=== PATIENT | female | born 1955 | race Caucasian/White ===

== ENCOUNTER 2019-11-02 09:31 | Outpatient (CLI) | payer OTHER, SELFPAY ==
--- NOTE | ~2019-11-02 | MM_ITS ---
EXAMINATION: MM screening [facility] BI w eli HISTORY: Screening mammogram TECHNIQUE: Craniocaudal and mediolateral oblique 3-D tomosynthesis images were obtained and synthetic 2-D images were generated. CAD analysis was submitted and interpreted. COMPARISON: 05/05/2017, 05/02/2016, 08/21/2014 BREAST PARENCHYMAL COMPOSITION: There are scattered areas of fibroglandular density. FINDINGS: Scattered benign-appearing calcifications are present. There is no evidence of suspicious m ass, calcification, or architectural distortion to suggest malignancy in either breast. There has bee n no suspicious interval change. IMPRESSION: 1. No mammographic evidence of malignancy. 2. Recommend routine screening mammography in one year. BI-RADS Category 2: Benign finding(s). Reviewed, dictated and finalized at location A.
--- NOTE | ~2019-11-02 | DEXA_ITS ---
BMD(1) Young-Adult(2) Age-Matched(3) Region (g/cm2) T-score Z-score WHO Classification L1 0.892 -2.0 -0.9 Osteopenia L2 0.829 -3.1 -2.0 Osteoporosis L3 1.024 -1.5 -0.4 Osteopenia L4 0.861 -2.8 -1.6 Osteoporosis L1-L4 0.900 -2.4 -1.2 Osteopenia Trend: L1-L4 Change vs Change vs Measured Age BMD(1) Baseline Previous Date (years) (g/cm2) (%) (%) 11/02/2019 [age] 0.900 -1.9 -1.9 05/02/2016 61.2 0.917 baseline - 1 - Statistically 68% of repeat scans fall within 1SD (+- 0.010 g/cm2 for AP Spine L1-L4) 2 - [place] (Combined NHANES (ages 20-30) / Kitchenbug (ages 20-40)) AP Spine Reference Population (v112) 3 - Matched for Age, Weight (females 25-100 kg), Ethnic 11 - World Health Organization - Definition of Osteoporosis and Osteopenia for Women: Normal = T-score at or above -1.0 SD; Osteopenia = T-score between -1.0 and -2.5 SD; Osteoporosis = T-score at or below -2.5 SD; (WHO definitions only apply when a young healthy Women reference database is used to determine T-scores.) Printed: 11/02/2019 10:22:30 AM (13.60)76:3.00:50.00:12.0 0.00:12.78 0.60x1.05 27.6:%Fat=34.7% 0.00:0.00 0.00:0.00 Filename: [id number] Scan Mode: Standard;iRewardChartcan 37.0 [employer] [id number] BMD(1) Young-Adult(2,7) Age-Matched(3) Region (g/cm2) T-score Z-score WHO Classification Neck Left 0.766 -2.0 -0.7 Osteopenia Right 0.760 -2.0 -0.8 Osteopenia Mean 0.763 -2.0 -0.7 Osteopenia Difference 0.006 0.0 0.0 - Total Left 0.843 -1.3 -0.3 Osteopenia Right 0.826 -1.4 -0.5 Osteopenia Mean 0.834 -1.4 -0.4 Osteopenia Difference 0.016 -0.1 -0.1 - Hip [place] Length Comparison (mm) (Right = 94.2 mm) (Mean = 101.3 mm) (Left = 94.8 mm) Trend: Total Mean Change vs Change vs Measured Age BMD(1) Baseline Previous Date (years) (g/cm2) (%) (%) 11/02/2019 64.7 0.834 baseline - 1 - Statistically 68% of repeat scans fall within 1SD (+- 0.010 g/cm2 for DualFemur Total) 2 - [place] (Combined NHANES (ages 20-30) / [employer]bug (ages 20-40)) Femur Reference Population (v112) 3 - Matched for Age, Weight (females 25-100 kg), Ethnic 7 - DualFemur Total T-score difference is 0.1. Asymmetry is None. 11 - World Health Organization - Definition of Osteoporosis and Osteopenia for Women: Normal = T-score at or above -1.0 SD; Osteopenia = T-score between -1.0 and -2.5 SD; Osteoporosis = T-score at or below -2.5 SD; (WHO definitions only apply when a young healthy Women reference database is used to determine T-scores.) Printed: 11/02/2019 10:22:31 AM (13.60); Filename: [id number]; Right Femur; 22.1:%Fat=40.9%; Neck Angle (deg)= 60; Scan Mode: Standard 37.0 uGy; Left Femur; 21.7:%Fat=43.8%; Neck Angle (deg)= 67; Scan Mode: Standard 37.0 uGy [employer] [id number] Dear Ramila Fong, Your patient Lisa Colon completed a BMD test on 11/02/2019 using the Media Redefined DXA System (analysis version: 13.60) manufactured by [employer]. The following summarizes the results of our evaluation. PATIENT BIOGRAPHICAL: Name: Lisa Colon Date: 1955 Height: 60.0 in. Gender: Female
== END 2019-11-02 09:32 | disposition home or self-care (01) ==
LOC: CHSIMG 09:33
PROVIDERS: PCP Nurse Practitioner Family; Visit Provider Nurse Practitioner Family
DX: Z12.31 Encounter for screening mammogram for malignant neoplasm of breast (principal); Z78.0 Asymptomatic menopausal state
CPT/HCPCS: 77063; 77067; 77080

== ENCOUNTER 2020-09-06 11:46 | Emergency (ER) | payer OTHER, SELFPAY ==
--- NOTE | ~2020-09-06 | CT_ITS ---
EXAMINATION: CT brain wo con DATE: 09/06/2020 12:44 INDICATION: Head injury post fall with laceration to left eyebrow TECHNIQUE: Computed tomography (CT) of the head was performed without intravenous contrast. Sagittal and coronal reconstructions were performed. The mA was adjusted according to patient size. Iterative reconstruction technique was employed. The dose-length product was 529.67 mGy-cm. COMPARISON: head CT dated 02/02/2017 FINDINGS: No fracture. No acute intracranial hemorrhage, acute infarction or abnormal extra axial fluid collect ion. Small region of encephalomalacia at the inferomedial right frontal lobe which could be related t o old infarct or trauma. There is mild scattered white matter hypoattenuation consistent with chronic small vessel ischemic disease. Symmetric prominence of the sulci consistent with mild age-appropriat e diffuse cerebral volume loss. Ventricles are normal and symmetric with normal variant cavum septum pellucidum et vergae. No mass/mass effect. A few small sclerotic lesions in the frontal bone which g iven lack of interval change in over 3 years or most likely benign. The orbits, paranasal sinuses and mastoid air cells are normal. IMPRESSION: 1. No fracture or acute intracranial process. 2. Unchanged small focus of encephalomalacia along the inferomedial right frontal lobe which could re present sequela of old infarct or trauma. 3. Age-related changes including mild diffuse volume loss and mild scattered white matter hypoattenua tion consistent with chronic small vessel ischemic disease. Reviewed, dictated and finalized at location A. IMPRESSION: 1. No fracture or acute intracranial process. 2. Unchanged small focus of encephalomalacia along the inferomedial right front al lobe which could represent sequela of old infarct or trauma. 3. Age-related changes including mild diffuse volume loss and mild scattered wh ite matter hypoattenuation consistent with chronic small vessel ischemic diseas e.
[2020-09-06 11:51] VITALS: BP 144/92; PULSE 58; RESP 18; TEMP 36.6; O2SAT 97
--- NOTE | 2020-09-06 11:52 | ECG_ITS ---
Measurements Intervals [place] Rate: 55 P: 52 NM: 147 QRS: 87 QRSD: 110 T: 14 QT: 397 QTc: 380 Interpretive Statements SINUS BRADYCARDIA INCOMPLETE RIGHT BUNDLE BRANCH BLOCK INFERIOR INFARCT, AGE INDETERMINATE ABNORMAL ECG Electronically Signed On 09-06-2020 12:12:10 CDT by Norris Hastings D.O.
[2020-09-06 12:07] LABS: Basophils Absolute Auto 0.06 K/mm3 (0.00-0.10); Hematocrit 36.5 % (35.0-42.0); Hemoglobin 11.6 g/dL (11.7-13.8); Immature Granulocyte Absolute 0.03 K/mm3 (0.00-0.00); Immature Granulocyte Percent A 0.5 % (0.0-0.0); Lymphocytes Absolute Auto 1.22 K/mm3 (1.10-4.50); Lymphocytes Percent Auto 20.5 % (18.0-42.0); Mean Corpuscular HGB Conc 31.8 g/dL (32.0-36.0); Mean Corpuscular Hemoglobin 29.7 pg (27.0-31.0); Mean Corpuscular Volume 93.6 fL (78.0-102.0); Mean Platelet Volume 8.9 fl (9.2-11.8); Monocytes Absolute Auto 0.58 K/mm3 (0.10-0.90); Monocytes Percent Auto 9.7 % (2.0-11.0); Neutrophils Absolute Auto 3.8 K/mm3 (1.7-7.2); Neutrophils Percent Auto 63.3 % (50.0-70.0); Platelet Count Result 271 K/mm3 (150-420); Red Cell Distribution Width 13.3 % (11.6-14.4)
[2020-09-06 12:35] LABS: Alanine Aminotransferase 35 U/L (14-59); Albumin Level 3.4 g/dL (3.4-5.0); Alkaline Phosphatase 198 U/L (46-116); Anion Gap 6 mmol/L (8-16); Aspartate Amino Transferase 24 U/L (15-37); Bilirubin,Total 0.2 mg/dL (0.00-1.00); Blood Urea Nitrogen 15 mg/dL (7-18); Calcium 9.9 mg/dL (8.5-10.1); Carbon Dioxide 27 mmol/L (21-32); Chloride 101 mmol/L (98-108); Estimated CRCL calculation 60 ml/min; Estimated Glomerular Filt Rate > 60; Glucose 94 mg/dL (70-99); Osmolality Calculated 278 mOsm/kg (285-295); Potassium 4.7 mmol/L (3.5-5.1); Sodium 134 mmol/L (136-145); Thyroid Stimulating Hormone 4.21 uIU/mL (0.36-3.74); Total Protein 8.5 g/dL (6.4-8.2)
[2020-09-06 12:45] VITALS: BP 145/48; PULSE 54
[2020-09-06 12:48] VITALS: BP 151/52; PULSE 56
[2020-09-06 12:52] LABS: Add Urine Microscopic? YES; Appearance Urine Clear (Clear); Bilirubin Urine Negative (Negative); Blood Urine Negative (Negative); Color Urine Yellow (Yellow); Glucose Urine UA Negative (Negative); Ketones Urine Negative (Negative); Leukocyte Esterase Ur 1+ (Negative); Nitrate Urine Negative (Negative); Protein Urine Negative (Negative); Urobilinogen Urine 0.2 mg/dL (0.2-1.0)
[2020-09-06 12:55] VITALS: PULSE 56; RESP 18; O2SAT 95
--- NOTE | 2020-09-06 12:57 | ED.FALL ---
HPI - Fall General Chief Complaint: Fall Stated Complaint: Ambulance Source: patient Mode of arrival: ambulatory Limitations: no limitations History of Present Illness HPI Narrative: this is a 65-year-old female who presents via EMS after she sent sustained a fall earlier today at home has a history of dizziness is currently on meclizine have a history of hypertension and depression, she fell hit her head known if she lost consciousness but the patient says she made lost consciousness for a few seconds has a history of hypothyroidism as well with an abrasion to the left eyebrow area with no nausea vomiting, no headache no fever chills no chest pain no arm or hip pain no neurological deficits no bowel or bladder loss. complaint: fall Onset (ago): hour(s) Fall from: standing Fall witnessed: no Place fall occurred: home Loss of consciousness: unsure Length of LOC: second(s) Prolonged down time: no Symptoms prior to fall: dizziness Location of injury: head Related Data Home Medications Medication Instructions Recorded Confirmed acetaminophen 650 mg PO Q4H PRN 09/06/20 09/06/20 albuterol sulfate 90 mcg INHALATION Q4-6H PRN 09/06/20 09/06/20 alendronate [Fosamax] 70 mg PO WEEKLY 09/06/20 09/06/20 aluminum-magnesium hydroxide 30 ml PO Q4H PRN 09/06/20 09/06/20 [Mylanta] amlodipine 100 mg PO QID PRN 09/06/20 09/06/20 carbamazepine 100 mg PO TID 09/06/20 09/06/20 clotrimazole 1 applic TOPICAL TID 09/06/20 09/06/20 docusate sodium 200 mg PO DAILY PRN 09/06/20 09/06/20 ergocalciferol (vitamin D2) 50,000 unit PO DAILY 09/06/20 09/06/20 famotidine 20 mg PO DAILY 09/06/20 09/06/20 guaifenesin [Robafen] 200 mg PO Q4H PRN 09/06/20 09/06/20 ibuprofen 600 mg PO BID 09/06/20 09/06/20 levothyroxine 112 mcg PO DAILY 09/06/20 09/06/20 loratadine 10 mg PO DAILY 09/06/20 09/06/20 meclizine 12.5 mg PO TID PRN 09/06/20 09/06/20 nystatin 1 applic TOPICAL BID 09/06/20 09/06/20 nystatin [Nystop] 1 applic TOPICAL BID 09/06/20 09/06/20 phenobarbital 64.8 mg PO DAILY 09/06/20 09/06/20 phenol [Chloraseptic] 2 spray MUCOUS MEMBRANE TID PRN 09/06/20 09/06/20 potassium chloride 20 meq PO DAILY 09/06/20 09/06/20 sertraline 50 mg PO DAILY 09/06/20 09/06/20 sertraline 100 mg PO DAILY 09/06/20 09/06/20 vitamin B complex [B 1 tablet PO DAILY 09/06/20 09/06/20 Complex-Vitamin B12] Allergies Allergy/AdvReac Type Severity Reaction Status Date / Time Penicillins Allergy Unknown Verified 09/06/20 11:55 Review of Systems Review of Systems: All systems reviewed & are unremarkable except as noted in HPI and below PMFSH Past Medical History Medical History HTN (hypertension) Hypothyroidism (acquired) Exam Const: General: healthy appearing, no acute distress and alert Orientation/consciousness: patient oriented x3 HENMT: Head: normal to inspection Eyes: Conjunctivae: conjunctivae normal Pupils: Equal, round and reactive pupils present Neck: Neck: normal visual inspection, no lymphadenopathy and no meningeal signs Chest: Chest palpation & inspection: normal inspection of the chest Resp: Effort & Inspection: normal respiratory effort Cardio: Rate: regular rate Rhythm: regular rhythm GI: Auscultation: normal bowel sounds : General: Yes no CVA tenderness Skin: General skin exam: normal color Other: abrasion over left eyebrow Neuro: General: patient oriented x3, moves all extremities, no meningeal signs and no focal motor deficits Speech: normal speech Gait exam (Neuro): Normal gait present Extrem: General: normal to inspection and no pedal edema Psych: Appearance: grossly normal and well kempt Mental Status: mental status grossly normal Affect: normal affect Thought content: Yes Normal thought content present Course Course Emergency Course: reassessment of patient, patient is doing well reviewed her CT scan and lab findings with the patient and currently she is not orthos
[2020-09-06 12:58] LABS: Bacteria Urine 1+ /hpf; RBC Urine None seen /hpf (0-2); Squamous Epithelial Cell Urine Few /hpf (Few)
[2020-09-06] MEDS: TETANUS,DIPHTHERIA,AC PERTUSSIS ADULT 0.5 ML (ADACEL) IM (13:10)
[2020-09-06 13:33] VITALS: BP 161/62; PULSE 58; RESP 16; O2SAT 99
== END 2020-09-06 13:32 | disposition home or self-care (01) ==
PROVIDERS: Emergency Provider Emergency Medicine; PCP Internal Medicine
DX: R55 Syncope and collapse (principal); N30.00 Acute cystitis without hematuria
CPT/HCPCS: 36415; 70450; 80053; 81001; 84443; 85025; 90471; 90715; 93005; 99283; 99284

== ENCOUNTER 2020-11-05 11:34 | Outpatient (CLI) | payer OTHER, SELFPAY ==
--- NOTE | ~2020-11-05 | XR_ITS ---
EXAMINATION: XR knee RT 3V DATE: 11/05/2020 12:03 INDICATION: Right knee pain. TECHNIQUE: 3 views of right knee were obtained. COMPARISON: Right knee radiographs 10/11/2015 FINDINGS: Bone alignment is normal. No fracture. There is moderate osteoarthritis of lateral compartm ent and mild osteoarthritis of medial and patellofemoral compartments. There is a small knee joint ef fusion. IMPRESSION: 1. Moderate right knee osteoarthritis. 2. Small right knee joint effusion. Reviewed, dictated and finalized at location A.
--- NOTE | ~2020-11-05 | MM_ITS ---
EXAMINATION: MM screening [facility] BI w eli HISTORY: Screening mammogram TECHNIQUE: Craniocaudal and mediolateral oblique 3-D tomosynthesis images were obtained and synthetic 2-D images were generated. CAD analysis was submitted and interpreted. COMPARISON: 11/02/2019, 05/05/2017, 05/02/2016 BREAST PARENCHYMAL COMPOSITION: There are scattered areas of fibroglandular density. FINDINGS: There is no evidence of suspicious mass, calcification, or architectural distortion to sugg est malignancy in either breast. There has been no suspicious interval change. IMPRESSION: 1. No mammographic evidence of malignancy. 2. Recommend routine screening mammography in one year. BI-RADS Category 1: Negative Reviewed, dictated and finalized at location A.
== END 2020-11-05 11:35 | disposition home or self-care (01) ==
LOC: CHSIMG 11:37
PROVIDERS: PCP Internal Medicine; Visit Provider Internal Medicine
DX: M25.561 Pain in right knee (principal); Z12.31 Encounter for screening mammogram for malignant neoplasm of breast
CPT/HCPCS: 73562; 77063; 77067

== ENCOUNTER 2020-12-17 09:54 | Outpatient (CLI) | payer OTHER, SELFPAY ==
[2020-12-17 11:21] LABS: Anion Gap 8 mmol/L (8-16); Blood Urea Nitrogen 10 mg/dL (7-18); Calcium 9.5 mg/dL (8.5-10.1); Carbon Dioxide 25 mmol/L (21-32); Chloride 102 mmol/L (98-108); Estimated Glomerular Filt Rate > 60; Glucose 96 mg/dL (70-99); Osmolality Calculated 279 mOsm/kg (285-295); Potassium 5.4 mmol/L (3.5-5.1); Sodium 135 mmol/L (136-145)
== END 2020-12-17 09:55 | disposition home or self-care (01) ==
LOC: CHSLAB 09:55
PROVIDERS: PCP Internal Medicine; Visit Provider Internal Medicine
DX: I10 Essential (primary) hypertension (principal)
CPT/HCPCS: 36415; 80048

== ENCOUNTER 2021-01-15 18:06 | Emergency (ER) | payer OTHER, SELFPAY ==
--- NOTE | ~2021-01-15 | CT_ITS ---
EXAMINATION: CT brain wo con DATE: 01/15/2021 19:17 INDICATION: Fall with anterior left scalp laceration. TECHNIQUE: Computed tomography (CT) of the head was performed without intravenous contrast. Sagittal and coronal reconstructions were performed. The mA was adjusted according to patient size. Iterative reconstruction technique was employed. The dose-length product was 681.00 mGy-cm. COMPARISON: head CT dated 09/06/2020 and 02/02/2017 FINDINGS: Small scalp hematoma along the superolateral rim of the left orbit. No fracture. No interval change i n a small region of encephalomalacia along the inferomedial anterior right frontal lobe likely sequel a of old infarct or trauma. No acute intracranial hemorrhage, acute infarction or abnormal extra axia l fluid collection. There is mild scattered white matter hypoattenuation consistent with chronic smal l vessel ischemic disease. Symmetric prominence of the sulci consistent with mild age-appropriate dif fuse cerebral volume loss. Ventricles are normal and symmetric with normal variant cavum septum lucid um et vergae. No mass/mass effect. Again seen are a few unchanged likely benign chronic small sclerot ic bone lesions which can be seen dating back to CT dated 02/02/2017. The orbits, paranasal sinuses an d mastoid air cells are normal. IMPRESSION: 1. No fracture or acute intracranial process. 2. Unchanged small focus of encephalomalacia along the inferomedial anterior right frontal lobe which could represent sequela of old infarct or trauma. 2. Age-related changes including mild diffuse volume loss and mild scattered white matter hypoattenua tion consistent with chronic small vessel ischemic disease. Reviewed, dictated and finalized at location A. IMPRESSION: 1. No fracture or acute intracranial process. 2. Unchanged small focus of encephalomalacia along the inferomedial anterior ri ght frontal lobe which could represent sequela of old infarct or trauma. 2. Age-related changes including mild diffuse volume loss and mild scattered wh ite matter hypoattenuation consistent with chronic small vessel ischemic diseas e.
--- NOTE | ~2021-01-15 | CT_ITS ---
EXAMINATION: CT cervical spine wo con DATE: 01/15/2021 19:17 INDICATION: Head injury post fall TECHNIQUE: Computed tomography (CT) of the cervical spine was performed without intravenous contrast. Automated exposure control and iterative reconstruction technique were employed. The dose-length pro duct was 681.00 mGy-cm. COMPARISON: Thoracic spine MR dated 07/20/2013 FINDINGS: Alignment is normal. Moderate osteoarthritis at the atlantoaxial articulation with cystic change at t he base of the dens. Vertebral body heights are normal. No fracture. Moderate disc height loss at C5- C6 with posterior disc osteophyte complex resulting in mild to moderate central canal stenosis. Disc bulges throughout the remainder of the cervical spine result in multilevel mild central canal stenosi s. Additional mild disc height loss at C4-C5 and C6-C7. Severe uncovertebral osteoarthritis bilateral ly at C5-C6 and on the left at both C4-C5 and C6-C7. Severe facet osteoarthritis on the left at C4-C5 with results in moderate neural foraminal stenosis. Multilevel mild to moderate uncovertebral and fa cet osteoarthritis contributing to mild neural foraminal stenosis of the left and right at multiple l evels of the remaining cervical spine. Cervical soft tissues and apices of lungs are unremarkable. IMPRESSION: 1. Moderate cervical spondylosis. No acute osseous abnormality. Reviewed, dictated and finalized at location A.
--- NOTE | ~2021-01-15 | XR_ITS ---
EXAMINATION: XR chest 1V portable DATE: 01/15/2021 19:17 INDICATION: Syncope TECHNIQUE: frontal view of the chest was obtained. COMPARISON: Chest radiograph dated 05/11/2019 FINDINGS: The lungs are clear with no focal airspace opacities, pulmonary edema, pleural effusion or pneumothor ax. The cardiomediastinal silhouette is within normal limits for AP technique. Moderate thoracic spon dylosis. IMPRESSION: 1. No acute cardiopulmonary disease. Reviewed, dictated and finalized at location A.
--- NOTE | 2021-01-15 18:28 | ECG_ITS ---
Measurements Intervals [place] Rate: 53 P: 61 [place]: 146 QRS: 76 QRSD: 114 T: 27 QT: 420 QTc: 397 Interpretive Statements SINUS BRADYCARDIA INCOMPLETE RIGHT BUNDLE BRANCH BLOCK MINIMAL Q WAVES- INFERIOR LEADS BORDERLINE ECG Electronically Signed On 01-15-2021 20:23:57 CDT by Norris Hastings D.O.
--- NOTE | 2021-01-15 18:34 | ED.FALL ---
HPI - Fall General Chief Complaint: Fall Stated Complaint: AMB Time Seen by Provider: 01/15/21 18:08 Source: patient, EMS and RN notes reviewed Mode of arrival: EMS Limitations: no limitations History of Present Illness MD complaint: fall Onset (ago): hour(s) (1) Fall from: standing Place fall occurred: street Loss of consciousness: none Prolonged down time: no Symptoms prior to fall: dizziness and palpitations Context: tripped/slipped Location of injury: face Severity scale (1-10): 4 Quality: dull and aching Associated symptoms (after fall): headache and lightheaded Related Data Home Medications Medication Instructions Recorded Confirmed acetaminophen 650 mg PO Q4H PRN 09/06/20 01/15/21 albuterol sulfate 90 mcg INHALATION Q4-6H PRN 09/06/20 01/15/21 alendronate [Fosamax] 70 mg PO WEEKLY 09/06/20 01/15/21 aluminum-magnesium hydroxide 30 ml PO Q4H PRN 09/06/20 01/15/21 [Mylanta] amlodipine 10 mg PO DAILY 09/06/20 01/15/21 carbamazepine 100 mg PO TID 09/06/20 01/15/21 clotrimazole 1 applic TOPICAL TID 09/06/20 01/15/21 ergocalciferol (vitamin D2) 50,000 unit PO DAILY 09/06/20 01/15/21 famotidine 20 mg PO DAILY 09/06/20 01/15/21 guaifenesin [Robafen] 200 mg PO Q4H PRN 09/06/20 01/15/21 ibuprofen 600 mg PO BID 09/06/20 01/15/21 levothyroxine 112 mcg PO DAILY 09/06/20 01/15/21 loratadine 10 mg PO DAILY 09/06/20 01/15/21 meclizine 12.5 mg PO TID PRN 09/06/20 01/15/21 nystatin 1 applic TOPICAL BID 09/06/20 01/15/21 nystatin [Nystop] 1 applic TOPICAL BID 09/06/20 01/15/21 phenobarbital 64.8 mg PO DAILY 09/06/20 01/15/21 phenol [Chloraseptic] 2 spray MUCOUS MEMBRANE TID PRN 09/06/20 01/15/21 potassium chloride 20 meq PO DAILY 09/06/20 01/15/21 sertraline 50 mg PO DAILY 09/06/20 01/15/21 sertraline 100 mg PO DAILY 09/06/20 01/15/21 vitamin B complex [B 1 tablet PO DAILY 09/06/20 01/15/21 Complex-Vitamin B12] carbamazepine 200 mg PO TID 01/15/21 01/15/21 ergocalciferol (vitamin D2) 50,000 unit PO WEEKLY 01/15/21 01/15/21 lorazepam 1 mg PO BID 01/15/21 01/15/21 lovastatin 10 mg PO DAILY 01/15/21 01/15/21 phenytoin sodium extended 100 mg PO TID 01/15/21 01/15/21 quetiapine 100 mg PO DAILY 01/15/21 01/15/21 Allergies Allergy/AdvReac Type Severity Reaction Status Date / Time aspirin Allergy Unknown Verified 01/15/21 21:27 Penicillins Allergy Unknown Verified 01/15/21 21:27 Review of Systems Review of Systems: All systems reviewed & are unremarkable except as noted in HPI and below Neurologic: Reports dizziness PMFSH Past Medical History Medical History HTN (hypertension) Hypothyroidism (acquired) Exam Const: General: no acute distress and alert Nutritional Appearance: well nourished Orientation/consciousness: patient oriented x3 Other: 0.5cm diameter nasal bridge abrasion with 2 or 3 other smaller superficial facial abrasions. HENMT: Ears: external ears normal and TM's normal bilaterally General nose exam: Normal nares present Mouth: Yes lip normal and Yes moist mucous membranes Teeth and gingiva: dentition normal Eyes: Conjunctivae: conjunctivae normal Pupils: Equal, round and reactive pupils present EOM: EOMs intact bilaterally Neck: Neck: normal visual inspection and no lymphadenopathy Chest: Chest palpation & inspection: normal inspection of the chest Resp: Effort & Inspection: normal respiratory effort Auscultation: clear to auscultation bilaterally Cardio: Rate: bradycardic GI: GI Palp: Yes Soft to palpation (non-tender) Percussion: Yes normal to percussion : General: Yes bladder normal to palpation and Yes no CVA tenderness Back/Spine/Pelvis: Back: no CVA tenderness Other: Pt ambulated normally in the ED with no acute hip pain. Skin: General skin exam: normal color Rashes: no rashes Neuro: General: patient oriented x3, moves all extremities, no meningeal signs, no focal motor deficits and CN's II-XI intact bilaterally Extrem:
[2021-01-15] MEDS: SODIUM CHLORIDE 0.9% IV 500 ML 999 ML IV CONT (18:45)
[2021-01-15 18:49] LABS: Basophils Absolute Auto 0.05 K/mm3 (0.00-0.10); Eosinophils Absolute Auto 0.19 K/mm3 (0.02-0.50); Eosinophils Percent Auto 3.7 % (1.0-6.0); Hematocrit 39.4 % (35.0-42.0); Hemoglobin 11.2 g/dL (11.7-13.8); Immature Granulocyte Absolute 0.02 K/mm3 (0.00-0.00); Immature Granulocyte Percent A 0.4 % (0.0-0.0); Lymphocytes Absolute Auto 1.05 K/mm3 (1.10-4.50); Lymphocytes Percent Auto 20.2 % (18.0-42.0); Mean Corpuscular HGB Conc 28.4 g/dL (32.0-36.0); Mean Corpuscular Hemoglobin 29.2 pg (27.0-31.0); Mean Corpuscular Volume 102.9 fL (78.0-102.0); Mean Platelet Volume 9.8 fl (9.2-11.8); Monocytes Absolute Auto 0.53 K/mm3 (0.10-0.90); Monocytes Percent Auto 10.2 % (2.0-11.0); Neutrophils Absolute Auto 3.4 K/mm3 (1.7-7.2); Neutrophils Percent Auto 64.5 % (50.0-70.0); Platelet Count Result 141 K/mm3 (150-420); Red Blood Count 3.83 M/mm3 (4.20-5.40); Red Cell Distribution Width 13.8 % (11.6-14.4); White Blood Count 5.2 K/mm3 (4.8-10.8)
[2021-01-15 19:08] LABS: Alanine Aminotransferase 31 U/L (14-59); Albumin Level 3.2 g/dL (3.4-5.0); Alkaline Phosphatase 147 U/L (46-116); Anion Gap 10 mmol/L (8-16); Aspartate Amino Transferase 30 U/L (15-37); Bilirubin,Total 0.2 mg/dL (0.00-1.00); Blood Urea Nitrogen 14 mg/dL (7-18); Calcium 9.4 mg/dL (8.5-10.1); Carbon Dioxide 21 mmol/L (21-32); Chloride 102 mmol/L (98-108); Estimated Glomerular Filt Rate > 60; Glucose 132 mg/dL (70-99); Osmolality Calculated 278 mOsm/kg (285-295); Sodium 133 mmol/L (136-145); Total Protein 7.6 g/dL (6.4-8.2)
[2021-01-15 19:11] LABS: Troponin I 62.9 ng/L (0.00-60.4)
[2021-01-15] MEDS: IBUPROFEN 400 MG TABLET 800 MG PO (19:15)
[2021-01-15] MEDS: ACETAMINOPHEN 325 MG TABLET 650 MG PO (19:15)
[2021-01-15 19:23] LABS: Add Urine Microscopic? YES; Appearance Urine Clear (Clear); Bilirubin Urine Negative (Negative); Blood Urine Negative (Negative); Color Urine Light Yellow (Yellow); Glucose Urine UA Negative (Negative); Ketones Urine Negative (Negative); Leukocyte Esterase Ur 2+ (Negative); Nitrate Urine Negative (Negative); Protein Urine Negative (Negative); Specific Grav Ur 1.015 (1.010-1.020); Urobilinogen Urine 0.2 mg/dL (0.2-1.0); pH Urine 6.5 (5.0-8.0)
[2021-01-15 19:28] LABS: RBC Urine 0-2 /hpf (0-2); Squamous Epithelial Cell Urine Few /hpf (Few)
[2021-01-15 19:29] LABS: Bacteria Urine Trace /hpf
[2021-01-15 19:40] VITALS: BP 169/55; PULSE 94; RESP 20; TEMP 36.6; O2SAT 94
[2021-01-15] MEDS: NEOMYCIN/POLYMYXIN/BACITRACIN OINTMENT PACKET 1 PACKET (20:20)
[2021-01-15 20:51] LABS: Troponin I 205.1 ng/L (0.00-60.4)
[2021-01-15 21:00] VITALS: BP 164/46; PULSE 53; RESP 20; O2SAT 95
--- NOTE | 2021-01-15 21:44 | PC.NURSE ---
2099 HARD C-COLLAR REMOVED PER DR GUILLERMO'S REQUEST
[2021-01-15] MEDS: ENOXAPARIN 1 MG/KG 75 MG SUB-Q (22:32)
[2021-01-15 22:36] VITALS: BP 154/51; PULSE 49; RESP 20; TEMP 36.7; O2SAT 95
== END 2021-01-15 22:44 | disposition short-term general hospital (02) ==
PROVIDERS: Emergency Provider Emergency Medicine; PCP Internal Medicine
DX: R79.9 Abnormal finding of blood chemistry, unspecified (principal); R55 Syncope and collapse; N30.00 Acute cystitis without hematuria
CPT/HCPCS: 36415; 70450; 71045; 72125; 80053; 81001; 84484; 85025; 93005; 96361; 96365; 96372; 99285; A9270; J0696; J1650; J7040

== ENCOUNTER 2021-01-15 23:24 | Observation (INO) | payer OTHER, SELFPAY ==
--- NOTE | ~2021-01-15 | NM_ITS ---
EXAMINATION: NM pablo stress w perfusion DATE: 01/17/2021 12:41 CDT INDICATION: Elevated troponin TECHNIQUE: Rest images were obtained following intravenous administration of 10.2 mCi Tc99m tetrofosm in (Myoview). The patient was infused intravenously with Lexiscan (regadenoson). Then, 31.2 mCi Tc99m tetrofosmin (Myoview) was administered intravenously, and stress images were obtained. Data was belem nstructed into short axis and horizontal and vertical long axis SPECT images. Gated SPECT images were also obtained. COMPARISON: None. FINDINGS: There is no definite reversible or fixed perfusion abnormality to suggest ischemia or infar ction. There is no segmental wall motion abnormality. Left ventricular ejection fraction measures 7 8%. IMPRESSION: 1. No definite ischemia or infarct. 2. Normal left ventricular ejection fraction measuring 78%. Reviewed, dictated and finalized at location A.
--- NOTE | 2021-01-15 23:35 | PM.IMHP ---
H&P: HPI History of Present Illness Date/Time: 01/15/21 23:35 Chief Complaint: Fall Narrative: 65-year-old female past medical history of intellectual disability, seizure disorder, hypertension and hyperlipidemia who presented to [facility] after a fall. The patient resides at a [facility]. She reports that she was walking when she tripped and fell. She reports that she is chronically dizzy ever since she had a head injury at the age of 5. However just before this fall she did become more lightheaded than usual. She does have frequent episodes of feeling lightheaded. She did hit her head but did not have any loss of consciousness. She denies any syncope that may have contributed to the fall. She has not been having any chest pain or increased shortness of breath. She reports that she has been short of breath with act activity for many years. She denies any orthopnea or paroxysmal nocturnal dyspnea. She has not been having any cough or congestion. She denies any fevers or chills. On presentation to [facility] the patient was bradycardic with heart rates in the 40s to 50s. She is not on any AV francisco agents or beta-blockers at home. She reports discomfort in her right upper tooth and her tooth is loose. She has extremely poor dentition with multiple dental caries and periodontal disease. She had a CT scan at [facility] which demonstrated no acute process. She does have chronic shortness of breath. She denies history of COPD however she is on inhalers. She denies any lower extremity swelling. She reports a history of diabetes but is not on any diabetic medications. She does have intermittent constipation but her last bowel movement was yesterday. She denied any hematochezia or melena. she denies any urinary symptoms. At the outside facility the patient received 1 full-dose aspirin and 1 dose of Lovenox 1 milligram/kilogram. She states that she is her own guardian. Her parents are . Her sister took her child or child was born and she does not really know her daughter. She reports that her family hates her and she does not have anyone that she would want to be her surrogate decision maker in the case of emergency. Review of Systems Review of Systems: 12 systems were reviewed with pertinent positives and negatives per HPI. Except as documented in the HPI, all other systems were reviewed and are negative. 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 She is on disability. She used to smoke 1 pack of cigarettes per day for 33 years but quit smoking in 2007. She denies any history of alcohol or drug use. She has 1 daughter that was raised by her sister. The patient is not in contact with her daughter. Primary care physician: Dr. Almazan Code status: Full code Surrogate decision maker: None Smoking status: Former smoker Alcohol intake: never Substance use: never Substance use type: does not use Spiritual care concerns: No Meds Home Medications and Allergies Home Medications Medication Instructions Recorded Confirmed Type acetaminophen 650 mg PO Q4H PRN 09/06/2012/27
--- NOTE | 2021-01-15 23:39 | ADMGEN ---
This patient, Lisa Colon, was admitted to IMU Room 206-02. Patient/family oriented to hospital policies and general routines including ID bracelet, bed and alarms, visiting hours, pain management, procedures, bathroom and other care routines, personal items, smoking policy, room service/diet, and visiting hours. Information on how to activate the Rapid Response Team has been discussed. Patient/Family are encouraged to report perceived risks to care and to ask questions if they do not understand what they are told or what they should do.
[2021-01-15 23:43] VITALS: BP 119/82; PULSE 50; RESP 20; TEMP 36.6; O2SAT 100; BMI 32.1
[2021-01-15 23:57] VITALS: BP 119/82; PULSE 50; RESP 20; TEMP 36.6; O2SAT 100; BMI 32.1
[2021-01-16] VITALS (14 sets, daily range): BP systolic 146–176; BP diastolic 39–61; PULSE 49–93; RESP 18–20; TEMP 36.2–36.7; O2SAT 97–100
--- NOTE | 2021-01-16 | ECHO_ITS ---
Patient Info Name: Lisa Colon Age: 65 years : 1955 Gender: Female Ht: 60 in Wt: 165 lbs BSA: 1.81 m2 HR: 56 bpm BP: 152 / 61 mmHg Technical Quality: Good Exam Date: 01/16/2021 10:06 AM Exam Location: [facility] Pulmonary Exam Room: [facility] Patient Status: Outpatient Admit Date: 01/15/2021 Staff Ordering Physician: Love Chun DO Director Sales Support: Jenna Cruz RCS Attending Provider: Grazyna Badillo PA-C Referring Physician: Adiel DAS; Exam Type: CA echo doppler color flow Study Info Indications - elevated troponins lazo Complete two-dimensional, color flow and Doppler transthoracic echocardiogram is performed. Summary 1. Complete two-dimensional, color flow and Doppler transthoracic echocardiogram is performed. 2. Left ventricular chamber dimension is normal. 3. Left ventricular systolic function is normal, estimated at 60-65%. 4. The left ventricular diastolic function is abnormal. 5. E/e' 12 is mildly elevated. 6. Left atrial chamber dimension is moderately enlarged. 7. No pulmonary hypertension, estimated pulmonary arterial systolic pressure is 25 mmHg. Left Ventricle E/e' 12 is mildly elevated. Left ventricular chamber dimension is normal. Left ventricular systolic function is normal, estimated at 60-65%. The left ventricular diastolic function is abnormal. Right Ventricle Right ventricular chamber dimension is normal. Right ventricular systolic function is normal. Left Atria Left atrial chamber dimension is moderately enlarged. Right Atria Right atrial chamber dimension is normal. Aortic Valve The aortic valve is trileaflet. There is no aortic valve stenosis. There is no aortic valve regurgitation. Pulmonic Valve There is no pulmonic regurgitation. Mitral Valve There is no mitral valve stenosis. There is no mitral valve regurgitation. Tricuspid Valve There is no tricuspid valve regurgitation. No pulmonary hypertension, estimated pulmonary arterial systolic pressure is 25 mmHg. Pericardium/Pleural There is no pericardial effusion. Inferior Vena Cava Normal inferior vena cava with >50% collapse upon inspiration consistent with normal right atrial pressure, 5 mmHg. Aorta The aortic root size at the sinus of Valsalva is normal. Left Ventricular Outflow Tract Name Value Normal LVOT 2D LVOT Diameter 2.0 cm LVOT Doppler LVOT Peak Gradient 5 mmHg LVOT Mean Gradient 3 mmHg LVOT VTI 30 cm LVOT VTI/AV VTI Ratio 0.8 LVOT Stroke Volume 93 ml LVOT CO 15.9 l/min LVOT CI 8.8 l/min/m2 Pulmonic Valve Name Value Normal PV Doppler PV Peak Gradient 5 mmHg Mitral
[2021-01-16 03:56] LABS: Troponin I 0.102 ng/mL (0.000-0.034)
[2021-01-16] MEDS: LEVOTHYROXINE SODIUM 112 MCG TABLET PO (06:47)
[2021-01-16] MEDS: ACETAMINOPHEN 325 MG TABLET 650 MG PO (08:06)
[2021-01-16] MEDS: FAMOTIDINE 20 MG TABLET PO (08:09)
[2021-01-16] MEDS: QUEtiapine FUMARATE 100 MG TABLET PO (08:09)
[2021-01-16] MEDS: LOVASTATIN 10 MG TABLET PO (08:09)
[2021-01-16] MEDS: POTASSIUM CHLORIDE 20 MEQ TABLET.ER PO (08:09)
[2021-01-16] MEDS: amLODIPine BESYLATE 5 MG TABLET 10 MG PO (08:10)
[2021-01-16] MEDS: LORATADINE 10 MG TABLET PO (08:11)
[2021-01-16] MEDS: LORazepam (*CRX) 1 MG TABLET PO ×2 (08:15→17:33)
[2021-01-16 08:51] LABS: Glucose Point of Care 103 mg/dl (65-105)
[2021-01-16] MEDS: SERTRALINE HCL 50 MG TABLET 150 MG PO (10:24)
[2021-01-16 13:09] LABS: Glucose Point of Care 101 mg/dl (65-105)
[2021-01-16] MEDS: polyethylene glycoL 3350 17 GM POWD.PACK PO (13:59)
[2021-01-16] MEDS: PHENYTOIN SODIUM 100 MG CAP PO ×2 (13:59→17:33)
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
--- NOTE | 2021-01-16 16:04 | PC.NURSE ---
On 01/16/21, the student, Asha PEARL [facility], provided care and completed [employer] documentation on this patient. I have reviewed the student's documentation and agree with the findings.
[2021-01-16 16:53] LABS: Glucose Point of Care 99 mg/dl (65-105)
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
[2021-01-16 20:20] LABS: Glucose Point of Care 129 mg/dl (65-105)
[2021-01-16] MEDS: hydrALAZINE HCL 25 MG TABLET PO (20:27)
[2021-01-16 21:11] LABS: Free T4 Free Thyroxine 0.99 ng/mL (0.78-2.19)
[2021-01-17] VITALS (10 sets, daily range): BP systolic 150–174; BP diastolic 56–68; PULSE 54–74; RESP 12–20; TEMP 36.2–36.7; O2SAT 95–99
[2021-01-17 05:35] LABS: Hematocrit 39.6 % (37.0-47.0); Hemoglobin 12.6 g/dL (12.0-15.0)
[2021-01-17] MEDS: LEVOTHYROXINE SODIUM 112 MCG TABLET PO (06:12)
--- NOTE | 2021-01-17 08:19 | PM.PNCARD ---
Progress Note: A&P Assessment and Plan (1) Elevated troponin: Code(s): R77.8 - Other specified abnormalities of plasma proteins Status: Acute Assessment and Plan: Could be related to UTI. No symptoms to suggest ACS. Troponin downtrended and mild. Echo shows no wall motion abnormalities. Obtain lexiscan myoview this morning. If negative, no further cardiac workup is needed. (2) Dizziness: Code(s): R42 - Dizziness and giddiness Status: Acute (3) HTN (hypertension): Code(s): I10 - Essential (primary) hypertension Status: Acute Assessment and Plan: Mildly high. Increase Hydralazine 50 mg PO BID. (4) Hyperlipidemia: Code(s): E78.5 - Hyperlipidemia, unspecified Status: Inactive Assessment and Plan: On lovastatin. Subjective Date/time seen: 01/17/21 08:19 Denies chest pain or sob or dizziness. Exam Const: General: cooperative, healthy appearing and comfortable Nutritional Appearance: obese Resp: Auscultation: clear to auscultation bilaterally, no crackles, no rales, no rhonchi and no wheezes Cardio: Jugular venous distension: no JVD Rate: regular rate Rhythm: regular rhythm Heart sounds: no murmurs Peripheral pulses: dorsalis pedis present GI: GI Palp: No abdominal tenderness and Yes Soft to palpation Neuro: General: oriented to person, oriented to place and oriented to time Extrem: Right lower extremity: no edema Left lower extremity: no edema Objective Data Vital Signs Vital Signs: Vital Signs - 24 hr 01/16/21 10:00 01/16/21 12:00 01/16/21 14:00 Temperature 97.4 F L Pulse Rate 58 L 57 L 61 Respiratory Rate 20 Blood Pressure 146/47 H Pulse Oximetry 97 01/16/21 16:00 01/16/21 18:00 01/16/21 20:00 Temperature 97.2 F L 98.0 F Pulse Rate 93 61 54 L Respiratory Rate 20 20 Blood Pressure 154/39 H 176/54 H Pulse Oximetry 99 97 01/16/21 22:00 01/16/21 23:45 01/17/21 00:00 Temperature 98.0 F Pulse Rate 54 L 60 58 L Respiratory Rate 18 18 Blood Pressure 154/60 H Pulse Oximetry 99 99 01/17/21 02:00 01/17/21 04:00 01/17/21 06:00 Temperature 97.9 F Pulse Rate 56 L 74 58 L Respiratory Rate 20 Blood Pressure 159/68 H Pulse Oximetry 98 Intake/Output Intake/Output: Intake & Output 01/14/21 01/15/21 01/16/21 01/17/21 23:59 23:59 23:59 23:59 Intake Total 1040 300 Output Total 2975 1000 Balance -1935 -700 Meds/Results Medications: Active Medications Generic Name Dose Route Start Last Admin Trade Name Freq PRN Reason Stop Dose Admin Acetaminophen 650 mg 01/15/21 23:30 01/16/21 08:06 Acetaminophen 325 Mg Tablet PO 650 mg Q4H PRN Administration Mild Pain (1-3) or Fever Al Hydrox/Mg Hydrox/Simethicone 30 ml 01/16/21 04:37 Mag Hydrox/Al Hydrox/Simeth 30 Ml Udc PO Q4H PRN Nausea Albuterol 1 puff 01/16/21 04:37 Albuterol Sulfate (*Sp) Aerosol 1 Puff INHALATION Q4-6H PRN Wheezing Amlodipine Besylate 10 mg 01/16/21 09:00 01/16/21 08:10 Amlodipine Besylate 5 Mg Tablet PO 10 mg DAILY JOSE Administration Carbamazepine 100 mg 01/16/21 08:00 01/16/21 17:33 Carbamazepine Chew 100 Mg Chew PO 100 mg TIDWM JOSE Administration Famotidine 20 mg 01/16/21 09:00 01/16/21 08:09 Famotidine 20 Mg Tablet PO 20 mg DAILY JOSE Administration Hydralazine HCl 50 mg 01/17/21 09:00 Hydralazine Hcl 50 Mg Tablet PO Q12HR JOSE Levothyroxine Sodium 112 mcg 01/16/21 06:30 01/17/21 06:12 Levothyroxine Sodium 112 Mcg Tablet PO 112 mcg DAILY@0630 JOSE Administration Loratadine 10 mg 01/16/21 09:00 01/16/21 08:11 Loratadine 10 Mg Tablet PO 10 mg DAILY JSOE Administration Lorazepam 1 mg 01/16/21 09:00 01/16/21 17:33 Lorazepam (*Crx) 1 Mg Tablet PO 1 mg BID JOSE Administration Lovastatin 10 mg 01/16/21 09:00 01/16/21 08:09 Lovastatin 10 Mg Tablet PO 10 mg DAILY JOSE Administra
[2021-01-17 08:23] LABS: Glucose Point of Care 97 mg/dl (65-105)
[2021-01-17] MEDS: hydrALAZINE HCL 50 MG TABLET PO (08:55)
[2021-01-17] MEDS: LORATADINE 10 MG TABLET PO (08:55)
[2021-01-17] MEDS: SERTRALINE HCL 50 MG TABLET 150 MG PO (08:56)
[2021-01-17] MEDS: QUEtiapine FUMARATE 100 MG TABLET PO (08:57)
[2021-01-17] MEDS: PHENYTOIN SODIUM 100 MG CAP PO ×3 (08:57→17:53)
[2021-01-17] MEDS: FAMOTIDINE 20 MG TABLET PO (08:57)
[2021-01-17] MEDS: POTASSIUM CHLORIDE 20 MEQ TABLET.ER PO (08:57)
[2021-01-17] MEDS: amLODIPine BESYLATE 5 MG TABLET 10 MG PO (08:57)
[2021-01-17] MEDS: LOVASTATIN 10 MG TABLET PO (08:57)
--- NOTE | 2021-01-17 09:00 | EST_ITS ---
Patient Info Name: Lisa Colon Age: 65 years : 1955 Gender: Female Ht: 60 in Wt: 165 lbs BSA: 1.81 m2 HR: 63 bpm BP: 152 / 64 mmHg Heart Rhythm: Sinus Rhythm Exam Date: 01/17/2021 10:58 AM Exam Location: [facility] Stress Patient Status: Inpatient Admit Date: 01/15/2021 Staff Ordering Physician: Norris Hastings DO Attending Provider: Grazyna Badillo PA-C Exercise Technologist: Jessica Garcia CT Exercise Physician: Rajiv Corona MD Exam Type: CA stress pablo w NM Study Info A regadenoson stress test was performed. Summary 1. 1. Negative lexiscan stress test for ischemic ST changes by ECG criteria. 2. 2. Baseline hypertension. 3. 3. Nuclear scan to follow and will be reported separately. Please correlate with it. 4. 4. Patient informed of the above results. Protocol: Lexiscan Stress ECG Details Stage: REST Duration (min): 1 min : 1 sec HR (bpm): 63 SBP (mmHg): 152 DBP (mmHg): 64 Stage: REST Duration (min): 15 min : 7 sec HR (bpm): 63 SBP (mmHg): 152 DBP (mmHg): 64 Stage: STAGE 1 Duration (min): 1 min : 0 sec HR (bpm): 74 SBP (mmHg): 148 DBP (mmHg): 57 Stage: RECOVERY Duration (min): 1 min : 0 sec HR (bpm): 52 SBP (mmHg): 148 DBP (mmHg): 57 Stage: RECOVERY Duration (min): 1 min : 55 sec HR (bpm): 48 SBP (mmHg): 145 DBP (mmHg): 52 Rest HR: 63 bpm Peak HR: 77 bpm Rest Sys BP: 152 mmHg Peak Sys BP: 148 mmHg Max Pred HR: 153 bpm % Max Pred HR: 50 % Target HR: 130 bpm Max RPP: 11,396 bpm*mmHg Termination Reason: Completed protocol Cardiac Symptoms: None Total Time: 1 min : 0 sec Rest Munoz BP: 64 mmHg Peak Munoz BP: 57 mmHg Total Dose: 0.4 mg Resting ECG Sinus rhythm, IRBBB. Stress ECG No ST changes. Arrhythmias None. Report Signatures
[2021-01-17] MEDS: LORazepam (*CRX) 1 MG TABLET PO ×2 (09:01→17:53)
[2021-01-17] MEDS: PHENobarbitaL (*CRX) 30 MG TABLET 60 MG PO (09:01)
[2021-01-17 12:42] LABS: Glucose Point of Care 117 mg/dl (65-105)
[2021-01-17 13:30] LABS: Anion Gap 8 mmol/L (8-16); Blood Urea Nitrogen 11 mg/dL (7-17); Carbon Dioxide 25 mmol/L (22-30); Chloride 103 mmol/L (98-107); Estimated CRCL calculation 82 ml/min; Estimated Glomerular Filt Rate > 60; Glucose 122 mg/dL (65-110); Potassium 4.8 mmol/L (3.4-5.0); Sodium 136 mmol/L (137-145)
--- NOTE | 2021-01-17 15:39 | PM.DS ---
DS: Admitting Diagnosis Discharge Date 01/17/21 Admitting Diagnosis bradycardia DS: Discharge Diagnosis Discharge Diagnosis (1) Elevated troponin: Code(s): R77.8 - Other specified abnormalities of plasma proteins Status: Acute Assessment and Plan: Patient has had an elevated troponin which has actually improved -no wall motion abnormalities on the echo or chest pain -she continues to have bradycardia -Lexiscan showed no ischemia -follow-up with cardiology outpatient as needed (2) Fall: Qualifiers: Encounter type: initial encounter Qualified Code(s): W19.XXXA - Unspecified fall, initial encounter Code(s): W19.XXXA - Unspecified fall, initial encounter Status: Acute Assessment and Plan: Appears to be a mechanical fall -she she did well with OT (3) HTN (hypertension): Code(s): I10 - Essential (primary) hypertension Status: Acute Assessment and Plan: Last blood pressure 150/56 -continue amlodipine and hydralazine (4) Hypothyroidism (acquired): Code(s): E03.9 - Hypothyroidism, unspecified Status: Acute Assessment and Plan: T4 normal -continue levothyroxine (5) Sinus bradycardia: Code(s): R00.1 - Bradycardia, unspecified Status: Acute Assessment and Plan: As above DS: Summary Hospital Course Hospital Course: Patient is a 65-year-old female who presented outside area hospital for a fall with some lightheadedness and dizziness. Vitals in the ER were temperature 36.6? C, pulse 94, respiratory rate 20, blood pressure 169/55, pulse ox 94 on room air. Troponin slightly elevated. EKG showed sinus bradycardia and patient was transferred to this facility. The patient continued to have bradycardia throughout her stay intermittently but no chest pain, palpitations or signs of heart failure. Cardiology was consulted and she underwent a Lexiscan which was negative for signs of ischemia. Patient had no further dizziness and absolutely no chest pain. The fall was thought to be mechanical and she did well with occupational therapy. The day of discharge patient was feeling well and ready to go. She had absolutely no dysuria, pain to palpation to the abdomen, frequency, or odor. She has no symptoms of a UTI and I do not think her UA represents an active infection. She is to follow up with her primary care physician if she does develop these symptoms. She has no lightheadedness or dizziness today. She is going to follow up with her primary care physician to recheck her calcium. Time Spent with Patient Time attestation: Total time spent providing and/or coordinating discharge services: 38 minutes Exam Narrative: General: Well developed well nourished patient in NAD HEENT: normocephalic, scabs to the nose and parts of the face Neck: supple Neuro: Alert and oriented x4 CV: Bradycardic on exam. Telemetry shows sinus bradycardia Resp: Faint crackles at the bases. No wheezing or rhonchi. No conversational dyspnea Abd: Soft, non distended. No pain to palpation. Positive bowel sounds Extremities: No swelling, erythema, or pain to palpation. DS: Data Data Completed and Pending Labs on day of discharge: Labs from last 24 hours 01/17/21 01/17/21 01/17/21 13:03 12:25 07:38 Hgb Hct Sodium 136 L Potassium 4.8 Chloride 103 Carbon Dioxide 25 Anion Gap 8 BUN 11 Creatinine 0.50 L Estim Creat Clear Calc 82 Estimated GFR > 60 Glucose 122 H POC Capillary Glucose 117 H 97 Calcium 11.0 H Free T4 01/17/21 01/16/21 01/16/21 04:53 19:58 19:57 Hgb 12.6 Hct 39.6 Sodium Potassium Chloride Carbon Dioxide Anion Gap BUN Creatinine Estim Creat Clear Calc Estimated GFR Glucose POC Capillary Glucose 129 H Calcium Free T4 0.99 01/16/21 16:51 Hgb Hct Sodium Potassium Chloride Carbon Di
== END 2021-01-17 18:40 | disposition home or self-care (01) ==
PROVIDERS: Physician Assistant; Admitting Provider Internal Medicine; PCP Internal Medicine; Visit Provider Internal Medicine
DX: R42 Dizziness and giddiness (principal); R77.8 Other specified abnormalities of plasma proteins; W19.XXXA Unspecified fall, initial encounter; G40.909 Epilepsy, unspecified, not intractable, without status epilepticus; I10 Essential (primary) hypertension; E78.5 Hyperlipidemia, unspecified; R06.02 Shortness of breath; J44.9 Chronic obstructive pulmonary disease, unspecified; E11.9 Type 2 diabetes mellitus without complications; E03.9 Hypothyroidism, unspecified; Z87.891 Personal history of nicotine dependence
CPT/HCPCS: 36415; 78452; 80048; 82948; 84439; 84484; 85014; 85018; 93017; 93306; 97165; 97535; A9270; A9502; G0378; G0379; J2785

== ENCOUNTER 2021-03-06 07:52 | Outpatient (CLI) | payer OTHER, SELFPAY ==
[2021-03-06 08:04] LABS: Basophils Absolute Auto 0.08 K/mm3 (0.00-0.10); Basophils Percent Auto 1.4 % (0.0-1.0); Eosinophils Absolute Auto 0.11 K/mm3 (0.02-0.50); Eosinophils Percent Auto 1.9 % (1.0-6.0); Hematocrit 39.1 % (35.0-42.0); Hemoglobin 12.3 g/dL (11.7-13.8); Immature Granulocyte Absolute 0.03 K/mm3 (0.00-0.00); Immature Granulocyte Percent A 0.5 % (0.0-0.0); Lymphocytes Absolute Auto 1.25 K/mm3 (1.10-4.50); Lymphocytes Percent Auto 21.6 % (18.0-42.0); Mean Corpuscular HGB Conc 31.5 g/dL (32.0-36.0); Mean Corpuscular Hemoglobin 28.3 pg (27.0-31.0); Mean Corpuscular Volume 90.1 fL (78.0-102.0); Mean Platelet Volume 9.1 fl (9.2-11.8); Monocytes Absolute Auto 0.75 K/mm3 (0.10-0.90); Monocytes Percent Auto 12.9 % (2.0-11.0); Neutrophils Absolute Auto 3.6 K/mm3 (1.7-7.2); Neutrophils Percent Auto 61.7 % (50.0-70.0); Platelet Count Result 307 K/mm3 (150-420); Red Blood Count 4.34 M/mm3 (4.20-5.40); White Blood Count 5.8 K/mm3 (4.8-10.8)
[2021-03-06 08:42] LABS: Alanine Aminotransferase 36 U/L (14-59); Albumin Level 3.4 g/dL (3.4-5.0); Alkaline Phosphatase 152 U/L (46-116); Anion Gap 9 mmol/L (8-16); Aspartate Amino Transferase 20 U/L (15-37); Bilirubin,Total 0.4 mg/dL (0.00-1.00); Blood Urea Nitrogen 10 mg/dL (7-18); Calcium 10.3 mg/dL (8.5-10.1); Carbon Dioxide 25 mmol/L (21-32); Chloride 97 mmol/L (98-108); Estimated Glomerular Filt Rate > 60; Glucose 100 mg/dL (70-99); Osmolality Calculated 271 mOsm/kg (285-295); Potassium 4.7 mmol/L (3.5-5.1); Sodium 131 mmol/L (136-145); Total Protein 7.7 g/dL (6.4-8.2)
== END 2021-03-06 07:53 | disposition home or self-care (01) ==
LOC: CHSLAB 07:54
PROVIDERS: PCP Internal Medicine; Visit Provider Internal Medicine
DX: D64.9 Anemia, unspecified (principal); E87.1 Hypo-osmolality and hyponatremia
CPT/HCPCS: 36415; 80053; 85025

== ENCOUNTER 2021-04-07 18:58 | Emergency (ER) | payer OTHER, SELFPAY ==
--- NOTE | ~2021-04-07 | CT_ITS ---
EXAMINATION: CT brain wo [facility] EXAM DATE: 04/07/2021 19:24 INDICATION: Fall, right sided head injury. TECHNIQUE: Spiral CT of the head was performed without contrast. Axial, coronal and sagittal images were reviewed. The dose-length product (DLP) for this examination was 605.33 mGy-cm. The exposure w as tailored according to patient size, and iterative reconstruction (ASIR) was used as additional dos e reduction technique. Comparison is made to prior examination from 01/15/2021. FINDINGS: There is no acute intraparenchymal hemorrhage. No evidence of intraparenchymal brain mass lesion. No evidence of acute infarction. Please note that initial head CT has limited sensitivity f or small or acute infarctions. There is moderate periventricular and subcortical hypodensity, nonspec ific but probably related to small vessel ischemic disease. There is moderate prominence of the sul ci and ventricles related to cerebral atrophy. 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 There is intracranial carotid arteriosclerosis. There are no extra-axial collections. There is no m ass effect or midline shift. The orbits are unremarkable. There is right supraorbital swelling. The visualized sinuses and mastoid air cells are well aerated. IMPRESSION: 1. No acute intracranial findings. 2. Chronic age related findings. 3. Right supraorbital scalp swelling. Reviewed, dictated and finalized at location A. INERY ENGINEER
[2021-04-07 19:00] VITALS: BP 154/82; PULSE 66; RESP 18; TEMP 36.2; O2SAT 95
--- NOTE | 2021-04-07 19:04 | ED.FALL ---
HPI - Fall General Chief Complaint: Head Injury Stated Complaint: Fall Time Seen by Provider: 04/07/21 19:04 Source: patient, EMS and RN notes reviewed Mode of arrival: EMS Limitations: no limitations History of Present Illness MD complaint: fall Onset (ago): minute(s) (30) Fall from: other ( Kneeling cleaning her shower. Was leaning forward slipped and hit her head on the shower drain) Fall witnessed: no Place fall occurred: home Loss of consciousness: none Prolonged down time: no Symptoms prior to fall: none Context: tripped/slipped Location of injury: face ( above right eyebrow) Related Data Home Medications Medication Instructions Recorded Confirmed Antiseptic Sore Throat Lozenge 2 spray PO Q8-10H 04/07/21 04/07/21 Mylanta 30 ml PO Q4-5H 04/07/21 04/07/21 Robafen 100 mg PO PRN 04/07/21 04/07/21 Stomach Relief 30 ml PO Q30-60M 04/07/21 04/07/21 acetaminophen 325 mg PO PRN PRN 04/07/21 04/07/21 albuterol sulfate 90 mcg PO Q4-6H 04/07/21 04/07/21 alendronate 70 mg PO WEEKLY 04/07/21 04/07/21 amlodipine 10 mg PO DAILY 04/07/21 04/07/21 carbamazepine 100 mg PO TID 04/07/21 04/07/21 carbamazepine 200 mg PO TID 04/07/21 04/07/21 clotrimazole 1 applic TOPICAL TID 04/07/21 04/07/21 docusate sodium 100 mg PO DAILY PRN 04/07/21 04/07/21 ergocalciferol (vitamin D2) 50,000 unit PO WEEKLY 04/07/21 04/07/21 famotidine 20 mg PO DAILY 04/07/21 04/07/21 hydralazine 50 mg PO Q12-24H 04/07/21 04/07/21 ibuprofen 600 mg PO PRN 04/07/21 04/07/21 levothyroxine 112 mcg PO DAILY 04/07/21 04/07/21 loratadine 10 mg PO DAILY 04/07/21 04/07/21 lorazepam 1 mg PO BID 04/07/21 04/07/21 lovastatin 10 mg PO DAILY 04/07/21 04/07/21 meclizine 12.5 mg PO Q6-12H 04/07/21 04/07/21 nystatin 1 applic TOPICAL BID 04/07/21 04/07/21 nystatin [Nystop] 1 applic TOPICAL BID 04/07/21 04/07/21 phenobarbital 68.4 mg PO DAILY 04/07/21 04/07/21 phenytoin 50 mg PO HS 04/07/21 04/07/21 phenytoin sodium extended 100 mg PO TID 04/07/21 04/07/21 quetiapine 100 mg PO HS 04/07/21 sertraline 50 mg PO DAILY 04/07/21 04/07/21 sertraline 100 mg PO DAILY 04/07/21 04/07/21 Allergies Allergy/AdvReac Type Severity Reaction Status Date / Time Penicillins Allergy Unknown Rash Verified 04/07/21 19:07 Review of Systems Review of Systems: All systems reviewed & are unremarkable except as noted in HPI and below PMFSH Past Medical History Medical History Adnexal mass Family History Family History Father Family history of hypercholesterolemia Grandparent Cerebrovascular accident Social History Social History Smoking status: Former smoker Smoking end date: 04/27/16 Alcohol intake: never Exam Const: General: healthy appearing, no acute distress and alert Nutritional Appearance: well nourished and obese centrally obese Orientation/consciousness: patient oriented x3 HENMT: Head: hematoma (Small Right eyebrow mild tenderness) Ears: external ears normal General nose exam: Normal external nose present Mouth: Yes moist mucous membranes Eyes: Conjunctivae: conjunctivae normal Pupils: Equal, round and reactive pupils present EOM: EOMs intact bilaterally Neck: Neck: normal visual inspection Resp: Effort & Inspection: normal respiratory effort Auscultation: clear to auscultation bilaterally Cardio: Rate: regular rate Rhythm: regular rhythm GI: GI Palp: Yes Soft to palpation and No Tenderness to palpation present (GI) Auscultation: normal bowel sounds Back/Spine/Pelvis: Cervical Spine: cervical ROM normal Thoracic/Lumbar Spine: thoraco-lumbar ROM normal Skin: General skin exam: normal color Neuro: General: patient oriented x3, moves all extremities, no focal motor deficits and CN's II-XI intact bilaterally Speech: normal speech Gait exam (Neuro): Normal gait present Extrem: General: normal to inspec
--- NOTE | 2021-04-07 19:54 | PC.NURSE ---
Pt reports feeling ok, ice pack in place, call placed to [facility] for pt d/c back to their care. Will await staff arrival to take pt back to [facility].
[2021-04-07 19:57] VITALS: BP 150/64; PULSE 68; RESP 18; TEMP 36.6; O2SAT 96
== END 2021-04-07 20:24 | disposition home or self-care (01) ==
PROVIDERS: Emergency Provider Emergency Medicine; PCP Internal Medicine
DX: S00.83XA Contusion of other part of head, initial encounter (principal)
CPT/HCPCS: 70450; 99282; 99284

== ENCOUNTER 2021-04-09 08:46 | Outpatient (CLI) | payer OTHER, SELFPAY ==
--- NOTE | ~2021-04-09 | MR_ITS ---
EXAMINATION: MR brain IAC wo/w con DATE: 04/09/2021 10:29 INDICATION: Seizure disorder. TECHNIQUE: Magnetic resonance imaging (MRI) of the brain, brainstem, and internal auditory canals was performed without intravenous contrast. Sequences included sagittal and axial T1-weighted FSE, axial diffusion-weighted FS EPI, axial T2*-weighted GRE, axial T2-weighted FLAIR Propeller, coronal FLAIR, and axial T2-weighted Propeller. Apparent diffusion coefficient (ADC) maps were created. COMPARISON: Head CT 04/07/2021 FINDINGS: There are scattered areas of nonspecific increased T2-weighted signal intensity in the cere bral white matter. There is chronic encephalomalacia in right frontal lobe. There is no intracranial hemorrhage, acute infarction, or abnormal intracranial mass lesion. The ventricles are normal in size . Cavum septum pellucidum and vergae are noted. There is mild mucosal thickening in the paranasal sin uses. The orbits are normal. The mastoid air cells are normal. IMPRESSION: 1. 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 2. Moderate nonspecific cerebral white matter disease, which likely represents chronic small vessel i schemic disease. Reviewed, dictated and finalized at location A. RVISING BROKER IMPRESSION: 1. 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 2. Moderate nonspecific cerebral white matter disease, which likely represents chronic small vessel ischemic disease.
[2021-04-09 09:27] LABS: Estimated Glomerular Filt Rate > 60
== END 2021-04-09 08:47 | disposition home or self-care (01) ==
LOC: CHSIMG 08:50
PROVIDERS: PCP Internal Medicine; Visit Provider Internal Medicine
DX: R56.9 Unspecified convulsions (principal)
CPT/HCPCS: 70553

== ENCOUNTER 2021-04-13 09:02 | Outpatient (CLI) | payer OTHER, SELFPAY ==
[2021-04-13 10:47] LABS: Phenytoin Dilantin 36 ug/mL (10-20)
== END 2021-04-13 09:03 | disposition home or self-care (01) ==
LOC: CHSLAB 09:08
PROVIDERS: PCP Internal Medicine
DX: T42.0X5A Adverse effect of hydantoin derivatives, initial encounter (principal)
CPT/HCPCS: 36415; 80185

== ENCOUNTER 2021-04-14 09:36 | Outpatient (CLI) | payer OTHER, SELFPAY ==
[2021-04-14 11:35] LABS: Phenytoin Dilantin 29 ug/mL (10-20)
== END 2021-04-14 09:37 | disposition home or self-care (01) ==
LOC: CHSLAB 09:43
PROVIDERS: PCP Internal Medicine
DX: T42.0X5A Adverse effect of hydantoin derivatives, initial encounter (principal)
CPT/HCPCS: 36415; 80185

== ENCOUNTER 2021-04-15 11:06 | Outpatient (CLI) | payer OTHER, SELFPAY ==
[2021-04-15 13:07] LABS: Phenytoin Dilantin 29 ug/mL (10-20)
== END 2021-04-15 11:07 | disposition home or self-care (01) ==
LOC: CHSLAB 11:12
PROVIDERS: PCP Internal Medicine
DX: T42.0X5A Adverse effect of hydantoin derivatives, initial encounter (principal)
CPT/HCPCS: 36415; 80185

== ENCOUNTER 2021-04-18 08:28 | Outpatient (CLI) | payer OTHER, SELFPAY ==
[2021-04-18 08:58] LABS: Phenytoin Dilantin 15 ug/mL (10-20)
== END 2021-04-18 08:29 | disposition home or self-care (01) ==
PROVIDERS: PCP Internal Medicine
DX: T42.0X5A Adverse effect of hydantoin derivatives, initial encounter (principal)
CPT/HCPCS: 36415; 80185

== ENCOUNTER 2022-02-04 07:53 | Outpatient (CLI) | payer OTHER, SELFPAY ==
--- NOTE | ~2022-02-04 | DEXA_ITS ---
Bone Density Report Name: TALI GOMEZ Age: 66 Sex: Female Ethnicity: White Date of : 1955 Indication: postmenopausal; screening for osteoporosis; prior fracture; seizure disorder; rheumatoid arthritis; Referring Provider: Carroll Almazan Study: Bone densitometry was performed. Exam Date: February 04, 2022 Accession number: [id number] Bone Density: Region BMD T-score Z-score Classification AP Spine(L1, L2, L4) 0.801 -2.1 -0.1 Osteopenia Femoral Neck (Left) 0.614 -2.1 -0.4 Osteopenia Total Hip (Left) 0.732 -1.7 -0.3 Osteopenia Femoral Neck (Right) 0.610 -2.2 -0.4 Osteopenia Total Hip (Right) 0.719 -1.8 -0.4 Osteopenia Femoral Neck Mean 0.612 -2.1 -0.4 Osteopenia Total Hip Mean 0.726 -1.8 -0.3 Osteopenia World Health Organization criteria for BMD impression classify patients as: Normal (T-score at or above -1.0), Osteopenia (T-score between -1.0 and -2.5), or Osteoporosis (T-score at or below -2.5). 10-year Fracture Risk(1): Major Osteoporotic Fracture 23% Hip Fracture 4.7% Reported Risk Factors: [place] (), Neck BMD=0.610, BMI=35.2, previous fracture, rheumatoid arthritis (1) FRAX(R) Version 3.08. Fracture probability calculated for an untreated patient. Fracture probability may be lower if the patient has received treatment. Clinical Information Provided by Patient: Has had a low trauma fracture Has rheumatoid arthritis Has the following medical conditions: Any Seizure Disorders Patient maximum height was 60 Menopause Age: 48 No regular weight bearing exercise Drinks caffeinated beverages Onset of menses at age 10 Number of children 1 Impression: The patient has low bone mass, based on the Right Femoral Neck T-score. The patient has risk factors, including: previous fracture. Discussion: BONE DENSITY IS LOW AT ONE OR MORE SKELETAL SITES. This patient's lowest T-score is low at one or more skeletal sites. It meets the World Health Organization's (WHO) criteria for ?low bone mass? (T-score between -1.0 and -2.5). The patient's 10-year risk of fracture as calculated by FRAX is less than the threshold where pharmacological therapy is recommended by the National Osteoporosis Foundation (NOF). However, all treatment decisions require clinical judgment and consideration of individual patient factors, including patient preferences, comorbidities, previous drug use, risk factors not captured in the FRAX model (e.g., frailty, falls, vitamin D deficiency, increased bone turnover, interval significant decline in bone density) and possible under or overestimation of fracture risk by FRAX. The patient should follow a healthful lifestyle (good nutrition with adequate calcium and vitamin D, and appropriate weight-bearing exercise). Follow-Up: Consider repeati
--- NOTE | ~2022-02-04 | MM_ITS ---
EXAMINATION: MM screening antonio BI w eli HISTORY: Screening TECHNIQUE: Craniocaudal and mediolateral oblique 3-D tomosynthesis images were obtained and synthetic 2-D images were generated. CAD analysis was submitted and interpreted. COMPARISON: Comparison to multiple prior studies sequentially, with oldest reviewed study dated 08/18. BREAST PARENCHYMAL COMPOSITION: There are scattered areas of fibroglandular density. FINDINGS: There is no evidence of suspicious mass, calcification, or architectural distortion to sugg est malignancy in either breast. There has been no suspicious interval change. IMPRESSION: 1. No mammographic evidence of malignancy. 2. Recommend routine screening mammography in one year. BI-RADS Category 1: Negative Reviewed, dictated and finalized at location A.
== END 2022-02-04 07:54 | disposition home or self-care (01) ==
LOC: CHSIMG 07:55
PROVIDERS: PCP Internal Medicine; Visit Provider Internal Medicine
DX: M81.0 Age-related osteoporosis without current pathological fracture (principal); Z12.31 Encounter for screening mammogram for malignant neoplasm of breast
CPT/HCPCS: 77063; 77067; 77080

== ENCOUNTER 2022-03-18 19:17 | Emergency (ER) | payer OTHER, SELFPAY ==
--- NOTE | ~2022-03-18 | CT_ITS ---
EXAMINATION: CT brain wo con DATE: 03/18/2022 19:37 INDICATION: trauma/POSTERIOR HEAD PAIN . TECHNIQUE: Computed tomography (CT) of the head was performed without intravenous contrast. The mA wa s adjusted according to patient size. Iterative reconstruction technique was employed. The dose-lengt h product was 605.33 mGy-cm. COMPARISON: 04/07/2021 FINDINGS: No acute intracranial hemorrhage or extra-axial fluid collection. No hydrocephalus, mass, or herniation. No acute ischemic infarct. Unremarkable dural venous sinus attenuation. No acute osseous abnormality. Small left posterior scalp contusion Bilateral inferior maxillary sinus mucosal thickening, the remaining aerated spaces are clear. Moderate atrophy, particularly of the cerebellum. Moderate chronic white matter change. Atherosclerot ic intracranial calcification. Cavum septum pellucidum and cavum vergae. IMPRESSION: No acute intracranial process. Reviewed, dictated and finalized at [facility] K. OMS AGENT
[2022-03-18 19:20] VITALS: BP 168/55; PULSE 65; RESP 14; TEMP 36.7; O2SAT 96
--- NOTE | 2022-03-18 19:24 | ED.FALL ---
HPI - Fall General Chief Complaint: Head Injury Stated Complaint: ambulance History of Present Illness HPI Narrative: Pt slipped on wet towel in bathroom after shower and fell backward striking the back of her head and her left shoulder on the ground. Pt denies LOC. Pt has pain back of head. Pt denies left shoulder pain. Pt denies LEE or neck pain. Related Data Home Medications Medication Instructions Recorded Confirmed acetaminophen 325 mg tablet 650 mg PO Q4H PRN Pain 09/06/20 03/18/22 albuterol sulfate 90 mcg/actuation 90 mcg inhalation Q4-6H PRN 09/06/20 03/18/22 aerosol inhaler Wheezing aluminum-magnesium hydroxide 500 30 ml PO Q4H PRN Nausea 09/06/20 03/18/22 mg-500 mg/5 mL oral suspension amlodipine 10 mg tablet 10 mg PO DAILY 09/06/20 03/18/22 carbamazepine 100 mg chewable 100 mg PO TID 09/06/20 03/18/22 tablet clotrimazole 1 % topical cream 1 applic topical TID 09/06/20 03/18/22 ergocalciferol (vitamin D2) 1,250 50,000 unit PO DAILY 09/06/20 03/18/22 mcg (50,000 unit) capsule famotidine 20 mg tablet 20 mg PO DAILY 09/06/20 03/18/22 levothyroxine 112 mcg tablet 112 mcg PO DAILY 09/06/20 03/18/22 loratadine 10 mg tablet 10 mg PO DAILY 09/06/20 03/18/22 meclizine 12.5 mg tablet 12.5 mg PO TID PRN Dizziness 09/06/20 03/18/22 nystatin 100,000 unit/gram topical 1 applic topical BID 09/06/20 03/18/22 cream phenobarbital 64.8 mg tablet 64.8 mg PO DAILY 09/06/20 03/18/22 sertraline 100 mg tablet 100 mg PO DAILY 09/06/20 03/18/22 vitamin B complex (B 1 tablet PO DAILY 09/06/20 03/18/22 Complex-Vitamin B12 tablet) alendronate 70 mg tablet 70 mg PO WEEKLY 04/07/21 03/18/22 docusate sodium 100 mg PO DAILY PRN Constipation 04/07/21 03/18/22 hydralazine 50 mg tablet 50 mg PO Q12-24H 04/07/21 03/18/22 lorazepam 1 mg tablet 1 mg PO BID 04/07/21 03/18/22 lovastatin 10 mg tablet 10 mg PO DAILY 04/07/21 03/18/22 phenytoin 50 mg chewable tablet 50 mg PO HS 04/07/21 03/18/22 phenytoin sodium extended 100 mg 100 mg PO TID 04/07/21 03/18/22 capsule quetiapine 100 mg tablet 100 mg PO HS 04/07/21 03/18/22 sertraline 50 mg tablet 50 mg PO DAILY 04/07/21 03/18/22 Allergies Allergy/AdvReac Type Severity Reaction Status Date / Time aspirin Allergy Unknown Verified 03/18/22 19:24 Penicillins Allergy Unknown Verified 03/18/22 19:24 Review of Systems Review of Systems: All systems reviewed & are unremarkable except as noted in HPI and below PMFSH Past Medical History Medical History (Updated 03/18/22 @ 19:51 by Jaren Gonzalez III, DO) Adnexal mass Chronic constipation COPD (chronic obstructive pulmonary disease) Depression Diabetes mellitus Essential hypertension GERD (gastroesophageal reflux disease) Hyperlipidemia Hypothyroidism (acquired) Intellectual disability Due to head trauma at age 5 with 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 She is on disability. She used to smoke 1 pack of cigarettes per day for 33 years but quit smoking in 2007. She denies any history of alcohol or drug use. She has 1 daughter that was raised by her sister. The patient is not in contact with her daughter. Primary care physician: Dr. Almazan Code status: Full code Surrogate decision maker: None Smoking status: Former smoker Smoking end date: 04/27/16 Alcohol intake: never Substance use: never Substance use type: does not use Spiritual care concerns: No Exam Const: General: healthy appearing Nutritional Appearance: well nourished
== END 2022-03-18 19:55 | disposition home or self-care (01) ==
PROVIDERS: Emergency Provider Emergency Medicine
DX: S09.90XA Unspecified injury of head, initial encounter (principal); W01.0XXA Fall on same level from slipping, tripping and stumbling without subsequent striking against object, initial encounter; J44.9 Chronic obstructive pulmonary disease, unspecified; E11.9 Type 2 diabetes mellitus without complications; I10 Essential (primary) hypertension; K21.9 Gastro-esophageal reflux disease without esophagitis; E78.5 Hyperlipidemia, unspecified; E03.9 Hypothyroidism, unspecified; Z87.891 Personal history of nicotine dependence
CPT/HCPCS: 70450; 99284

== ENCOUNTER 2022-08-15 04:20 | Observation (INO) | payer OTHER, SELFPAY ==
[2022-08-15] VITALS (16 sets, daily range): BP systolic 158–188; BP diastolic 46–139; PULSE 63–94; RESP 10–28; TEMP 36.6–37.2; O2SAT 94–98
--- NOTE | ~2022-08-15 | CT_ITS ---
EXAMINATION: CT brain wo con DATE: 08/15/2022 05:58 INDICATION: Altered mental status TECHNIQUE: Computed tomography (CT) of the head was performed without intravenous contrast. The dose- length product was 2043.00 mGy-cm. Automated exposure control and iterative reconstruction technique were employed. COMPARISON: None FINDINGS: Normal brain parenchymal volume. There are scattered mild periventricular and subcortical w madelin matter changes, most likely related to small vessel ischemic disease (microangiopathy). Calcific ations in the regions of the choroid plexus right and left lateral ventricles, which appear chronic. No ventriculomegaly or midline shift. There is mild cerebellar atrophy. No acute intracranial hemorrh age, infarction, mass or mass effect. Mild mucosal thickening of the maxillary and ethmoid sinuses. M astoids are pneumatized. No depressed skull fractures. Midline sagittal images are unremarkable. IMPRESSION: 1. No acute intracranial abnormality. Reviewed, dictated and finalized at location A.
--- NOTE | 2022-08-15 04:51 | ECG_ITS ---
Measurements Intervals [place] Rate: 67 P: 72 MO: 143 QRS: 70 QRSD: 108 T: 46 QT: 392 QTc: 416 Interpretive Statements SINUS RHYTHM NORMAL ECG COMPARED TO ECG 01/15/2021 18:40:40 SINUS RHYTHM NOW PRESENT Electronically Signed On 08-18-2022 12:00:25 CDT by Nicolás Baptiste M.D.
--- NOTE | 2022-08-15 05:02 | ED.AMS ---
HPI - Altered Mental Status General Chief Complaint: Altered Mental Status Stated Complaint: altered mental status Time Seen by Provider: 08/15/22 04:37 Source: patient and EMS Mode of arrival: EMS Limitations: altered mental status History of Present Illness HPI narrative: this is a 67-year-old patient that arrived via EMS from [facility] with altered mental status, according to spouse this is above her baseline, patient does have baseline altered mental status with a history of seizure disorder depression history of hypertension and history of hypothyroidism diabetes and mental disability. No seizure activity was noted by staff or the spouse, has no fever chills no shortness of breath patient answers with 1 to 2 words does not appear to be in any pain or discomfort, no nausea or vomiting no abdominal pain elicited. MD complaint: altered mental status Onset (ago): day(s) Timing confirmed by: spouse Severity: similar to previous episodes Consistency of symptoms: constant Context: history of similar presentation and seizure disorder Associated symptoms: denies other symptoms Related Data Home Medications Medication Instructions Recorded Confirmed acetaminophen 325 mg tablet 650 mg PO Q4H PRN Pain 09/06/20 03/18/22 albuterol sulfate 90 mcg/actuation 90 mcg inhalation Q4-6H PRN 09/06/20 03/18/22 aerosol inhaler Wheezing aluminum-magnesium hydroxide 500 30 ml PO Q4H PRN Nausea 09/06/20 03/18/22 mg-500 mg/5 mL oral suspension amlodipine 10 mg tablet 10 mg PO DAILY 09/06/20 03/18/22 carbamazepine 100 mg chewable 100 mg PO TID 09/06/20 03/18/22 tablet clotrimazole 1 % topical cream 1 applic topical TID 09/06/20 03/18/22 ergocalciferol (vitamin D2) 1,250 50,000 unit PO DAILY 09/06/20 03/18/22 mcg (50,000 unit) capsule famotidine 20 mg tablet 20 mg PO DAILY 09/06/20 03/18/22 levothyroxine 112 mcg tablet 112 mcg PO DAILY 09/06/20 03/18/22 loratadine 10 mg tablet 10 mg PO DAILY 09/06/20 03/18/22 meclizine 12.5 mg tablet 12.5 mg PO TID PRN Dizziness 09/06/20 03/18/22 nystatin 100,000 unit/gram topical 1 applic topical BID 09/06/20 03/18/22 cream phenobarbital 64.8 mg tablet 64.8 mg PO DAILY 09/06/20 03/18/22 sertraline 100 mg tablet 100 mg PO DAILY 09/06/20 03/18/22 vitamin B complex (B 1 tablet PO DAILY 09/06/20 03/18/22 Complex-Vitamin B12 tablet) alendronate 70 mg tablet 70 mg PO WEEKLY 04/07/21 03/18/22 docusate sodium 100 mg PO DAILY PRN Constipation 04/07/21 03/18/22 hydralazine 50 mg tablet 50 mg PO Q12-24H 04/07/21 03/18/22 lovastatin 10 mg tablet 10 mg PO DAILY 04/07/21 03/18/22 phenytoin sodium extended 100 mg 100 mg PO TID 04/07/21 03/18/22 capsule aripiprazole 5 mg tablet 5 mg PO HS 08/15/22 08/15/22 Allergies Allergy/AdvReac Type Severity Reaction Status Date / Time aspirin Allergy Unknown Verified 03/18/22 19:24 Penicillins Allergy Unknown Verified 03/18/22 19:24 Review of Systems Review of Systems: All systems reviewed & are unremarkable except as noted in HPI and below PMFSH Past Medical History Medical History Adnexal mass Chronic constipation COPD (chronic obstructive pulmonary disease) Depression Diabetes mellitus Essential hypertension GERD (gastroesophageal reflux disease) Hyperlipidemia Hypothyroidism (acquired) Intellectual disability 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ent Other Unknown family medical history Social History Social History (Reviewed 08/15/22 @ 05:07 by Shawn Maldonado
[2022-08-15 05:29] LABS: Appearance Urine Clear (Clear); Bilirubin Urine Negative (Negative); Blood Urine Negative (Negative); Color Urine Yellow (Yellow); Glucose Urine UA Negative (Negative); Ketones Urine Trace (Negative); Leukocyte Esterase Ur Negative LEU/UL (Negative); Nitrate Urine Negative (Negative); Protein Urine Negative (Negative); Specific Grav Ur 1.015 (1.010-1.020); Urobilinogen Urine 0.2 mg/dL (0.2-1.0); pH Urine 7.5 (5.0-8.0)
[2022-08-15 05:35] LABS: Add Urine Microscopic? YES; Bacteria Urine None seen /hpf; RBC Urine 0-2 /hpf (0-2); Squamous Epithelial Cell Urine None seen /hpf (Few); WBC Urine 0-3 /hpf (0-3)
[2022-08-15 05:43] LABS: Basophils Absolute Auto 0.06 K/mm3 (0.00-0.10); Basophils Percent Auto 0.8 % (0.0-1.0); Eosinophils Absolute Auto 0.13 K/mm3 (0.02-0.50); Eosinophils Percent Auto 1.7 % (1.0-6.0); Hematocrit 37.5 % (35.0-42.0); Hemoglobin 12.3 g/dL (11.7-13.8); Immature Granulocyte Absolute 0.05 K/mm3 (0.00-0.00); Immature Granulocyte Percent A 0.7 % (0.0-0.0); Lymphocytes Absolute Auto 0.62 K/mm3 (1.10-4.50); Lymphocytes Percent Auto 8.2 % (18.0-42.0); Mean Corpuscular HGB Conc 32.8 g/dL (32.0-36.0); Mean Corpuscular Hemoglobin 29.1 pg (27.0-31.0); Mean Corpuscular Volume 88.9 fL (78.0-102.0); Mean Platelet Volume 9.6 fl (9.2-11.8); Monocytes Absolute Auto 0.75 K/mm3 (0.10-0.90); Neutrophils Absolute Auto 5.9 K/mm3 (1.7-7.2); Neutrophils Percent Auto 78.6 % (50.0-70.0); Platelet Count Result 277 K/mm3 (150-420); Red Blood Count 4.22 M/mm3 (4.20-5.40); White Blood Count 7.5 K/mm3 (4.8-10.8)
[2022-08-15 06:00] LABS: INR 0.9; Partial Thromboplastin Time 23.5 SEC (23.90-30.70); Prothrombin Time 10.3 Seconds (9.50-12.10)
[2022-08-15] MEDS: SODIUM CHLORIDE 0.9% IV 500 ML 999 ML IV CONT (06:02)
[2022-08-15 06:09] LABS: Lactic Acid Reflex 1.2 mmol/L (0.4-2.0)
[2022-08-15 06:10] LABS: Alanine Aminotransferase 20 U/L (14-59); Albumin Level 3.2 g/dL (3.4-5.0); Alkaline Phosphatase 83 U/L (46-116); Anion Gap 8 mmol/L (8-16); Aspartate Amino Transferase 31 U/L (15-37); Bilirubin,Total 0.7 mg/dL (0.00-1.00); Blood Urea Nitrogen 6 mg/dL (7-18); CRP 4.3 mg/dL (0.0-0.9); Calcium 9.5 mg/dL (8.5-10.1); Carbon Dioxide 24 mmol/L (21-32); Chloride 96 mmol/L (98-108); Estimated CRCL calculation 108 ml/min; Estimated Glomerular Filt Rate > 60; Glucose 119 mg/dL (70-99); NT Pro B Type Natriuretic Pept 271 pg/mL (0-125); Osmolality Calculated 264 mOsm/kg (285-295); Potassium 4.5 mmol/L (3.5-5.1); Sodium 128 mmol/L (136-145); Thyroid Stimulating Hormone 0.07 uIU/mL (0.36-3.74); Total Protein 7.4 g/dL (6.4-8.2)
--- NOTE | 2022-08-15 06:32 | PC.NURSE ---
Late entry - pt straight catheterized for urine and urine sent to lab.
--- NOTE | 2022-08-15 07:06 | PC.NURSE ---
pt to be admitted to room 226 as observation
[2022-08-15 10:24] LABS: Anion Gap 12 mmol/L (8-16); Blood Urea Nitrogen 5 mg/dL (7-18); Calcium 9.6 mg/dL (8.5-10.1); Carbon Dioxide 21 mmol/L (21-32); Chloride 98 mmol/L (98-108); Estimated CRCL calculation 102 ml/min; Estimated Glomerular Filt Rate > 60; Glucose 124 mg/dL (70-99); Osmolality Calculated 270 mOsm/kg (285-295); Potassium 4.1 mmol/L (3.5-5.1); Sodium 131 mmol/L (136-145)
--- NOTE | 2022-08-15 11:51 | PHAR ---
verified pt.s home medication phenobarbital 64.8mg tablet, 1 by mouth every morning. tls
[2022-08-15 12:14] LABS: Glucose Point of Care 108 mg/dl (65-105)
[2022-08-15] MEDS: carBAMazepine 200 MG TABLET 300 MG PO ×2 (16:38→20:05)
[2022-08-15] MEDS: PHENYTOIN SODIUM 100 MG EXTENDED RELEASE CAP PO (16:38)
[2022-08-15 16:43] LABS: Glucose Point of Care 119 mg/dl (65-105)
--- NOTE | 2022-08-15 18:12 | PC.NURSE ---
pt is becoming anxious, states i dont know why they left me here , tray removed, alarms on
[2022-08-15] MEDS: traZODone HCL 50 MG TABLET PO (20:05)
[2022-08-15] MEDS: ARIPiprazole 5 MG TABLET PO (20:05)
[2022-08-15] MEDS: hydrALAZINE HCL 25 MG TABLET 50 MG PO (20:05)
[2022-08-15] MEDS: MICONAZOLE NITRATE 2% CREAM 30 GM TUBE 1 APPLIC TOPICAL (20:57)
[2022-08-16] VITALS: BP 153/54; PULSE 69; RESP 16; TEMP 36.3; O2SAT 95
--- NOTE | 2022-08-16 00:59 | PC.NURSE ---
patient has attempted mulitple times to crawl out of bed. she states that she needs to urinate just a few minutes after she has been taken to the commode and urinated. Patient forgets that she has been to the commode. continues to push on the call light for needing multiple items. MD notified and new order for ativan given. patient continues to be monitored by camera in the room.
[2022-08-16] MEDS: LORazepam (*CRX) 0.5 MG TABLET PO (01:13)
--- NOTE | 2022-08-16 01:39 | PC.NURSE ---
16 F thomas catheter placed per sterile technique. patient tolerated well. immediate return or 600ml of clear yellow urine. explained technique and the thomas to the patient prior to placing. patient is more alert at this time. she is alert to place and why she is here. Ativan given to help patient relax and sleep. she is aware of the medication given. patient is in bed resting at this time. statlock placed on inner left thigh to keep catheter stabe.
[2022-08-16] MEDS: carBAMazepine 200 MG TABLET 300 MG PO (06:41)
[2022-08-16] MEDS: LEVOTHYROXINE SODIUM 112 MCG TABLET 224 MCG PO (06:42)
[2022-08-16] MEDS: ALENDRONATE SODIUM 70 MG TABLET PO (06:42)
[2022-08-16 07:53] LABS: Glucose Point of Care 97 mg/dl (65-105)
[2022-08-16 08:00] VITALS: BP 138/67; PULSE 58; RESP 14; TEMP 36.6; O2SAT 95
[2022-08-16] MEDS: amLODIPine BESYLATE 5 MG TABLET 10 MG PO (09:00)
[2022-08-16] MEDS: PHENYTOIN SODIUM 100 MG EXTENDED RELEASE CAP PO (09:00)
[2022-08-16] MEDS: SERTRALINE HCL 50 MG TABLET 100 MG PO (09:00)
[2022-08-16] MEDS: LORATADINE 10 MG TABLET PO (09:00)
[2022-08-16] MEDS: VITAMIN B COMPLEX CAPSULE 1 CAP PO (09:00)
[2022-08-16] MEDS: hydrALAZINE HCL 25 MG TABLET 50 MG PO (09:01)
[2022-08-16] MEDS: ENOXAPARIN 40 MG/0.4 ML SYRINGE SUB-Q (09:01)
[2022-08-16] MEDS: FAMOTIDINE 20 MG TABLET PO (09:01)
--- NOTE | 2022-08-16 09:31 | PM.SD2 ---
Same Day Admit/Disch: HPI History of Present Illness Chief complaint: altered mental status HYPONATREMIA Narrative: Lisa Cloon is a 67 year old that presented to emergency department for altered mental status. patient's baseline mental status is altered according to her it has worsened. Patient has a past medical history of COPD, depression, diabetes hypertension, GERD hyperlipidemia, intellectual disability, seizures, vertigo, vitamin-D deficiency andadnexal mass. patient's CT of the brain patient's sodium 128 TSH 0.07 labs within patient received fluids her sodium level is near normal. Patient is alert and orientated x3. She is anxious to go home .The patient denies SOB, CP, palpitation, extremity numbness, lightheadedness, dizziness, constipation, diarrhea, chills, or fever. 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 She is on disability. She used to smoke 1 pack of cigarettes per day for 33 years but quit smoking in 2007. She denies any history of alcohol or drug use. She has 1 daughter that was raised by her sister. The patient is not in contact with her daughter. Primary care physician: Dr. Almazan Code status: Full code Surrogate decision maker: None Smoking status: Unknown if ever smoked Second hand tobacco smoke exposure: Yes Smoking end date: 04/27/16 Alcohol intake: unknown Substance use: unknown Substance use type: does not use Spiritual care concerns: No Same Day Admit/Disch: Med Pre-admit Medications Home Medications Medication Instructions Recorded Confirmed Type acetaminophen 325 mg tablet 650 mg PO Q4H PRN Pain 09/06/20 08/15/22 History albuterol sulfate 90 mcg/actuation 2 puff inhalation Q4-6H PRN 09/06/20 08/15/22 History aerosol inhaler Wheezing aluminum-magnesium hydroxide 500 30 ml PO Q4H PRN Nausea 09/06/20 08/15/22 History mg-500 mg/5 mL oral suspension amlodipine 10 mg tablet 10 mg PO DAILY 09/06/20 08/15/22 History carbamazepine 100 mg chewable 300 mg PO TID 09/06/20 08/15/22 History tablet ergocalciferol (vitamin D2) 1,250 50,000 unit PO WEEKLY 09/06/20 08/15/22 History mcg (50,000 unit) capsule famotidine 20 mg tablet 20 mg PO DAILY 09/06/20 08/15/22 History levothyroxine 112 mcg tablet See Rx Instructions .Route .COMPLEX 09/06/20 08/15/22 History loratadine 10 mg tablet 10 mg PO DAILY 09/06/20 08/15/22 History meclizine 12.5 mg tablet 12.5 mg PO TID PRN Dizziness 09/06/20 08/15/22 History nystatin 100,000 unit/gram topical 1 applic topical BID 09/06/20 08/15/22 History cream phenobarbital 64.8 mg tablet 64.8 mg PO DAILY 09/06/20 08/15/22 History sertraline 100 mg tablet 100 mg PO DAILY 09/06/20 08/15/22 History vitamin B complex (B 1 tablet PO DAILY 09/06/20 08/15/22 History Complex-Vitamin B12 tablet) alendronate 70 mg tablet 70 mg PO WEEKLY 04/07/21 08/15/22 History docusate sodium 200 mg PO DAILY PRN Constipation 04/07/21 08/15/22 History hydralazine 50 mg tablet 50 mg PO Q12H 04/07/21 08/15/22 Histo
[2022-08-16] MEDS: SODIUM CHLORIDE 1 GM TABLET PO (09:44)
[2022-08-16] MEDS: MICONAZOLE NITRATE 2% CREAM 30 GM TUBE 1 APPLIC TOPICAL (09:49)
[2022-08-16] MEDS: LOVASTATIN 10 MG TABLET PO (09:50)
[2022-08-16 10:17] LABS: Anion Gap 9 mmol/L (8-16); Blood Urea Nitrogen 6 mg/dL (7-18); Calcium 9.6 mg/dL (8.5-10.1); Carbon Dioxide 27 mmol/L (21-32); Chloride 98 mmol/L (98-108); Estimated CRCL calculation 87 ml/min; Estimated Glomerular Filt Rate > 60; Glucose 107 mg/dL (70-99); Osmolality Calculated 275 mOsm/kg (285-295); Potassium 4.1 mmol/L (3.5-5.1); Sodium 134 mmol/L (136-145)
--- NOTE | 2022-08-18 10:16 | PC.NURSE ---
[facility] states they received and understood the discharge instructions and states the patient is doing well.
[2022-08-20 13:03] LABS: Glucose Point of Care 100 mg/dl (65-105)
== END 2022-08-16 11:25 | disposition home or self-care (01) ==
LOC: CHSED 06:54 → CHS2ND 08:21
PROVIDERS: Nurse Practitioner; Admitting Provider Internal Medicine; Emergency Provider Emergency Medicine; PCP Internal Medicine; Visit Provider Internal Medicine
DX: E87.1 Hypo-osmolality and hyponatremia (principal); I10 Essential (primary) hypertension; E03.9 Hypothyroidism, unspecified; E11.9 Type 2 diabetes mellitus without complications; E78.5 Hyperlipidemia, unspecified; E55.9 Vitamin D deficiency, unspecified; M85.80 Other specified disorders of bone density and structure, unspecified site; K21.9 Gastro-esophageal reflux disease without esophagitis; G93.89 Other specified disorders of brain; G40.909 Epilepsy, unspecified, not intractable, without status epilepticus; F79 Unspecified intellectual disabilities; F32.A Depression, unspecified; Z87.891 Personal history of nicotine dependence; Z87.820 Personal history of traumatic brain injury
CPT/HCPCS: 36415; 70450; 80048; 80053; 81001; 82948; 83605; 83880; 84443; 85025; 85610; 85730; 86140; 87040; 93005; 96360; 96372; 99285; A9270; G0378; G0379; J1650; J7040

== ENCOUNTER 2022-08-25 10:27 | Outpatient (CLI) | payer OTHER, SELFPAY ==
[2022-08-25 11:40] LABS: Anion Gap 8 mmol/L (8-16); Blood Urea Nitrogen 22 mg/dL (7-18); Calcium 9.1 mg/dL (8.5-10.1); Carbon Dioxide 27 mmol/L (21-32); Chloride 104 mmol/L (98-108); Estimated Glomerular Filt Rate 56; Glucose 96 mg/dL (70-99); Osmolality Calculated 291 mOsm/kg (285-295); Potassium 4.6 mmol/L (3.5-5.1); Sodium 139 mmol/L (136-145)
== END 2022-08-25 10:28 | disposition home or self-care (01) ==
LOC: CHSLAB 10:31
PROVIDERS: PCP Internal Medicine; Visit Provider Nurse Practitioner
DX: E87.1 Hypo-osmolality and hyponatremia (principal)
CPT/HCPCS: 36415; 80048

== ENCOUNTER 2022-09-26 07:06 | Outpatient (CLI) | payer OTHER, SELFPAY ==
[2022-09-26 07:54] LABS: Anion Gap 5 mmol/L (8-16); Blood Urea Nitrogen 6 mg/dL (7-18); Calcium 10.1 mg/dL (8.5-10.1); Carbon Dioxide 28 mmol/L (21-32); Chloride 100 mmol/L (98-108); Estimated Glomerular Filt Rate > 60; Glucose 87 mg/dL (70-99); Osmolality Calculated 272 mOsm/kg (285-295); Potassium 4.9 mmol/L (3.5-5.1); Sodium 133 mmol/L (136-145)
== END 2022-09-26 07:07 | disposition home or self-care (01) ==
LOC: CHSLAB 07:08
PROVIDERS: PCP Internal Medicine; Visit Provider Internal Medicine
DX: I10 Essential (primary) hypertension (principal)
CPT/HCPCS: 36415; 80048

== ENCOUNTER 2022-10-27 06:50 | Outpatient (CLI) | payer OTHER, SELFPAY ==
[2022-10-27 07:29] LABS: Basophils Absolute Auto 0.06 K/mm3 (0.00-0.10); Basophils Percent Auto 1.1 % (0.0-1.0); Eosinophils Absolute Auto 0.15 K/mm3 (0.02-0.50); Eosinophils Percent Auto 2.7 % (1.0-6.0); Hematocrit 39.3 % (35.0-42.0); Hemoglobin 12.7 g/dL (11.7-13.8); Immature Granulocyte Absolute 0.03 K/mm3 (0.00-0.00); Immature Granulocyte Percent A 0.5 % (0.0-0.0); Lymphocytes Absolute Auto 1.15 K/mm3 (1.10-4.50); Lymphocytes Percent Auto 20.9 % (18.0-42.0); Mean Corpuscular HGB Conc 32.3 g/dL (32.0-36.0); Mean Corpuscular Hemoglobin 29.8 pg (27.0-31.0); Mean Corpuscular Volume 92.3 fL (78.0-102.0); Mean Platelet Volume 9.4 fl (9.2-11.8); Monocytes Absolute Auto 0.61 K/mm3 (0.10-0.90); Monocytes Percent Auto 11.1 % (2.0-11.0); Neutrophils Absolute Auto 3.5 K/mm3 (1.7-7.2); Neutrophils Percent Auto 63.7 % (50.0-70.0); Platelet Count Result 249 K/mm3 (150-420); Red Blood Count 4.26 M/mm3 (4.20-5.40); Red Cell Distribution Width 13.3 % (11.6-14.4); White Blood Count 5.5 K/mm3 (4.8-10.8)
[2022-10-27 07:31] LABS: Appearance Urine Clear (Clear); Bilirubin Urine Negative (Negative); Blood Urine Negative (Negative); Color Urine Light Yellow (Yellow); Glucose Urine UA Negative (Negative); Ketones Urine Negative (Negative); Leukocyte Esterase Ur Negative LEU/UL (Negative); Nitrate Urine Negative (Negative); Protein Urine Negative (Negative); Urobilinogen Urine 0.2 mg/dL (0.2-1.0)
[2022-10-27 07:34] LABS: Hemoglobin A1C 5.7 % (<5.7)
[2022-10-27 07:48] LABS: Add Urine Microscopic? NO
[2022-10-27 08:19] LABS: MALB Creatinine Ratio 35.9 mg/g (0-30); Microalbumin Urine Random < 13.0 mg/L
[2022-10-27 08:47] LABS: Alanine Aminotransferase 31 U/L (14-59); Albumin Level 3.6 g/dL (3.4-5.0); Alkaline Phosphatase 100 U/L (46-116); Anion Gap 6 mmol/L (8-16); Aspartate Amino Transferase 17 U/L (15-37); Bilirubin,Total 0.3 mg/dL (0.00-1.00); Blood Urea Nitrogen 10 mg/dL (7-18); Calcium 9.9 mg/dL (8.5-10.1); Carbon Dioxide 28 mmol/L (21-32); Chloride 100 mmol/L (98-108); Cholesterol 218 mg/dL (0-200); Creatine Kinase 59 U/L (26-192); Estimated Glomerular Filt Rate > 60; Free T3 2.27 pg/mL (2.18-3.98); Free T4 Free Thyroxine 1.07 ng/dL (0.76-1.46); Glucose 83 mg/dL (70-99); HDL Direct 104 mg/dL (40-60); LDL Cholesterol Calculated 93 mg/dL (<130); Osmolality Calculated 276 mOsm/kg (285-295); Potassium 5.1 mmol/L (3.5-5.1); Sodium 134 mmol/L (136-145); Thyroid Stimulating Hormone 1.46 uIU/mL (0.36-3.74); Total Protein 7.5 g/dL (6.4-8.2); Triglycerides 105 mg/dL (0-150)
[2022-10-29 19:53] LABS: Vitamin D 25 Hydroxy 53 ng/mL (30-100)
== END 2022-10-27 06:51 | disposition home or self-care (01) ==
LOC: CHSLAB 06:52
PROVIDERS: PCP Internal Medicine; Visit Provider Internal Medicine
DX: I10 Essential (primary) hypertension (principal); E78.2 Mixed hyperlipidemia; E55.9 Vitamin D deficiency, unspecified; R73.01 Impaired fasting glucose; E03.4 Atrophy of thyroid (acquired); N39.0 Urinary tract infection, site not specified
CPT/HCPCS: 36415; 80053; 80061; 81003; 82043; 82306; 82550; 83036; 84439; 84443; 84481; 85025

== ENCOUNTER 2023-02-19 09:33 | Outpatient (CLI) | payer OTHER, SELFPAY ==
--- NOTE | ~2023-02-19 | MM_ITS ---
EXAMINATION: MM screening antonio BI w eli HISTORY: Screening mammogram TECHNIQUE: Craniocaudal and mediolateral oblique 3-D tomosynthesis images were obtained and synthetic 2-D images were generated. CAD analysis was submitted and interpreted. COMPARISON: 02/04/2022, 11/05/2020, 11/02/2019 bilateral screening mammogram examinations BREAST PARENCHYMAL COMPOSITION: There are scattered areas of fibroglandular density. FINDINGS: There is a biopsy marker on the right. There is no evidence of suspicious mass, calcificati on, or architectural distortion to suggest malignancy in either breast. There has been no suspicious interval change. IMPRESSION: 1. No mammographic evidence of malignancy. 2. Recommend routine screening mammography in one year. BI-RADS Category 1: Negative Reviewed, dictated and finalized at location A.
== END 2023-02-19 09:34 | disposition home or self-care (01) ==
LOC: CHSIMG 09:33
PROVIDERS: PCP Internal Medicine; Visit Provider Internal Medicine
DX: Z12.31 Encounter for screening mammogram for malignant neoplasm of breast (principal)
CPT/HCPCS: 77063; 77067

== ENCOUNTER 2023-08-10 12:58 | Observation (INO) | payer OTHER, SELFPAY ==
[2023-08-10] VITALS (19 sets, daily range): BP systolic 134–175; BP diastolic 46–76; PULSE 54–76; RESP 20–27; TEMP 36.6; O2SAT 87–100
--- NOTE | ~2023-08-10 | XR_ITS ---
EXAMINATION: XR chest 1V portable DATE: 08/10/2023 13:27 INDICATION: Smoker presenting with shortness of breath TECHNIQUE: frontal view of the chest was obtained. COMPARISON: None FINDINGS: The lungs are clear with no focal airspace opacities, pulmonary edema, pleural effusion or pneumothor ax. The cardiomediastinal silhouette is normal. Mild thoracic spondylosis. IMPRESSION: 1. No acute cardiopulmonary disease. Reviewed, dictated and finalized at location A.
--- NOTE | 2023-08-10 13:15 | ECG_ITS ---
SEE SCANNED COPY FOR CONFIRMED REPORT MTDD
--- NOTE | 2023-08-10 13:21 | ED.GENADULT ---
HPI - General Adult General Chief complaint: Shortness of Breath/Dyspnea Stated complaint: SOB Time Seen by Provider: 08/10/23 13:09 History of Present Illness HPI narrative: This is 68-year-old female presenting the ED with chief complaint of shortness of breath. Says her breathing has gotten steadily worse over the last 9 days. She feels like she has to cough but cannot clear his secretions. associated symptoms include cough congestion. She denies fevers chest pain abdominal pain nausea vomiting diarrhea or urinary symptoms. Related Data Home Medications Medication Instructions Recorded Confirmed acetaminophen 325 mg tablet 650 mg PO Q4H PRN Pain 09/06/20 08/10/23 albuterol sulfate 90 mcg/actuation 2 puff inhalation Q4-6H PRN 09/06/20 08/10/23 aerosol inhaler Wheezing aluminum-magnesium hydroxide 500 30 ml PO Q4H PRN Nausea 09/06/20 08/10/23 mg-500 mg/5 mL oral suspension amlodipine 10 mg tablet 10 mg PO DAILY 09/06/20 08/10/23 carbamazepine 100 mg chewable 200 mg PO TID 09/06/20 08/10/23 tablet ergocalciferol (vitamin D2) 1,250 50,000 unit PO WEEKLY 09/06/20 08/10/23 mcg (50,000 unit) capsule famotidine 20 mg tablet 20 mg PO DAILY 09/06/20 08/10/23 levothyroxine 112 mcg tablet See Rx Instructions .Route .COMPLEX 09/06/20 08/10/23 loratadine 10 mg tablet 10 mg PO DAILY 09/06/20 08/10/23 nystatin 100,000 unit/gram topical 1 applic topical BID 09/06/20 08/10/23 cream phenobarbital 64.8 mg tablet 64.8 mg PO DAILY 09/06/20 08/10/23 sertraline 100 mg tablet 100 mg PO DAILY 09/06/20 08/10/23 vitamin B complex (B 1 tablet PO DAILY 09/06/20 08/10/23 Complex-Vitamin B12 tablet) alendronate 70 mg tablet 70 mg PO WEEKLY 04/07/21 08/10/23 docusate sodium 200 mg PO DAILY PRN Constipation 04/07/21 08/10/23 hydralazine 50 mg tablet 50 mg PO Q12H 04/07/21 08/10/23 lovastatin 10 mg tablet 10 mg PO DAILY 04/07/21 08/10/23 phenytoin sodium extended 100 mg 100 mg PO BID 04/07/21 08/10/23 capsule aripiprazole 5 mg tablet 5 mg PO HS 08/15/22 08/10/23 cetirizine 10 mg tablet 10 mg PO DAILY 08/10/23 08/10/23 Allergies Allergy/AdvReac Type Severity Reaction Status Date / Time aspirin Allergy Unknown Verified 08/10/23 13:12 Penicillins Allergy Unknown Verified 08/10/23 13:12 [facility] Past Medical History Medical History Adnexal mass Chronic constipation COPD (chronic obstructive pulmonary disease) Depression Diabetes mellitus Essential hypertension GERD (gastroesophageal reflux disease) Hyperlipidemia Hypothyroidism (acquired) Intellectual disability 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 She is on disability. She used to smoke 1 pack of cigarettes per day for 33 years but quit smoking in 2007. She denies any history of alcohol or drug use. She has 1 daughter that was raised by her sister. The patient is not in contact with her daughter. Primary care physician: Dr. Almazan Code status: Full code Surrogate decision maker: None Smoking status: Unknown if ever smoked Second hand tobacco smoke exposure: Yes Smoking end date: 04/27/16 Alcohol intake: unknown Substance use: unknown Substance use type: does not use Spiritual care concerns: No Exam Narrative: APPEARANCE: No apparent distress. Head: atraumatic. EYES: EOMI, NOSE: At
[2023-08-10] MEDS: IPRATROPIUM 0.5 MG/ALBUTEROL SULFATE 2.5 MG AMPUL.NEB 3 ML 12 ML INHALATION (13:35)
[2023-08-10 13:44] LABS: Basophils Absolute Auto 0.02 K/mm3 (0.00-0.10); Basophils Percent Auto 0.5 % (0.0-1.0); Eosinophils Absolute Auto 0.01 K/mm3 (0.02-0.50); Eosinophils Percent Auto 0.2 % (1.0-6.0); Hematocrit 37.7 % (35.0-42.0); Hemoglobin 12.4 g/dL (11.7-13.8); Immature Granulocyte Absolute 0.03 K/mm3 (0.00-0.00); Immature Granulocyte Percent A 0.7 % (0.0-0.0); Lymphocytes Absolute Auto 0.72 K/mm3 (1.10-4.50); Lymphocytes Percent Auto 17.3 % (18.0-42.0); Mean Corpuscular HGB Conc 32.9 g/dL (32-36); Mean Corpuscular Hemoglobin 29.7 pg (27.0-31.0); Mean Corpuscular Volume 90.2 fL (78.0-102.0); Mean Platelet Volume 9.1 fl (9.2-11.8); Monocytes Absolute Auto 0.53 K/mm3 (0.10-0.90); Monocytes Percent Auto 12.8 % (2.0-11.0); Neutrophils Absolute Auto 2.84 K/mm3 (1.70-7.20); Neutrophils Percent Auto 68.5 % (50.0-70.0); Platelet Count Result 163 K/mm3 (150-420); Red Blood Count 4.18 M/mm3 (4.20-5.40); Red Cell Distribution Width 13.2 % (11.6-14.4); White Blood Count 4.2 K/mm3 (4.8-10.8)
[2023-08-10] MEDS: MAGNESIUM SULF 2 GM/WATER 50ML 2 GM/50 ML BAG IVPB (14:03)
[2023-08-10] MEDS: dexAMETHasone SOD PHOS INJ 10 MG/ML 1 ML VIAL IV PUSH (14:03)
[2023-08-10] MEDS: SODIUM CHLORIDE 0.9% IV 1,000 ML 999 ML IV CONT (14:03)
[2023-08-10 14:05] LABS: Alanine Aminotransferase 41 U/L (14-59); Albumin Level 3.1 g/dL (3.4-5.0); Alkaline Phosphatase 72 U/L (46-116); Anion Gap 5 mmol/L (4-12); Aspartate Amino Transferase 43 U/L (15-37); Bilirubin,Total 0.4 mg/dL (0.00-1.00); Blood Urea Nitrogen 6 mg/dL (7-18); Calcium 8.5 mg/dL (8.5-10.1); Carbon Dioxide 31 mmol/L (21-32); Chloride 96 mmol/L (98-108); Estimated CRCL calculation 60 ml/min; Estimated Glomerular Filt Rate > 60; Glucose 116 mg/dL (70-99); NT Pro B Type Natriuretic Pept 277 pg/mL (0-125); Osmolality Calculated 272 mOsm/kg (285-295); Potassium 3.6 mmol/L (3.5-5.1); Sodium 132 mmol/L (136-145); Total Protein 7.3 g/dL (6.4-8.2)
[2023-08-10 14:09] LABS: Glucose Point of Care 113 mg/dl (65-105)
--- NOTE | 2023-08-10 14:12 | PC.NURSE ---
PT IS SITTING UP ON STRETCHER WITH IVF AND MEDICATIONS INFUSING ORDERED WITHOUT DIFFICULTY. PT HAS COMPLETED NEB TX. PT IS WATCHING TV WITHOUT DIFFICULTY. WILL CONTINUE TO MONITOR. PT IS AWAITING RESULTS AT THIS TIME.
[2023-08-10 14:14] LABS: SARS-CoV-2 RNA PCR Negative (Negative)
[2023-08-10 14:17] LABS: Influenza A QL RT-PCR Positive (Negative); Influenza B QL RT-PCR Negative (Negative); RSV RNA, RT-PCR Negative (Negative)
--- NOTE | 2023-08-10 14:45 | PC.NURSE ---
pt has been accepted for admission to room 208 at [facility]. pt is agreeable to admission.
[2023-08-10] MEDS: OSELTAMIVIR PHOSPHATE 75 MG CAPSULE PO ×2 (15:41→21:51)
--- NOTE | 2023-08-10 15:59 | PC.NURSE ---
delay due to pt needing transport, staff unavailable.
[2023-08-10] MEDS: PHENYTOIN SODIUM 100 MG EXTENDED RELEASE CAP PO (19:12)
[2023-08-10] MEDS: MICONAZOLE NITRATE 2% CREAM 30 GM TUBE 1 APPLIC TOPICAL (19:12)
[2023-08-10] MEDS: IPRATROPIUM 0.5 MG/ALBUTEROL SULFATE 2.5 MG AMPUL.NEB 3 ML INHALATION ×2 (19:13→23:30)
[2023-08-10] MEDS: hydrALAZINE HCL 25 MG TABLET 50 MG PO (20:39)
[2023-08-10] MEDS: ARIPiprazole 5 MG TABLET PO (20:39)
[2023-08-11] VITALS: BP 149/60; PULSE 64; RESP 20; TEMP 36.4; O2SAT 95
[2023-08-11] MEDS: ONDANSETRON INJ 4 MG/2 ML VIAL IV PUSH (03:03)
[2023-08-11 05:38] LABS: Basophils Absolute Auto 0.03 K/mm3 (0.00-0.10); Basophils Percent Auto 0.7 % (0.0-1.0); Eosinophils Absolute Auto 0.02 K/mm3 (0.02-0.50); Eosinophils Percent Auto 0.5 % (1.0-6.0); Hematocrit 35.9 % (35.0-42.0); Hemoglobin 11.4 g/dL (11.7-13.8); Immature Granulocyte Absolute 0.03 K/mm3 (0.00-0.00); Immature Granulocyte Percent A 0.7 % (0.0-0.0); Lymphocytes Absolute Auto 0.92 K/mm3 (1.10-4.50); Lymphocytes Percent Auto 22.4 % (18.0-42.0); Mean Corpuscular HGB Conc 31.8 g/dL (32-36); Mean Corpuscular Hemoglobin 28.7 pg (27.0-31.0); Mean Corpuscular Volume 90.4 fL (78.0-102.0); Mean Platelet Volume 9.1 fl (9.2-11.8); Monocytes Absolute Auto 0.47 K/mm3 (0.10-0.90); Monocytes Percent Auto 11.5 % (2.0-11.0); Neutrophils Absolute Auto 2.63 K/mm3 (1.70-7.20); Neutrophils Percent Auto 64.2 % (50.0-70.0); Platelet Count Result 164 K/mm3 (150-420); Red Blood Count 3.97 M/mm3 (4.20-5.40); Red Cell Distribution Width 13.4 % (11.6-14.4); White Blood Count 4.1 K/mm3 (4.8-10.8)
[2023-08-11 05:55] VITALS: PULSE 55; RESP 20; O2SAT 99
[2023-08-11 05:57] LABS: Alanine Aminotransferase 39 U/L (14-59); Albumin Level 2.9 g/dL (3.4-5.0); Alkaline Phosphatase 67 U/L (46-116); Anion Gap 6 mmol/L (4-12); Aspartate Amino Transferase 35 U/L (15-37); Bilirubin,Total 0.3 mg/dL (0.00-1.00); Blood Urea Nitrogen 5 mg/dL (7-18); Carbon Dioxide 29 mmol/L (21-32); Chloride 100 mmol/L (98-108); Estimated CRCL calculation 78 ml/min; Estimated Glomerular Filt Rate > 60; Glucose 106 mg/dL (70-99); Magnesium 2.1 mg/dL (1.8-2.4); Osmolality Calculated 277 mOsm/kg (285-295); Potassium 3.3 mmol/L (3.5-5.1); Sodium 135 mmol/L (136-145)
[2023-08-11] MEDS: LEVOTHYROXINE SODIUM 112 MCG TABLET 224 MCG PO (05:58)
[2023-08-11] MEDS: IPRATROPIUM 0.5 MG/ALBUTEROL SULFATE 2.5 MG AMPUL.NEB 3 ML INHALATION (05:59)
[2023-08-11 06:07] VITALS: PULSE 54; RESP 20; O2SAT 99
--- NOTE | 2023-08-11 07:25 | PM.SD2 ---
Same Day Admit/Disch: HPI History of Present Illness Chief complaint: FLU Narrative: Lisa Colon is a 68 year old female ?This is 68-year-old female presenting the ED with chief complaint of shortness of breath.? Says her breathing has gotten steadily worse over the last 9 days.? She feels like she has to cough but cannot clear his secretions. ? associated symptoms include cough congestion.? She denies fevers chest pain abdominal pain nausea vomiting diarrhea or urinary symptoms. Patient vitals signs are stable she is positive for influenza and she will have some coughing and congestion associated with this she may also be tired at this time there is no indication to remain in the hosptial and she is not requiring oxygen Patient should follow up with her primary care provider. 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 She is on disability. She used to smoke 1 pack of cigarettes per day for 33 years but quit smoking in 2007. She denies any history of alcohol or drug use. She has 1 daughter that was raised by her sister. The patient is not in contact with her daughter. Primary care physician: Dr. Almazan Code status: Full code Surrogate decision maker: None Smoking status: Never smoker Second hand tobacco smoke exposure: Yes Smoking end date: 04/27/16 Alcohol intake: never Substance use: never Substance use type: does not use Do You Feel Safe in your Home?: Yes Lack of Transportation: No Lack of Food: Never True Current Housing: I Have Housing Concerned About Future Housing: No Difficulty Paying Gas/Electric Bills: No Difficulty Paying for Meds: No Currently Unemployed: No Education: High School Diploma/GED Difficulty w/ Childcare or Family Care: No Spiritual care concerns: No Same Day Admit/Disch: Med Pre-admit Medications Home Medications Medication Instructions Recorded Confirmed Type acetaminophen 325 mg tablet 650 mg PO Q4H PRN Pain 09/06/20 08/17/23 History albuterol sulfate 90 mcg/actuation 2 puff inhalation Q4-6H PRN 09/06/20 08/17/23 History aerosol inhaler Wheezing amlodipine 10 mg tablet 10 mg PO DAILY 09/06/20 08/17/23 History carbamazepine 100 mg chewable 100 mg PO TID 09/06/20 08/17/23 History tablet ergocalciferol (vitamin D2) 1,250 50,000 unit PO WEEKLY 09/06/20 08/17/23 History mcg (50,000 unit) capsule famotidine 20 mg tablet 20 mg PO DAILY 09/06/20 08/17/23 History levothyroxine 112 mcg tablet See Rx Instructions .Route .COMPLEX 09/06/20 08/17/23 History phenobarbital 64.8 mg tablet 64.8 mg PO DAILY 09/06/20 08/17/23 History sertraline 100 mg tablet 100 mg PO DAILY 09/06/20 08/17/23 History vitamin B complex (B 1 tablet PO DAILY 09/06/20 08/17/23 History Complex-Vitamin B12 tablet) alendronate 70 mg tablet 70 mg PO WEEKLY 04/07/21 08/17/23 History docusate sodium 200 mg PO DAILY PRN Constipation 04/07/21 08/17/23 History hydralazine 50 mg tablet 50 mg PO Q12H 04/07/21 08/17/23 History lovastatin 10 mg tablet 10 mg
[2023-08-11 08:00] VITALS: BP 159/60; PULSE 63; RESP 14; TEMP 36.8; O2SAT 90
[2023-08-11] MEDS: guaiFENesin/DEXTROMETHORPHAN 5 ML UDC 10 ML PO (08:19)
[2023-08-11] MEDS: POTASSIUM CHLORIDE 20 MEQ ER TABLET PO (08:20)
--- NOTE | 2023-08-11 08:34 | PHAR ---
VERIFIED PT.'S HOME MEDICIATION PHENOBARBITAL 64.8MG TABLET, TAKE 1 TABLET BY MOUTH DAILY.
[2023-08-11] MEDS: CIPROFLOXACIN HCL 0.3% OP SOLN 2.5 ML BTL 2 DROP EACH EYE (08:53)
[2023-08-11] MEDS: LOVASTATIN 10 MG TABLET PO (08:54)
[2023-08-11] MEDS: hydrALAZINE HCL 25 MG TABLET 50 MG PO (08:54)
[2023-08-11] MEDS: PHENYTOIN SODIUM 100 MG EXTENDED RELEASE CAP PO (08:54)
[2023-08-11] MEDS: VITAMIN B COMPLEX CAPSULE 1 CAP PO (08:54)
[2023-08-11] MEDS: FAMOTIDINE 20 MG TABLET PO (08:55)
[2023-08-11] MEDS: LORATADINE 10 MG TABLET PO (08:55)
[2023-08-11] MEDS: SERTRALINE HCL 50 MG TABLET 100 MG PO (08:55)
[2023-08-11] MEDS: OSELTAMIVIR PHOSPHATE 75 MG CAPSULE PO (08:56)
[2023-08-11] MEDS: MICONAZOLE NITRATE 2% CREAM 30 GM TUBE 1 APPLIC TOPICAL (08:56)
[2023-08-11] MEDS: amLODIPine BESYLATE 5 MG TABLET 10 MG PO (09:00)
[2023-08-11] MEDS: polyethylene glycoL 3350 17 GM POWD.PACK PO (09:02)
--- NOTE | 2023-08-11 10:40 | PC.NURSE ---
Pt discharged back to [facility]. [facility] came to pick her up. Discharge instructions given to both the pt and the CG. Medicine instructions given regarding doseage, times, side effects and reason for taking. instructed pt to make an appointment with her PCP for follow up.
[2023-08-12 09:17] VITALS: O2SAT 96
--- NOTE | 2023-08-13 09:27 | PC.NURSE ---
Discharge call back to [facility] completed, doing well, no questons regarding dc instructions
== END 2023-08-11 09:50 ==
LOC: CHSED 13:43 → CHS2ND 15:06
PROVIDERS: Nurse Practitioner; Admitting Provider Internal Medicine; Emergency Provider Emergency Medicine; PCP Internal Medicine; Visit Provider Internal Medicine
DX: J10.1 Influenza due to other identified influenza virus with other respiratory manifestations (principal); J44.9 Chronic obstructive pulmonary disease, unspecified; R09.02 Hypoxemia; R41.82 Altered mental status, unspecified; R09.89 Other specified symptoms and signs involving the circulatory and respiratory systems; K59.09 Other constipation; F32.A Depression, unspecified; E11.9 Type 2 diabetes mellitus without complications; R00.1 Bradycardia, unspecified; I45.10 Unspecified right bundle-branch block; I10 Essential (primary) hypertension; Z20.822 Contact with and (suspected) exposure to COVID-19; E03.9 Hypothyroidism, unspecified; F79 Unspecified intellectual disabilities; Z87.820 Personal history of traumatic brain injury; M85.80 Other specified disorders of bone density and structure, unspecified site; G40.909 Epilepsy, unspecified, not intractable, without status epilepticus; E55.9 Vitamin D deficiency, unspecified; Z87.891 Personal history of nicotine dependence; Z79.51 Long term (current) use of inhaled steroids; Z79.899 Other long term (current) drug therapy
CPT/HCPCS: 36415; 71045; 80053; 82948; 83735; 83880; 85025; 87637; 93005; 94640; 96365; 96374; 96375; 99285; A9270; G0378; J1100; J2405; J3475; J7030

== ENCOUNTER 2023-08-17 17:23 | Observation (INO) | payer OTHER, SELFPAY ==
[2023-08-17] VITALS (13 sets, daily range): BP systolic 144–176; BP diastolic 46–99; PULSE 62–75; RESP 14–22; TEMP 36.2–37.2; O2SAT 91–100; BMI 31.7
--- NOTE | ~2023-08-17 | CT_ITS ---
EXAMINATION: CT abdomen pelvis w con DATE: 08/17/2023 19:02 INDICATION: abdominal pain, constipation TECHNIQUE: Computed tomography (CT) of the abdomen and pelvis was performed with 100 mL Omnipaque-350 intravenous contrast. Automated exposure control and iterative reconstruction technique were employe d. The dose-length product was 597.61 mGy-cm. COMPARISON: Renal ultrasound 05/16/2019; pelvic ultrasound 07/27/2017; MR pelvis 03/11/2017. FINDINGS: Lower thorax: Coronary artery calcification. Scattered reticular, groundglass and centrilobular nodul ar opacities in the lung bases. Liver: Scattered subcentimeter hypodensities, too small to characterize, likely cysts or hemangiomas. Biliary/Gallbladder: Gallbladder is normal. No bile duct dilation. Pancreas: No mass or duct dilation. Spleen: Normal. Adrenals:Left adrenal adenoma. Normal right adrenal gland. Kidneys: No suspicious mass, obstructing stone, or hydronephrosis. Subcentimeter exophytic right midp ole lesion, hyperdense, likely proteinaceous or hemorrhagic cyst. Multiple simple bilateral cysts and hypodensities that are too small to characterize, but also likely represent cysts. GI tract: No small or large bowel dilation. Normal appendix. Mesentery/Peritoneum: No ascites, mass, or free air. Retroperitoneum: No mass. Atherosclerotic abdominal aortic and/or arterial calcifications. Pelvis: 6.6 cm right pelvic mass, likely associated with the ovary. Trace adnexal fluid. Normal uteru s. Normal atrophic left ovary. Normal urinary bladder. Soft Tissues: Soft tissues and body wall unremarkable. Bones: No acute osseous finding. IMPRESSION: Basilar pulmonary opacities may represent atypical infection, pneumonitis, or aspiration. 6.6 cm right pelvic mass, likely representing enlargement of an adnexal mass seen in prior pelvic MR and ultrasound examinations, but comparison images are not available this time. Possible benign neopl asm. Recommend nonemergent but timely pelvic MRI for further evaluation. Reviewed, dictated and finalized at location K. IMPRESSION: Basilar pulmonary opacities may represent atypical infection, pneumonitis, or a spiration. 6.6 cm right pelvic mass, likely representing enlargement of an adnexal mass se en in prior pelvic MR and ultrasound examinations, but comparison images are no t available this time. Possible benign neoplasm. Recommend nonemergent but time ly pelvic MRI for further evaluation.
--- NOTE | ~2023-08-17 | XR_ITS ---
EXAMINATION: XR chest 1V portable Exam Date/Time: 08/17/2023 18:50 CDT HISTORY: dyspnea, hypoxia Comparison: 08/10/2023. RESULT: Lines, tubes, and devices: None. Lungs and pleura: Mild diffuse reticular opacities with cuffing. Cardiomediastinal silhouette: Stable. Other: No acute osseous or upper abdominal finding. IMPRESSION: Pulmonary opacities may represent mild interstitial edema or respiratory bronchiolitis depending on t he clinical context. Reviewed, dictated and finalized at location K. IMPRESSION: Pulmonary opacities may represent mild interstitial edema or respiratory bronch iolitis depending on the clinical context.
--- NOTE | 2023-08-17 17:34 | ED.GENADULT ---
HPI - General Adult General Chief complaint: Shortness of Breath/Dyspnea Stated complaint: SOB History of Present Illness HPI narrative: Lisa is a 68F with a PMH of COPD, hypothyroidism, DMII, HTN, osteoporosis, tobacco abuse and recent hospitalization for influenza (discharged yesterday) that presented to the ED via ambulance from [facility] not feeling well. She reports that she h as not had a BM in at least 5 days. She feels backed up, nauseated, had 1 episode of vomiting, and has more dyspnea, cough and congestion. She had a temp up to 100.0 but denies chest pain. Related Data Home Medications Medication Instructions Recorded Confirmed acetaminophen 325 mg tablet 650 mg PO Q4H PRN Pain 09/06/20 08/17/23 albuterol sulfate 90 mcg/actuation 2 puff inhalation Q4-6H PRN 09/06/20 08/17/23 aerosol inhaler Wheezing amlodipine 10 mg tablet 10 mg PO DAILY 09/06/20 08/17/23 carbamazepine 100 mg chewable 100 mg PO TID 09/06/20 08/17/23 tablet ergocalciferol (vitamin D2) 1,250 50,000 unit PO WEEKLY 09/06/20 08/17/23 mcg (50,000 unit) capsule famotidine 20 mg tablet 20 mg PO DAILY 09/06/20 08/17/23 levothyroxine 112 mcg tablet See Rx Instructions .Route .COMPLEX 09/06/20 08/17/23 phenobarbital 64.8 mg tablet 64.8 mg PO DAILY 09/06/20 08/17/23 sertraline 100 mg tablet 100 mg PO DAILY 09/06/20 08/17/23 vitamin B complex (B 1 tablet PO DAILY 09/06/20 08/17/23 Complex-Vitamin B12 tablet) alendronate 70 mg tablet 70 mg PO WEEKLY 04/07/21 08/17/23 docusate sodium 200 mg PO DAILY PRN Constipation 04/07/21 08/17/23 hydralazine 50 mg tablet 50 mg PO Q12H 04/07/21 08/17/23 lovastatin 10 mg tablet 10 mg PO DAILY 04/07/21 08/17/23 phenytoin sodium extended 100 mg 100 mg PO BID 04/07/21 08/17/23 capsule aripiprazole 5 mg tablet 5 mg PO HS 08/15/22 08/17/23 cetirizine 10 mg tablet 10 mg PO DAILY 08/10/23 08/17/23 acetaminophen 500 mg tablet 1,000 mg PO HS 08/17/23 08/17/23 aluminum-mag hydroxide-simethicone 30 ml PO QID PRN UPSET STOMACH 08/17/23 08/17/23 200 mg-200 mg-20 mg/5 mL oral susp (Bety-Lanta) bismuth subsalicylate 262 mg/15 mL 525 mg PO DAILY PRN Heartburn 08/17/23 08/17/23 oral suspension (Stomach Relief) carbamazepine 200 mg tablet 200 mg PO TID 08/17/23 08/17/23 clotrimazole 1 % topical cream 1 applic topical TID 08/17/23 08/17/23 fluticasone propionate 50 2 spray intranasal DAILY 08/17/23 08/17/23 mcg/actuation nasal spray,suspension guaifenesin 100 mg/5 mL oral 100 mg PO QID PRN Cough 08/17/23 08/17/23 liquid (Chest Congestion Relief) melatonin 5 mg tablet 5 mg PO HS 08/17/23 08/17/23 nystatin 100,000 unit/gram topical 1 applic topical BID 08/17/23 08/17/23 cream nystatin 100,000 unit/gram topical 1 applic topical BID 08/17/23 08/17/23 powder (Nystop) sodium chloride 1,000 mg soluble 1,000 mg PO DAILY 08/17/23 08/17/23 tablet Allergies Allergy/AdvReac Type Severity Reaction Status Date / Time aspirin Allergy Unknown Verified 08/17/23 18:22 Penicillins Allergy Unknown Verified 08/17/23 18:22 Review of Systems Review of Systems: All systems reviewed & are unremarkable except as noted in HPI and below PMFSH Past Medical History Medical History Adnexal mass Chronic constipation COPD (chronic obstructive pulmonary disease) Depression Diabetes mellitus Essential hypertension GERD (gastroesophageal reflux disease) Hyperlipidemia Hypothyroidism (acquired) Intellectual disability 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
--- NOTE | 2023-08-17 17:40 | ECG_ITS ---
SEE SCANNED COPY FOR CONFIRMED REPORT MTDD
[2023-08-17] MEDS: ACETAMINOPHEN 500 MG TABLET 1000 MG PO (17:58)
[2023-08-17] MEDS: ONDANSETRON INJ 4 MG/2 ML VIAL IV PUSH (17:59)
[2023-08-17 18:03] LABS: Basophils Absolute Auto 0.08 K/mm3 (0.00-0.10); Basophils Percent Auto 0.6 % (0.0-1.0); Eosinophils Percent Auto 0.8 % (1.0-6.0); Hematocrit 41.6 % (35.0-42.0); Hemoglobin 13.2 g/dL (11.7-13.8); Immature Granulocyte Absolute 0.14 K/mm3 (0.00-0.00); Immature Granulocyte Percent A 1.1 % (0.0-0.0); Lymphocytes Absolute Auto 1.18 K/mm3 (1.10-4.50); Lymphocytes Percent Auto 8.9 % (18.0-42.0); Mean Corpuscular HGB Conc 31.7 g/dL (32-36); Mean Corpuscular Hemoglobin 28.9 pg (27.0-31.0); Monocytes Absolute Auto 1.24 K/mm3 (0.10-0.90); Monocytes Percent Auto 9.4 % (2.0-11.0); Neutrophils Absolute Auto 10.52 K/mm3 (1.70-7.20); Neutrophils Percent Auto 79.2 % (50.0-70.0); Platelet Count Result 472 K/mm3 (150-420); Red Blood Count 4.57 M/mm3 (4.20-5.40); Red Cell Distribution Width 13.6 % (11.6-14.4); White Blood Count 13.3 K/mm3 (4.8-10.8)
[2023-08-17] MEDS: IPRATROPIUM 0.5 MG/ALBUTEROL SULFATE 2.5 MG AMPUL.NEB 3 ML INHALATION ×2 (18:03→23:32)
[2023-08-17 18:06] LABS: SARS-CoV-2 RNA PCR Negative (Negative)
[2023-08-17 18:07] LABS: Influenza A QL RT-PCR Negative (Negative); Influenza B QL RT-PCR Negative (Negative); RSV RNA, RT-PCR Negative (Negative)
[2023-08-17 18:17] LABS: INR 0.9; Prothrombin Time 10.3 Seconds (9.50-12.1)
[2023-08-17 18:23] LABS: Lactic Acid Reflex 0.9 mmol/L (0.4-2.0)
[2023-08-17 18:30] LABS: Alanine Aminotransferase 27 U/L (14-59); Alkaline Phosphatase 107 U/L (46-116); Anion Gap 9 mmol/L (4-12); Aspartate Amino Transferase 20 U/L (15-37); Bilirubin,Total 0.4 mg/dL (0.00-1.00); Blood Urea Nitrogen 4 mg/dL (7-18); Calcium 9.9 mg/dL (8.5-10.1); Carbon Dioxide 30 mmol/L (21-32); Chloride 99 mmol/L (98-108); Estimated Glomerular Filt Rate > 60; Glucose 109 mg/dL (70-99); Lipase 31 U/L (16-77); NT Pro B Type Natriuretic Pept 474 pg/mL (0-125); Osmolality Calculated 283 mOsm/kg (285-295); Potassium 3.3 mmol/L (3.5-5.1); Sodium 138 mmol/L (136-145); Total Protein 8.6 g/dL (6.4-8.2); Troponin I 16.5 ng/L (0.00-60.4)
[2023-08-17 18:32] LABS: Appearance Urine Clear (Clear); Bilirubin Urine Negative (Negative); Blood Urine Negative (Negative); Color Urine Yellow (Yellow); Glucose Urine UA Negative (Negative); Ketones Urine Negative (Negative); Leukocyte Esterase Ur Negative LEU/UL (Negative); Nitrate Urine Negative (Negative); Protein Urine 1+ (Negative)
[2023-08-17 18:33] LABS: CRP 15.1 mg/dL (0.0-0.9)
[2023-08-17 18:39] LABS: Add Urine Microscopic? YES; Bacteria Urine 1+ /hpf; RBC Urine 0-2 /hpf (0-2); Squamous Epithelial Cell Urine Few /hpf (Few); WBC Urine 0-3 /hpf (0-3)
[2023-08-17] MEDS: FUROSEMIDE INJ 40 MG/4 ML VIAL IV PUSH (19:20)
[2023-08-17] MEDS: AZITHROMYCIN 250 MG TABLET 500 MG PO (19:23)
[2023-08-17] MEDS: methylPREDNISolone SOD SUCC 125 MG VIAL IV PUSH (19:23)
--- NOTE | 2023-08-17 20:05 | PC.NURSE ---
Call placed to floor, pt to go to Rm 209. Pt informed on POC for admit.
--- NOTE | 2023-08-17 21:15 | ADMGEN ---
This patient, Lisa Colon, was admitted to 2nd Floor Room 209-1. Patient/family oriented to hospital policies and general routines including ID bracelet, bed and alarms, visiting hours, pain management, procedures, bathroom and other care routines, personal items, smoking policy, room service/diet, and visiting hours. Clothing from [facility] in bag on recliner Information on how to activate the Rapid Response Team has been discussed. Patient/Family are encouraged to report perceived risks to care and to ask questions if they do not understand what they are told or what they should do.
[2023-08-17] MEDS: hydrALAZINE HCL 25 MG TABLET 50 MG PO (21:48)
[2023-08-17] MEDS: PHENYTOIN SODIUM 100 MG EXTENDED RELEASE CAP PO (21:49)
[2023-08-17] MEDS: DOCUSATE SODIUM 100 MG CAPSULE 200 MG PO (21:49)
[2023-08-17] MEDS: ARIPiprazole 5 MG TABLET PO (21:49)
[2023-08-17] MEDS: guaiFENesin/DEXTROMETHORPHAN 5 ML UDC PO (23:34)
[2023-08-17] MEDS: MELATONIN 5 MG TABLET PO (23:34)
[2023-08-18] VITALS (13 sets, daily range): BP systolic 143–174; BP diastolic 50–65; PULSE 59–82; RESP 16–22; TEMP 36.1–37.1; O2SAT 90–100
--- NOTE | 2023-08-18 00:15 | PC.NURSE ---
Addendum entered by Kim Cruz RN 08/18/23 00:33: Samantha mixer machine feeder informed patient complaint shakiness, sweating on forehead. Original Note: Called to room by patient. Loudly coughing, mostly non productive. Telemetry: [id number]. States hanks shaky and feels sweaty. Explained shakiness sometimes occurs after respiratory treatments. Coughing frequently may cause sweating. No SOB. Skin pink, warm and dry. Moisture noted on forehead. Patient removed blanket. No distress noted.
--- NOTE | 2023-08-18 00:35 | PC.NURSE ---
Patient sleeping, no distress noted. R. 16, unlabored, regular, symmetrical. Skin pink, warm and dry. Forehead dry. No further shaking noted of hands. See HUSAM. Talisha MUÑOZ Charge Nurse updated.
--- NOTE | 2023-08-18 02:15 | PC.NURSE ---
Continues to have episodic nonproductive cough. Sitting at side of bed. Pox: 91% on room air. Complains uncomfortable, feels SOB with persistent episodes of coughing. Explained to soom for more cough medicine. Placed O2 @2L per n.c. per patient request. no changes in rn cardiac. No signs of distress. Skin pink, warm and dry.
--- NOTE | 2023-08-18 02:30 | PC.NURSE ---
Called to room; patient c/o of uncomfortable from oxygen and repositioned; Continues to state uncomfortable. periodic coughing, denies pain. States wants Oxygen off. Oxygen removed. States I cant poop . Informed the charge nurse will notify the doctor of problem. Pox: 92%.
--- NOTE | 2023-08-18 03:10 | PC.NURSE ---
Called in room, Other nurse stated she'd checked oxygen and informed patient was correctly placed and on low air as her Oxygen level was normal range on Pox. Three calls to room by patient within 15 minutes. States she can't sleep, Informed to late to obtain different sleeping aide, Suggested turning on TV as a distraction, patient turned it on momentarily then turned it off and resumed using call light for multiple complaints. Requested her hair be detangled now. This nurse explained she should go to sleep or lie down in bed to rest and reoriented to time.
[2023-08-18] MEDS: IPRATROPIUM 0.5 MG/ALBUTEROL SULFATE 2.5 MG AMPUL.NEB 3 ML INHALATION ×3 (05:42→18:07)
[2023-08-18] MEDS: LEVOTHYROXINE SODIUM 112 MCG TABLET 224 MCG BY MOUTH (06:34)
[2023-08-18 08:23] LABS: Basophils Absolute Auto 0.05 K/mm3 (0.00-0.10); Basophils Percent Auto 0.5 % (0.0-1.0); Eosinophils Absolute Auto 0.04 K/mm3 (0.02-0.50); Eosinophils Percent Auto 0.4 % (1.0-6.0); Hematocrit 38.8 % (35.0-42.0); Hemoglobin 12.4 g/dL (11.7-13.8); Immature Granulocyte Absolute 0.14 K/mm3 (0.00-0.00); Immature Granulocyte Percent A 1.3 % (0.0-0.0); Lymphocytes Absolute Auto 1.28 K/mm3 (1.10-4.50); Lymphocytes Percent Auto 11.7 % (18.0-42.0); Mean Corpuscular Hemoglobin 28.9 pg (27.0-31.0); Mean Corpuscular Volume 90.4 fL (78.0-102.0); Monocytes Absolute Auto 1.02 K/mm3 (0.10-0.90); Monocytes Percent Auto 9.3 % (2.0-11.0); Neutrophils Absolute Auto 8.38 K/mm3 (1.70-7.20); Neutrophils Percent Auto 76.8 % (50.0-70.0); Platelet Count Result 467 K/mm3 (150-420); Red Blood Count 4.29 M/mm3 (4.20-5.40); Red Cell Distribution Width 13.8 % (11.6-14.4); White Blood Count 10.9 K/mm3 (4.8-10.8)
[2023-08-18 08:45] LABS: Magnesium 1.8 mg/dL (1.8-2.4)
[2023-08-18 08:54] LABS: Alanine Aminotransferase 25 U/L (14-59); Albumin Level 2.8 g/dL (3.4-5.0); Alkaline Phosphatase 101 U/L (46-116); Anion Gap 10 mmol/L (4-12); Aspartate Amino Transferase 20 U/L (15-37); Bilirubin,Total 0.4 mg/dL (0.00-1.00); Blood Urea Nitrogen 6 mg/dL (7-18); Calcium 9.8 mg/dL (8.5-10.1); Carbon Dioxide 30 mmol/L (21-32); Chloride 95 mmol/L (98-108); Estimated CRCL calculation 65 ml/min; Estimated Glomerular Filt Rate > 60; Glucose 102 mg/dL (70-99); NT Pro B Type Natriuretic Pept 490 pg/mL (0-125); Osmolality Calculated 277 mOsm/kg (285-295); Sodium 135 mmol/L (136-145); Total Protein 8.1 g/dL (6.4-8.2)
[2023-08-18] MEDS: LOVASTATIN 10 MG TABLET PO (09:01)
[2023-08-18] MEDS: guaiFENesin/DEXTROMETHORPHAN 5 ML UDC PO ×3 (09:01→21:10)
[2023-08-18] MEDS: ENOXAPARIN 40 MG/0.4 ML SYRINGE SUB-Q (09:02)
[2023-08-18] MEDS: hydrALAZINE HCL 25 MG TABLET 50 MG PO ×2 (09:03→19:59)
[2023-08-18] MEDS: SERTRALINE HCL 50 MG TABLET 100 MG PO (09:03)
[2023-08-18] MEDS: amLODIPine BESYLATE 5 MG TABLET 10 MG PO (09:04)
[2023-08-18] MEDS: LORATADINE 10 MG TABLET PO (09:05)
[2023-08-18] MEDS: PHENYTOIN SODIUM 100 MG EXTENDED RELEASE CAP PO ×2 (09:05→20:00)
[2023-08-18] MEDS: FAMOTIDINE 20 MG TABLET PO (09:05)
[2023-08-18] MEDS: VITAMIN B COMPLEX CAPSULE 1 CAP PO (09:06)
[2023-08-18] MEDS: DOCUSATE SODIUM 100 MG CAPSULE PO ×2 (09:06→17:06)
[2023-08-18] MEDS: carBAMazepine 200 MG TABLET PO ×3 (09:06→17:06)
[2023-08-18] MEDS: ACETAMINOPHEN 325 MG TABLET 650 MG PO (09:37)
--- NOTE | 2023-08-18 10:14 | PM.IMHP ---
H&P: HPI History of Present Illness Date/Time: 08/18/23 10:14 Chief Complaint: shortness of breath/dyspnea Narrative: this is a 68-year-old female with a significant past medical history of COPD, hypothyroidism, type 2 diabetes mellitus, hypertension, osteoporosis, former smoker, seizure disorder, vertigo who presented to hospital with chief complaint of shortness of breath / dyspnea. Patient was recently hospitalized for influenza and was discharged. patient states that she still was not feeling very well add back for further evaluation. She reports a persistent cough with sputum production along with constipation x5 days. She stated that she felt nauseated and vomited once. She also stated that she had a low-grade temp of 100.0?. Workup in the hospital included an abdomen pelvis CT which shown basilar pulmonary opacities representing pneumonia, 6.6 cm right pelvic mass likely representing enlargement of an adnexal mass seen in prior MR and ultrasound findings. Chest x-ray showed pulmonary opacities representing mild interstitial edema or respiratory bronchiolitis. Initial labs shown a white blood cell count of 13.3, platelet count 472, potassium 3.3, serum osmolarity 283, proBNP was 474, C reactive protein 15.1 Lipase was normal at 31, TSH 0.90. A UA was done on 08/17/2023 which showed 1+ protein, 1+ bacteria, otherwise negative. She also had a respiratory panel which was negative for influenza a and B, RSV, COVID. Blood cultures were obtained and are pending. EKG shows normal sinus rhythm with PVCs, rate 69, QTC 423. Patient was given Tylenol, Zofran, Lasix 40 mg IV push, azithromycin 500 mg tablet, 125 mg of Solu-Medrol, and a DuoNeb while in the ED. On examination today patient is alert and oriented x3, sitting in the chair. She denies any fever, chills, diarrhea, shortness of breath, chest pain, headache, lightheadedness, dizziness. She does report indigestion and nausea, productive cough with thin clear sputum, shortness of breath. Labs today shown white blood count down to 10.9, sodium 135, chloride 95, potassium 3.0, BNP 490. She will continue on DuoNebs, azithromycin, guaifenesin /dm syrup, and we will start her on Tessalon Perles. We will go ahead and check for MRSA as well if she does have MRSA we will start her on doxycycline as well. Review of Systems Review of Systems: All systems reviewed & are unremarkable except as noted in HPI and below Constitutional: Constitutional: Reports as per HPI and Reports no additional constitutional complaints Eyes: Eyes: Reports as per HPI and Reports no additional eye complaints ENT: Reports system reviewed and no additional complaints, except as documented and Reports as per HPI Cardiovascular: Cardiovascular: Reports as per HPI and Reports no additional cardiovascular complaints Respiratory: Respiratory: Reports as per HPI and Reports no additional respiratory complaints Gastrointestinal: Gastrointestinal: Reports as per HPI and Reports no additional gastrointestinal complaints Genitourinary: Genitourinary: Reports no additional female genitourinary complaints and Reports as per HPI Musculoskeletal: Musculoskeletal: Reports no additional musculoskeletal complaints and Reports as per HPI Integumentary/Breasts: Skin/Breast: Reports system reviewed and no additional complaints, except as docu and Reports as per HPI Neurologic: Reports system reviewed and no additional complaints, except as documented and Reports as per HPI Psychiatric: Psychiatric: Reports no additional psychiatric complaints and Reports as per HPI [facility] Past Medical History Medical History (Updated 08/18/23 @ 10:34 by Marisabel Grey, [employer]) Adnexal mass Chronic constipation COPD (chronic obstructive pulmonary disease) Depression Diabetes mellitus Essential hypertension GERD (gastroesophageal reflux disease) Hyperlipidemia Hypothyroidism (acquired) Intellectual disability Due to head trauma at age 5 wi
[2023-08-18 12:14] LABS: MRSA (PCR) NOT DETECTED (NOT DETECTE)
[2023-08-18] MEDS: BENZONATATE 100 MG CAPSULE 200 MG PO ×2 (12:32→17:05)
[2023-08-18] MEDS: LOSARTAN POTASSIUM 50 MG TABLET PO (18:06)
--- NOTE | 2023-08-18 18:11 | PC.NURSE ---
[employer] notified of elevated BP
--- NOTE | 2023-08-18 18:12 | PC.NURSE ---
Order received for 50mg Losartan and med administered to treat elevated BP
[2023-08-18] MEDS: MELATONIN 5 MG TABLET PO (19:57)
[2023-08-18] MEDS: ARIPiprazole 5 MG TABLET PO (19:57)
[2023-08-19] VITALS (8 sets, daily range): BP systolic 147–158; BP diastolic 48–56; PULSE 68–82; RESP 14–18; TEMP 36.1–36.4; O2SAT 90–99
[2023-08-19] MEDS: IPRATROPIUM 0.5 MG/ALBUTEROL SULFATE 2.5 MG AMPUL.NEB 3 ML INHALATION ×3 (00:15→12:57)
[2023-08-19] MEDS: guaiFENesin/DEXTROMETHORPHAN 5 ML UDC PO ×3 (03:30→13:10)
[2023-08-19] MEDS: LEVOTHYROXINE SODIUM 112 MCG TABLET 224 MCG BY MOUTH (05:38)
[2023-08-19] MEDS: polyethylene glycoL 3350 17 GM POWD.PACK PO (08:51)
[2023-08-19] MEDS: ENOXAPARIN 40 MG/0.4 ML SYRINGE SUB-Q (08:51)
[2023-08-19] MEDS: LOSARTAN POTASSIUM 50 MG TABLET PO (09:26)
[2023-08-19] MEDS: SERTRALINE HCL 50 MG TABLET 100 MG PO (09:26)
[2023-08-19] MEDS: VITAMIN B COMPLEX CAPSULE 1 CAP PO (09:26)
[2023-08-19] MEDS: DOCUSATE SODIUM 100 MG CAPSULE PO (09:26)
[2023-08-19] MEDS: LORATADINE 10 MG TABLET PO (09:27)
[2023-08-19] MEDS: LOVASTATIN 10 MG TABLET PO (09:27)
[2023-08-19] MEDS: carBAMazepine 200 MG TABLET PO ×2 (09:27→13:10)
[2023-08-19] MEDS: PHENYTOIN SODIUM 100 MG EXTENDED RELEASE CAP PO (09:27)
[2023-08-19] MEDS: hydrALAZINE HCL 25 MG TABLET 50 MG PO (09:27)
[2023-08-19] MEDS: amLODIPine BESYLATE 5 MG TABLET 10 MG PO (09:28)
[2023-08-19] MEDS: FAMOTIDINE 20 MG TABLET PO (09:28)
[2023-08-19] MEDS: BENZONATATE 100 MG CAPSULE 200 MG PO ×2 (09:29→13:10)
[2023-08-19] MEDS: AZITHROMYCIN 250 MG TABLET 500 MG PO (11:55)
--- NOTE | 2023-08-19 13:22 | PM.DS ---
DS: Admitting Diagnosis Discharge Date 08/19/2023 Admitting Diagnosis Atypical pneumonia, acute exacerbation of COPD, chronic constipation, diabetes mellitus, hypertension, hypothyroidism, GERD, hyperlipidemia DS: Discharge Diagnosis Discharge Diagnosis (1) Atypical pneumonia: Code(s): J18.9 - Pneumonia, unspecified organism Status: Acute (2) Acute exacerbation of chronic obstructive pulmonary disease: Code(s): J44.1 - Chronic obstructive pulmonary disease with (acute) exacerbation Status: Acute (3) Chronic constipation: Code(s): K59.09 - Other constipation Status: Acute (4) Diabetes mellitus: Code(s): E11.9 - Type 2 diabetes mellitus without complications Status: Chronic (5) HTN (hypertension): Code(s): I10 - Essential (primary) hypertension Status: Chronic (6) Hypothyroidism (acquired): Code(s): E03.9 - Hypothyroidism, unspecified Status: Chronic (7) GERD (gastroesophageal reflux disease): Code(s): K21.9 - Gastro-esophageal reflux disease without esophagitis Status: Chronic (8) Hyperlipidemia: Code(s): E78.5 - Hyperlipidemia, unspecified Status: Chronic DS: Summary Hospital Course Hospital Course: This is a 68-year-old female patient resides at [facility] who was admitted for pneumonia. Patient had recently been admitted for influenza and pneumonia but she stated that she did not feel any better after discharge so she came back to the hospital 4 days later. She was started on IV antibiotics not requiring supplemental oxygen. She also complained of chronic constipation that was worse. Patient was treated with azithromycin and DuoNebs as well as cough medication. Patient states other than cough that is still present she is feeling much better and is wanting to go home. She was most concerned about getting her IV I taken out of her hand. She also requesting work note upon discharge. Due to recurrence of pneumonia we will finish azithromycin and prescribed Levaquin of which she received 1st dose prior to discharge. Status at Discharge Cognitive/behavioral status at discharge: Awake alert oriented but continuing ask the same questions repeatedly Functional status at discharge: independent ambulation Overall status at discharge: patient is progressing back to baseline Time Spent with Patient Time attestation: Total time spent providing and/or coordinating discharge services: 35 minutes Time spent: Greater than 30 minutes Exam Narrative: General: In no acute distress, well nourished Head: atraumatic, no encephalopathy Eyes: EOMI, PERRLA, sclera clear ENT: moist mucous membranes, nasal passages clear Neck: supple, no JVD, no adenopathy, trachea midline Cardiac: Normal S1 and S2. RRR, No murmur, gallops or friction rubs, peripheral pulses intact. Respiratory: Lungs clear to auscultation in upper lobes, crackles noted to bilateral lower lobes, currently on room air Gastrointestinal: soft, non-distended, non-tender, normoactive bowel sounds. Patient had 3 BM's since admission : voiding without difficulty. Extremities: moves all extremities well, no edema, good ROM, strength 5/5 Skin: clean, dry, intact. No wounds or lesions. Neuro: Alert and oriented x4, cranial nerves intact, no neuro deficits. Psych: normal mood, normal affect, interactive Discharge Plan Discharge Attending physician on discharge: Jasper Russell Discharging Clinician: Néstor Loza Anticipated Discharge Date/Time: 08/19/23 13:41 Patient Disposition: Home, Self-Care Activity: as tolerated Diet: low sodium Patient Instructions: Antibiotic Form, Azithromycin (By mouth), Fall Prevention for Older Adults (GEN), COPD (Chronic Obstructive Pulmonary Disease) (DC) Stand Alone Forms: General Discharge Information Follow-up/Referrals: Primary care doctor [Other] - 1 week (please call and set up a follow up appointment
--- NOTE | 2023-08-19 14:54 | PC.NURSE ---
Pt did not get Levaquin dose. Not verified when pt ride came to pick her up.
--- NOTE | 2023-08-19 14:55 | PC.NURSE ---
[facility] Pt given Verbal instructions regarding her medications and follow up care with PCP. Transport provided by [facility]. Blue folder with discharge instructions given to the automatic chief to give to the medical staff at [facility] to review it.
--- NOTE | 2023-08-20 09:37 | PC.NURSE ---
Discharge call back completed, reports cough improved, no questons regarding dc instructions
[2023-08-20 13:06] LABS: Glucose Point of Care 91 mg/dl (65-105)
[2023-08-20 13:06] LABS: Glucose Point of Care 121 mg/dl (65-105)
[2023-08-20 13:06] LABS: Glucose Point of Care 93 mg/dl (65-105)
[2023-08-20 13:06] LABS: Glucose Point of Care 101 mg/dl (65-105)
[2023-08-20 13:06] LABS: Glucose Point of Care 98 mg/dl (65-105)
[2023-08-20 13:06] LABS: Glucose Point of Care 91 mg/dl (65-105)
== END 2023-08-19 14:40 | disposition home or self-care (01) ==
LOC: CHSED 18:25 → CHS2ND 20:07
PROVIDERS: Nurse Practitioner Acute Care; Admitting Provider Internal Medicine; Emergency Provider Family Medicine; Visit Provider Internal Medicine
DX: J44.1 Chronic obstructive pulmonary disease with (acute) exacerbation (principal); J44.0 Chronic obstructive pulmonary disease with (acute) lower respiratory infection; J18.9 Pneumonia, unspecified organism; K59.09 Other constipation; E11.9 Type 2 diabetes mellitus without complications; I10 Essential (primary) hypertension; E03.9 Hypothyroidism, unspecified; K21.9 Gastro-esophageal reflux disease without esophagitis; E78.5 Hyperlipidemia, unspecified; R19.00 Intra-abdominal and pelvic swelling, mass and lump, unspecified site; M81.0 Age-related osteoporosis without current pathological fracture; F32.A Depression, unspecified; Z20.822 Contact with and (suspected) exposure to COVID-19; G40.909 Epilepsy, unspecified, not intractable, without status epilepticus; R42 Dizziness and giddiness; E55.9 Vitamin D deficiency, unspecified; F79 Unspecified intellectual disabilities; G93.89 Other specified disorders of brain; Z87.820 Personal history of traumatic brain injury; Z87.09 Personal history of other diseases of the respiratory system; Z87.891 Personal history of nicotine dependence; Z79.51 Long term (current) use of inhaled steroids; Z79.899 Other long term (current) drug therapy
CPT/HCPCS: 36415; 71045; 74177; 80053; 81001; 82948; 83605; 83690; 83735; 83880; 84443; 84484; 85025; 85610; 86140; 87040; 87637; 87641; 93005; 94640; 96372; 96374; 96375; 99285; A9270; G0378; J1650; J1940; J2405; J2919; Q9967

== ENCOUNTER 2023-08-26 09:56 | Outpatient (CLI) | payer OTHER, SELFPAY ==
--- NOTE | ~2023-08-26 | XR_ITS ---
EXAMINATION: XR chest 2V DATE: 08/26/2023 10:26 INDICATION: Cough. Dyspnea. TECHNIQUE: Frontal and lateral views of the chest were obtained. COMPARISON: Chest single view 08/17/2023 FINDINGS: There is mild atelectasis in lingula. No pleural effusion or pneumothorax. The heart size i s normal. IMPRESSION: 1. Mild atelectasis in lingula. Reviewed, dictated and finalized at location A.
[2023-08-26 10:14] LABS: Basophils Absolute Auto 0.07 K/mm3 (0.00-0.10); Basophils Percent Auto 0.9 % (0.0-1.0); Eosinophils Absolute Auto 0.11 K/mm3 (0.02-0.50); Eosinophils Percent Auto 1.4 % (1.0-6.0); Hematocrit 40.9 % (35.0-42.0); Hemoglobin 12.8 g/dL (11.7-13.8); Immature Granulocyte Absolute 0.08 K/mm3 (0.00-0.00); Lymphocytes Absolute Auto 1.27 K/mm3 (1.10-4.50); Lymphocytes Percent Auto 16.5 % (18.0-42.0); Mean Corpuscular HGB Conc 31.3 g/dL (32-36); Mean Corpuscular Volume 92.5 fL (78.0-102.0); Mean Platelet Volume 8.7 fl (9.2-11.8); Monocytes Percent Auto 7.8 % (2.0-11.0); Neutrophils Absolute Auto 5.57 K/mm3 (1.70-7.20); Neutrophils Percent Auto 72.4 % (50.0-70.0); Platelet Count Result 337 K/mm3 (150-420); Red Blood Count 4.42 M/mm3 (4.20-5.40); Red Cell Distribution Width 13.9 % (11.6-14.4); White Blood Count 7.7 K/mm3 (4.8-10.8)
[2023-08-26 10:38] LABS: Alanine Aminotransferase 29 U/L (14-59); Albumin Level 3.1 g/dL (3.4-5.0); Alkaline Phosphatase 79 U/L (46-116); Anion Gap 5 mmol/L (4-12); Aspartate Amino Transferase 27 U/L (15-37); Bilirubin,Total 0.3 mg/dL (0.00-1.00); Blood Urea Nitrogen 9 mg/dL (7-18); Carbon Dioxide 31 mmol/L (21-32); Chloride 104 mmol/L (98-108); Estimated Glomerular Filt Rate > 60; Glucose 94 mg/dL (70-99); NT Pro B Type Natriuretic Pept 150 pg/mL (0-125); Osmolality Calculated 288 mOsm/kg (285-295); Potassium 4.2 mmol/L (3.5-5.1); Sodium 140 mmol/L (136-145); Total Protein 7.6 g/dL (6.4-8.2)
== END 2023-08-26 09:57 | disposition home or self-care (01) ==
PROVIDERS: PCP Internal Medicine; Visit Provider Internal Medicine
DX: R05.9 Cough, unspecified (principal); R06.00 Dyspnea, unspecified; E87.6 Hypokalemia
CPT/HCPCS: 36415; 71046; 80053; 83880; 85025

== ENCOUNTER 2023-09-04 07:54 | Outpatient (CLI) | payer OTHER, SELFPAY ==
--- NOTE | ~2023-09-04 | XR_ITS ---
EXAMINATION: XR chest 2V DATE: 09/04/2023 08:11 INDICATION: Cough. TECHNIQUE: Frontal and lateral views of the chest were obtained. COMPARISON: Chest 2 views 08/26/2023 FINDINGS: There is no pneumonia, pleural effusion, or pneumothorax. The heart size is normal. IMPRESSION: 1. No acute cardiopulmonary disease. Reviewed, dictated and finalized at location A.
== END 2023-09-04 07:55 | disposition home or self-care (01) ==
LOC: CHSIMG 07:55
PROVIDERS: PCP Internal Medicine; Visit Provider Internal Medicine
DX: R05.9 Cough, unspecified (principal)
CPT/HCPCS: 71046

== ENCOUNTER 2024-03-08 12:06 | Outpatient (CLI) | payer OTHER, SELFPAY ==
[2024-03-08 12:34] LABS: Hematocrit 39.5 % (35.0-42.0); Hemoglobin 12.9 g/dL (11.7-13.8); Mean Corpuscular HGB Conc 32.7 g/dL (32-36); Mean Corpuscular Hemoglobin 30.1 pg (27.0-31.0); Mean Corpuscular Volume 92.3 fL (78.0-102.0); Mean Platelet Volume 8.8 fl (9.2-11.8); Platelet Count Result 261 K/mm3 (150-420); Red Blood Count 4.28 M/mm3 (4.20-5.40); Red Cell Distribution Width 13.6 % (11.6-14.4); White Blood Count 6.7 K/mm3 (4.8-10.8)
[2024-03-08 12:54] LABS: Add Urine Microscopic? YES; Appearance Urine Clear (Clear); Bilirubin Urine Negative (Negative); Blood Urine Negative (Negative); Color Urine Light Yellow (Yellow); Glucose Urine UA Negative (Negative); Ketones Urine Negative (Negative); Leukocyte Esterase Ur Trace (Negative); Nitrate Urine Negative (Negative); Protein Urine Negative (Negative); Urobilinogen Urine 0.2 mg/dL (0.2-1.0)
[2024-03-08 13:02] LABS: Alanine Aminotransferase 36 U/L (14-59); Albumin Level 3.5 g/dL (3.4-5.0); Alkaline Phosphatase 87 U/L (46-116); Anion Gap 6 mmol/L (4-12); Aspartate Amino Transferase 24 U/L (15-37); Bilirubin,Total 0.3 mg/dL (0.00-1.00); Blood Urea Nitrogen 11 mg/dL (7-18); Calcium 10.4 mg/dL (8.5-10.1); Carbon Dioxide 29 mmol/L (21-32); Chloride 98 mmol/L (98-108); Estimated Glomerular Filt Rate > 60; Free T4 Free Thyroxine 0.89 ng/dL (0.76-1.46); Glucose 95 mg/dL (70-99); Osmolality Calculated 275 mOsm/kg (285-295); Potassium 5.2 mmol/L (3.5-5.1); Sodium 133 mmol/L (136-145); Thyroid Stimulating Hormone 2.69 uIU/mL (0.36-3.74)
[2024-03-08 13:14] LABS: Bacteria Urine Trace /hpf; RBC Urine None seen /hpf (0-2); Squamous Epithelial Cell Urine Few /hpf (Few); WBC Urine 0-3 /hpf (0-3)
== END 2024-03-08 12:07 | disposition home or self-care (01) ==
PROVIDERS: PCP Internal Medicine; Visit Provider Nurse Practitioner Family
DX: M79.89 Other specified soft tissue disorders (principal); I10 Essential (primary) hypertension
CPT/HCPCS: 36415; 80053; 81001; 84439; 84443; 85027

== ENCOUNTER 2024-06-28 09:46 | Emergency (ER) | payer OTHER, SELFPAY ==
[2024-06-28 09:53] VITALS: BP 157/55; PULSE 54; RESP 20; TEMP 36.7; O2SAT 97
--- NOTE | 2024-06-28 10:01 | ED.SKABFB ---
HPI - Skin/Abscess/Foreign Bdy General Chief complaint: Skin/Abscess/Foreign Body Stated complaint: rash Time Seen by Provider: 06/28/24 09:58 Source: patient Mode of arrival: ambulatory Limitations: no limitations History of Present Illness HPI narrative: patient is a 69-year-old female from detention here for right lower extremity redness and hot lymph noted today in the shower. No pain. She was mostly worried about infection of the leg. MD complaint: rash and discoloration Onset (ago): day(s) ( One) Tetanus up to date: yes ( 2020) Location: RLE ( lower leg /ankle) Severity: moderate Severity scale (1-10): 2 Quality: aching Pain Consistency: now resolved Relieving factors: none Exacerbating factors: none Context: other ( patient does not remember any situation that started the rash; she has a rash on the right lower extremity) Associated symptoms: denies other symptoms Treatments prior to arrival: none Related Data Home Medications ?Medication ?Instructions ?Recorded ?Confirmed ?Last Taken ?Type acetaminophen 325 mg tablet 650 mg PO Q4H PRN Pain 09/06/20 08/17/23 Unknown History albuterol sulfate 90 mcg/actuation 2 puff inhalation Q4-6H PRN 09/06/20 08/17/23 Unknown History aerosol inhaler Wheezing amlodipine 10 mg tablet 10 mg PO DAILY 09/06/20 08/17/23 Unknown History carbamazepine 100 mg chewable 100 mg PO TID 09/06/20 08/17/23 Unknown History tablet ergocalciferol (vitamin D2) 1,250 50,000 unit PO WEEKLY 09/06/20 08/17/23 Unknown History mcg (50,000 unit) capsule famotidine 20 mg tablet 20 mg PO DAILY 09/06/20 08/17/23 Unknown History levothyroxine 112 mcg tablet See Rx Instructions .Route .COMPLEX 09/06/20 08/17/23 Unknown History phenobarbital 64.8 mg tablet 64.8 mg PO DAILY 09/06/20 08/17/23 Unknown History sertraline 100 mg tablet 100 mg PO DAILY 09/06/20 08/17/23 Unknown History vitamin B complex (B 1 tablet PO DAILY 09/06/20 08/17/23 Unknown History Complex-Vitamin B12 tablet) alendronate 70 mg tablet 70 mg PO WEEKLY 04/07/21 08/17/23 Unknown History docusate sodium 200 mg PO DAILY PRN Constipation 04/07/21 08/17/23 Unknown History hydralazine 50 mg tablet 50 mg PO Q12H 04/07/21 08/17/23 Unknown History lovastatin 10 mg tablet 10 mg PO DAILY 04/07/21 08/17/23 Unknown History phenytoin sodium extended 100 mg 100 mg PO BID 04/07/21 08/17/23 Unknown History capsule aripiprazole 5 mg tablet 5 mg PO HS 08/15/22 08/17/23 Unknown History cetirizine 10 mg tablet 10 mg PO DAILY 08/10/23 08/17/23 Unknown History acetaminophen 500 mg tablet 1,000 mg PO HS 08/17/23 08/17/23 Unknown History aluminum-mag hydroxide-simethicone 30 ml PO QID PRN UPSET STOMACH 08/17/23 08/17/23 Unknown History 200 mg-200 mg-20 mg/5 mL oral susp (Bety-Lanta) bismuth subsalicylate 262 mg/15 mL 525 mg PO DAILY PRN Heartburn 08/17/23 08/17/23 Unknown History oral suspension (Stomach Relief) carbamazepine 200 mg tablet 200 mg PO TID 08/17/23 08/17/23 Unknown History clotrimazole 1 % topical cream 1 applic topical TID 08/17/23 08/17/23 Unknown History fluticasone propionate 50 2 spray intranasal DAILY 08/17/23 08/17/23 Unknown History mcg/actuation nasal spray,suspension melatonin 5 mg tablet 5 mg PO HS 08/17/23 08/17/23 Unknown History nystatin 100,000 unit/gram topical 1 applic topical BID 08/17/23 08/17/23 Unknown History cream nystatin 100,000 unit/gram topical 1 applic topical BID 08/17/23 08/17/23 Unknown History powder (Nystop) sodium chloride 1,000 mg soluble 1,000 mg PO DAILY 08/17/23 08/17/23 Unknown History tablet Allergies Allergy/AdvReac Type Severity Reaction Status Date / Time aspirin Allergy Unknown Verified 06/28/24 09:46 Penicillins Allergy Unknown Verified 06/28/24 09:46 Review of Systems Review of Systems: All systems reviewed & are unremarkable except as noted in HPI and below Constitutional: Constitutional: Reports no additional constitutional complaints Eyes: Eyes: Reports no additional eye complaints ENT: Reports system reviewed and no additional complaints, except as documented Cardiovascular: Cardiovascular: Reports no additional cardiovascular complaints Respiratory: Respiratory: Reports no additional respiratory complaints Gastrointestinal: Gastrointestinal: Reports no additional gastrointestinal complaints Genitourinary: Genitourinary: Reports no additional female genitourinary complaints Musculoskeletal: Musculoskeletal: Reports no additional musculoskeletal complaints Integumentary/Breasts: Skin/Breast: Reports system reviewed and no additional complaints, except as docu Neurologic: Reports system reviewed and no additional complaints, except as documented Psychiatric: Psychiatric: Reports no additional psychiatric complaints Endocrine: Endocrine: Reports no additional endocrine complaints Hematologic/Lymphatic: Hematologic/Lymphatic: Reports no additional hematologic/lymphatic complaints Allergic/Immunologic: Allergic/Immunologic: Reports no additional allergic/immunologic complaints PMFSH Past Medical History Medical History Adnexal mass Diabetes mellitus GERD (gastroesophageal reflux disease) COPD (chronic obstructive pulmonary disease) Vitamin D deficiency Chronic constipation Osteopenia Depression Seizure disorder Vertigo Hyperlipidemia Essential hypertension Intellectual disability 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 She is on disability. She used to smoke 1 pack of cigarettes per day for 33 years but quit smoking in 2007. She denies any history of alcohol or drug use. She has 1 daughter that was raised by her sister. The patient is not in contact with her daughter. Primary care physician: Dr. Almazan Code status: Full code Surrogate decision maker: None Smoking status: Never smoker Second hand tobacco smoke exposure: Yes Smoking end date: 04/27/16 Alcohol intake: never Substance use: never Substance use type: does not use Do You Feel Safe in your Home?: Yes Lack of Transportation: No Lack of Food: Never True Current Housing: I Have Housing Concerned About Future Housing: No Difficulty Paying Gas/Electric Bills: No Difficulty Paying for Meds: No Currently Unemployed: No Education: High School Diploma/GED Difficulty w/ Childcare or Family Care: No Spiritual care concerns: No Exam Const: General: healthy appearing Nutritional Appearance: well nourished Orientation/consciousness: patient oriented x3 Limitations: no limitations HENMT: Head: normal to inspection Ears: external ears normal Face/Nose/Sinus: Normal external nose present Eyes: Conjunctivae: conjunctivae normal Pupils: Equal, round and reactive pupils present EOM: EOMs intact bilaterally Neck: Neck: normal visual inspection Chest: Chest palpation & inspection: normal inspection of the chest Resp: Effort & Inspection: normal respiratory effort and not labored Auscultation: clear to auscultation bilaterally and no crackles Cardio: Rate: regular rate Rhythm: regular rhythm Heart sounds: Murmur heart sound present GI: Inspection: non-distended Auscultation: normal bowel sounds and bowel sounds present : General: Yes bladder normal to palpation Back/Spine/Pelvis: Back: no CVA tenderness Skin: General skin exam: No normal color Rashes: rash noted Wounds: no wounds Other: right lower extremity has a circumferential lower leg near ankle erythema with 1+ pitting edema bilateral (chronic) rash with some irregularity proximally; distal neural and vascular intact Neuro: General: patient oriented x3 Cranial nerves: Yes Nystagmus not present Speech: normal speech Extrem: General: normal to inspection Psych: Mental Status: mental status grossly normal Affect: normal affect Attitude: cooperative Course Vital Signs Vital signs: Vital Signs Temperature 36.7 C 06/28/24 09:53 Pulse Rate 54 L 06/28/24 09:53 Respiratory Rate 20 06/28/24 09:53 Blood Pressure 157/55 H 06/28/24 09:53 Pulse Oximetry 97 06/28/24 09:53 Oxygen Delivery Room Air 06/28/24 09:53 Temperature 36.7 C 06/28/24 09:53 Pulse Rate 54 L 06/28/24 09:53 Respiratory Rate 20 06/28/24 09:53 Blood Pressure 157/55 H 06/28/24 09:53 Pulse Oximetry 97 06/28/24 09:53 Oxygen Delivery Room Air 06/28/24 09:53 MDM - Skin/Abscess/Foreign Bdy MDM Narrative Medical decision making narrative: patient is a 69-year-old female with a right lower extremity rash of cellulitis. We will go ahead and use antibiotics at this time. Clindamycin. Discharge Plan Discharge Clinical Impression: Cellulitis and abscess of right leg Patient Disposition: Home, Self-Care Condition: Stable Instructions: Antibiotic Form, Cellulitis (ED) Patient Language: Swedish Prescriptions: New clindamycin HCl 300 mg capsule 300 mg PO TID 10 Days Qty: 30 0RF No Action acetaminophen 325 mg tablet 650 mg PO Q4H PRN (Reason: Pain) sertraline 100 mg tablet 100 mg PO DAILY famotidine 20 mg tablet 20 mg PO DAILY amlodipine 10 mg tablet 10 mg PO DAILY carbamazepine 100 mg tablet,chewable 100 mg PO TID phenobarbital 64.8 mg tablet 64.8 mg PO DAILY vitamin B complex [B Complex-Vitamin B12] Tablet 1 tablet PO DAILY ergocalciferol (vitamin D2) 1,250 mcg (50,000 unit) capsule 50,000 unit PO WEEKLY Rx Instructions: pt. takes on Fridays albuterol sulfate 90 mcg/actuation HFA aerosol inhaler 2 puff INHALATION Q4-6H PRN (Reason: Wheezing) levothyroxine 112 mcg tablet See Rx Instructions .ROUTE .COMPLEX Rx Instructions: PT TAKES 2 TABLETS (224MCG) DAILY EVERY DAY OF THE WEEK, EXCEPT ON SUNDAYS TAKES ONLY 1 TABLET (112MCG) DAILY alendronate 70 mg tablet 70 mg PO WEEKLY Rx Instructions: pt takes on saturdays phenytoin sodium extended 100 mg capsule 100 mg PO BID lovastatin 10 mg tablet 10 mg PO DAILY hydralazine 50 mg tablet 50 mg PO Q12H docusate sodium 200 mg PO DAILY PRN (Reason: Constipation) aripiprazole 5 mg tablet 5 mg PO HS cetirizine 10 mg Tablet 10 mg PO DAILY polyethylene glycol 3350 [Miralax] 17 gram Powder In Packet 17 g PO QAM Qty: 350 0RF ciprofloxacin HCl 0.3 % Drops 2 drp EACH EYE Q4HR Qty: 5 0RF acetaminophen 500 mg tablet 1,000 mg PO HS carbamazepine 200 mg tablet 200 mg PO TID bismuth subsalicylate [Stomach Relief] 262 mg/15 mL suspension 525 mg PO DAILY PRN (Reason: Heartburn) nystatin 100,000 unit/gram cream 1 applic TOPICAL BID Rx Instructions: UNDER BREAST AND GROIN alum-mag hydroxide-simeth [Bety-Lanta] 200-200-20 mg/5 mL Suspension 30 ml PO QID PRN (Reason: UPSET STOMACH) Rx Instructions: administer between meals and at bedtime nystatin [Nystop] 100,000 unit/gram powder 1 applic TOPICAL BID Rx Instructions: UNDER BREAST AND GROIN fluticasone propionate 50 mcg/actuation [place],Suspension 2 spray INTRANASAL DAILY Rx Instructions: administer into each nostril clotrimazole 1 % cream 1 applic TOPICAL TID Rx Instructions: TO FEET sodium chloride 1,000 mg tablet,soluble 1,000 mg PO DAILY melatonin 5 mg tablet 5 mg PO HS azithromycin [Zithromax] 250 mg Tablet 500 mg PO DAILY Qty: 3 0RF benzonatate 100 mg Capsule 200 mg PO TID Qty: 60 0RF losartan [Cozaar] 50 mg Tablet 50 mg PO DAILY Qty: 30 0RF bisacodyl [Laxative (bisacodyl)] 5 mg Tablet,Delayed Release (Dr/Ec) 5 mg PO DAILY PRN (Reason: Constipation) Qty: 30 0RF levofloxacin 750 mg tablet 750 mg PO DAILY 7 Days Qty: 5 0RF dextromethorphan-guaifenesin [Mucinex DM] 60-1,200 mg tablet extended release 12 hr 1 tablet PO Q12H Qty: 30 0RF Follow-up/Referrals: Carroll Almazan MD [Primary Care Provider] - Time of Disposition: 10:14
[2024-06-28] MEDS: CLINDAMYCIN HCL 150 MG CAP 300 MG PO (10:11)
--- NOTE | 2024-06-28 10:22 | PC.NURSE ---
REPORT CALLED TO [facility], THEY ARE AWARE OF PT'S FIST DOSE IN ER AND RX FOR CLINDAMYCIN WAS SENT TO PHARMACY.
--- NOTE | 2024-06-28 11:21 | PC.NURSE ---
NO CHANGE IN STATUS. PT IS AWAITING LAB REDRAW AND LUNCH AT THIS TIME. WILL CONTINUE TO MONITOR.
== END 2024-06-28 10:35 | disposition home or self-care (01) ==
PROVIDERS: Emergency Provider Emergency Medicine; PCP Internal Medicine
DX: L03.115 Cellulitis of right lower limb (principal); E11.9 Type 2 diabetes mellitus without complications; E78.5 Hyperlipidemia, unspecified; J44.9 Chronic obstructive pulmonary disease, unspecified; I10 Essential (primary) hypertension
CPT/HCPCS: 99283; A9270

== ENCOUNTER 2025-02-08 09:43 | Outpatient (CLI) | payer OTHER, SELFPAY ==
--- NOTE | ~2025-02-08 | NM_ITS ---
EXAMINATION: NM parathyroid w imaging DATE: 02/09/2025 09:23 INDICATION: Hyperparathyroidism. TECHNIQUE: 20 mCi Tc99m sestamibi was administered intravenously. Anterior images of the neck were obtained immediately and at 3 hours. SPECT images of the neck were obtained. COMPARISON: None. FINDINGS: There is no focus of persistent activity in the area of the thyroid or mediastinum to suggest parathyroid adenoma. IMPRESSION: 1. No evidence of a parathyroid adenoma. Reviewed, dictated and finalized at location E.
--- OUTSIDE RECORDS SUMMARY | 2025-02-08 11:06 | XMS_ITS | Clinical Summary ---
Author Organization [facility] Address [address] [address] Phone Care Team Providers Care Computer System Validation Specialist Name Role Phone Carroll Almazan MD Primary Care Provider [phone] Allergies Active Allergy Reactions Criticality Noted Date Comments Penicillins Unknown 01/05/2019 Medications sertraline (ZOLOFT) 100 MG Tablet Take 50 mg by mouth daily. 150mg Active ibuprofen (MOTRIN) 600 MG Tablet Take 600 mg by mouth every 8 hours. Active carBAMazepine (TEGRETOL) 200 MG Tablet Take 200 mg by mouth 2 times daily (with meals). Active LORazepam (ATIVAN) 1 MG Tablet Take 1 mg by mouth 3 times daily as needed. Active PHENobarbital (LUMINAL) 64.8 MG Tablet Take by mouth 2 times daily. Active levothyroxine (LEVOXYL) 112 MCG Tablet Take 112 mcg by mouth daily. Active docusate sodium (COLACE) 100 MG Capsule Take 100 mg by mouth 2 times daily. Active Loratadine (CLARITIN) 10 MG Capsule Take by mouth. Active Magnesium Hydroxide (MILK OF MAGNESIA PO) Take by mouth. Active raNITIdine HCl 150 MG Capsule Take by mouth. Active Polyvinyl Alcohol-Povidon e (REFRESH OP) Place in affected eye(s). Active lovastatin (MEVACOR) 20 MG Tablet Take 20 mg by mouth every evening. Active potassium chloride (KLOR-CON) 20 MEQ Pack Take 20 mEq by mouth 2 times daily. Active QUEtiapine Fumarate 300 MG Tablet Take 300 mg by mouth every evening. Active carBAMazepine (CARBATROL) 100 MG CAPSULE SR 12 HR Take 200 mg by mouth 2 times daily (with meals). Active diphenhydrAMINE (BENADRYL) 25 MG Capsule Take 25 mg by mouth every 6 hours as needed. Active Cyanocobalamin (B-12 PO) Take by mouth. Active amLODIPine (NORVASC) 10 MG Tablet Take 10 mg by mouth daily. Active lactulose (CHRONULAC) 10 GM/15ML Solution Take 30 mL by mouth 4 times daily. Active Ergocalciferol (VITAMIN D2 PO) Take by mouth. Active famotidine (PEPCID) 20 MG Tablet Take 20 mg by mouth 2 times daily. Active linaclotide (LINZESS) 145 MCG Capsule Take by mouth every morning (before breakfast). Active alendronate (Fosamax) 70 MG Tablet Take 70 mg by mouth every 7 days. Active clotrimazole (LOTRIMIN) 1 % Cream 04/04/2021 Active hydrALAZINE 50 MG Tablet 03/27/2021 Active loratadine (CLARITIN) 10 MG Tablet 03/27/2021 Active Lovastatin 10 MG Tablet 03/27/2021 Active nystatin 275623 UNIT/GM Powder 04/08/2021 Acti ve Active Problems Problem Noted Date Diagnosed Date CHEN (obstructive sleep apnea) 01/08/2021 Gastroesophageal reflux disease without esophagi tis 01/08/2021 Non morbid obesity 01/08/2021 Social History Tobacco Use Types Packs/Day Years Used Date Smoking Tobacco: Former Cigarettes Q uit: 04/27/2016 Smokeless Tobacco: Never Alcohol Use Standard Drinks/Week Comments Never 0 (1 standard drink = 0.6 oz pur e alcohol) AUDIT-C Answer Date Recorded Frequency of Alcohol Consumption Never 01/11/2019 Average Number of Drinks Not on file 019 Frequency of Binge Drinking Not on file 12/26 Comments No Sex and Gender Information Value Date Recorded Sex Assigned at Not on file Legal Sex Female 1:26 PM CDT Gender Identity Not on file Sexual Orientation Not on file Last Filed Vital Signs Vital Sign Reading Time Taken Comments Blood Pressure 134/80 04/12/2021 2:34 PM BROKERAGE PURCHASE AND SALE CLERK Pulse 56 04/12/2021 2:34 PM BROKERAGE PURCHASE AND SALE CLERK Temperature 35.8 C (96.4 F) 04/12/2021 2:34 PM BROKERAGE PURCHASE AND SALE CLERK Respiratory Rate 18 04/12/2021 2:34 PM BROKERAGE PURCHASE AND SALE CLERK Oxygen Saturation 97% 04/12/2021 2:34 PM BROKERAGE PURCHASE AND SALE CLERK Inhaled Oxygen Concentration - - Weight 72.6 kg (160 lb) 04/12/2021 2:34 PM BROKERAGE PURCHASE AND SALE CLERK Height 152.4 cm (5') 04/12/2021 2:34 PM BROKERAGE PURCHASE AND SALE CLERK Body Mass Index 31.25 04/12/2021 2:34 PM BROKERAGE PURCHASE AND SALE CLERK Plan of Treatment Health Maintenance Due Date Last Done Comments Hepatitis C Virus (HCV) Screening 1955 Cologuard 1998 Colonoscopy 1998 Colorectal Cancer Screening 1998 Immunochemical Fecal Occult Blood 1998 Pneumococcal Immunization (50+ years) (1 of 1 - PCV) 2003 Zoster Immunization (1 of 2) 2003 Influenza Immunization (#1) 12/26/202401/25, 02/09/2018, 02/05/2017, Additional history exists SARS-COV-2 Immunization ( season) 2024 04/24/2021, 07/05/2020, 06/15/2020 Respiratory Syncytial Virus (RSV) Immunization (Adult) (1 - 1-dose 75+ series) 02/12/2028 DTaP/Tdap/Td Immunization Discontinued 09/06/2020 TdaP Immunization Completed 09/06/2020 Hepatitis B Immunization Aged Out No longer eligible based on patient's age to complete this topic Human Papillomavirus (HPV) Immunization Aged Out No longer eligible based on patient's age to complete this topic Meningococcal Immunization (ACWY) Aged Out No longer eligible based on patient's age to complete this topic Rotavirus Immunization Aged Out No lo nger eligible based on patient's age to complete this topic Insurance MEDICAID [employer] Care Teams Computer System Validation Specialist Relationship Specialty Start Date End Date Carroll Almazan MD [address] [place] [address] PCP - General Internal Medicine 09/16/18
--- OUTSIDE RECORDS SUMMARY | 2025-02-08 11:06 | XMS_ITS | Patient Health Record ---
Author Organization [facility] Address [address] [place] [address] Care Team Providers Care Drier Feeder Name Role Phone Kayley Downey Unavailable [phone] Reason For Referral No Information Medications Medication SIG (Take, Route, Frequency, Duration) Notes Start Date End Date Status Nitrofurantoin Monohyd Macro 100 MG Capsule Oral 07/18/2022 Active Melatonin 3 MG Tablet Oral 07/18/2022 Active Alendronate Sodium 70 MG Tablet Oral 07/18/2022 Active Banophen 25 MG Capsule Oral 07/18/2022 Active Levothyroxine Sodium 112 MCG Tablet Oral 07/18/2022 Active carBAMazepine 100 MG Tablet Chewable Oral 07/18/2022 Active Famotidine 20 MG Tablet Oral 07/18/2022 Active Lovastatin 20 MG Tablet Oral 07/18/2022 Active Ranitidine HCl 150 MG Tablet Oral 07/18/2022 Active Phenytoin Sodium Extended 100 MG Capsule Oral 07/18/2022 Active Fluconazole 100 MG Tablet Oral 07/18/2022 Active Ergocalciferol 1.25 MG (16625 UT) Capsule Oral 07/18/2022 Active Lactulose 10 GM/15ML Solution Oral 07/18/2022 Active amLODIPine Besylate 10 MG Tablet Oral 07/18/2022 Active Potassium Chloride Delmis ER 20 MEQ Tablet Extended Release Oral 07/18/2022 Active Furosemide 20 MG Tablet Oral 07/18/2022 Active Clotrimazole 1% Cream External 07/18/2022 Active ARIPiprazole 5 MG Tablet Oral 07/18/2022 Active Acetaminophen Extra Strength 500 MG Tablet Oral 07/18/2022 Activ e Nystatin 618286 UNIT/GM Cream External 07/18/2022 Active Docusate Sodium 100 MG Capsule Oral 07/18/2022 Active Sertraline HCl 100 MG Tablet Oral 07/18/2022 Active Loratadine 10 MG Tablet Oral 07/18/2022 Active Lovastatin 10 MG Tablet Oral 07/18/2022 Active Robafen 100 mg/5 mL Syrup Oral 07/18/2022 Active PHENobarbital 64.8 MG Tablet Oral 07/18/2022 Active Ibuprofen 600 MG Tablet Oral 07/18/2022 Active Phenytoin 50 MG Tablet Chewable Oral 07/18/2022 Active hydrALAZINE HCl 50 MG Tablet Oral 07/18/2022 Active Fluticasone Propionate Diskus 50 MCG/ACT Aerosol Powder Breath Activated Inhalation *Reorder from [employer] for eRx and Interaction Alerts* 07/18/2022 Active carBAMazepine 200 MG Tablet Oral 07/18/2022 Active Nystop 261675 UNIT/GM Powder External 07/18/2022 Active Acetaminophen 325 MG Tablet Oral 07/18/2022 Active Abilify 5 MG Tablet Oral 07/18/2022 Active Immunizations Vaccine Route Administration Date Status Comme nts Influenza virus vaccine, quadrivalent (IIV4), split virus, 0.25 mL dosage Unknown 02/09/2018 Administered Social History Social History Additional Details Category Social Info Options Details Migrated Social History Migrated Social History Alcohol Intake: None 05/11/2018,Tobacco Years: Former smoker 05/24/2021,Smoking Status: 05/24/2021 Plan Of Treatment No Information Insurance Providers Payer Name Payer Address Payer Phone Subscriber Number Group Number Insured Name Patient Relationship to Insured Coverage Start Date Coverage End Date [facility] Plan Of [place] - Dos On Or After 20 [address] [place] [address] [id number] TALI GOMEZ Self - patient is the insured
== END 2025-02-08 09:44 | disposition home or self-care (01) ==
PROVIDERS: PCP Internal Medicine; Visit Provider Internal Medicine
DX: M81.0 Age-related osteoporosis without current pathological fracture (principal); E21.3 Hyperparathyroidism, unspecified
CPT/HCPCS: 78070; A9500

== ENCOUNTER 2025-02-22 11:46 | Outpatient (CLI) | payer OTHER, SELFPAY ==
--- NOTE | ~2025-02-22 | MM_ITS ---
EXAMINATION: MM screening antonio BI w eli HISTORY: Screening TECHNIQUE: Craniocaudal and mediolateral oblique 3-D tomosynthesis images were obtained and synthetic 2-D images were generated. CAD analysis was submitted and interpreted. COMPARISON: Comparison to multiple prior studies sequentially, with oldest reviewed study dated 11/05/2020. BREAST PARENCHYMAL COMPOSITION: There are scattered areas of fibroglandular density. FINDINGS: There is no evidence of suspicious mass, calcification, or architectural distortion to suggest malignancy in either breast. There has been no suspicious interval change. IMPRESSION: 1. No mammographic evidence of malignancy. 2. Recommend routine screening mammography in one year. BI-RADS Category 1: Negative Reviewed, dictated and finalized at location B.
--- NOTE | ~2025-02-22 | DEXA_ITS ---
Bone Density Report Name: TALI GOMEZ Age: 70 Sex: Female Ethnicity: White Date of : 1955 Indication: postmenopausal; screening for osteoporosis; height loss; Referring Provider: Carroll Almazan Study: Bone densitometry was performed. Exam Date: February 22, 2025 Accession number: [id number] Bone Density: Region BMD T-score Z-score Classification AP Spine(L1, L2, L4) 0.905 -1.2 1.0 Osteopenia Femoral Neck (Left) 0.582 -2.4 -0.5 Osteopenia Total Hip (Left) 0.822 -1.0 0.6 Normal Femoral Neck (Right) 0.563 -2.6 -0.7 Osteoporosis Total Hip (Right) 0.774 -1.4 0.2 Osteopenia Femoral Neck Mean 0.572 -2.5 -0.6 Osteoporosis Total Hip Mean 0.798 -1.2 0.4 Osteopenia World Health Organization criteria for BMD impression classify patients as: Normal (T-score at or above -1.0), Osteopenia (T-score between -1.0 and -2.5), or Osteoporosis (T-score at or below -2.5). 10-year Fracture Risk: FRAX not reported because: Some T-score for Spine Total or Hip Total or Femoral Neck at or below -2.5 Clinical Information Provided by Patient: Has used the following medications: Vitamin D, Calcium Patient maximum height was 60 Menopause Age: 48 No regular weight bearing exercise Does not regularly consume dairy products Drinks caffeinated beverages Onset of menses at age 19 Number of children 1 Impression: The patient has osteoporosis, based on the Right Femoral Neck T-score. Discussion: INCREASED RISK OF FRACTURE. BONE DENSITY IS UNDESIRABLY LOW AT ONE OR MORE SKELETAL SITES, CONSISTENT WITH POSTMENOPAUSAL OSTEOPOROSIS. This patient's lowest T-score meets the World Health Organization's (WHO) criteria for osteoporosis at one or more sites (T-score -2.5 or below). In untreated patients, the risk of osteoporotic fracture increases approximately two-fold for each 1.0 SD decrease in T-score. Low bone density is not the only risk factor for fracture; also consider factors such as patient's age, frailty or poor health, risk of falling, risk of injury, previous osteoporotic fracture, family history of osteoporosis, cigarette smoking, low body weight, etc. Not everyone with low bone mineral density has osteoporosis; osteomalacia and other metabolic bone disorders should also be considered. Patients who have osteoporosis should be evaluated for specific diseases and conditions (secondary causes) that may cause or contribute to bone loss. The [place] Association of Clinical Endocrinologists (AACE) and National Osteoporosis Foundation (NOF) recommend pharmacologic intervention for all postmenopausal women whose T-score is in this range. The patient should follow a healthful lifestyle (good nutrition with adequate calcium and vitamin D, and appropriate weight-bearing exercise). Follow-Up: Consider a repeat BMD and Vertebral Fracture Assessment (VFA) exam in 2 years or sooner if medically necessary, to reassess this patient's status. Reported by: LIENE on 02/22/2025 12:13:00 PM. Reviewed, dictated and finalized at location A.
--- NOTE | ~2025-02-22 | US_ITS ---
Clinical history:Hyperthyroidism EXAM:Ultrasound thyroid TECHNIQUE:Multiple static grayscale images and color Doppler images were obtained of the thyroid gland. Comparisons:None available FINDINGS: Right thyroid lobe measures 4.1 x 1.6 x 2.0 cm and is markedly heterogeneous. Normal vascular flow. Left thyroid lobe measures 2.5 x 1.4 x 1.3 cm and is markedly heterogeneous. Normal vascular flow. There is a 0.4 x 0.4 x 0.5 cm hyperechoic solid nodule in the right thyroid lobe. TR3 Isthmus was not visualized. The study is suboptimal due to the patient's body habitus. IMPRESSION: 1. Thyroid gland is markedly heterogeneous. Consider a thyroid scan to assess for a cold nodule to determine the need for a fine-needle aspiration. 2. The study is suboptimal due to the patient's imaging characteristics. 3. There is a 0.4 x 0.4 x 0.5 cm hyperechoic solid nodule in the right thyroid lobe. TR3 Reviewed, dictated and finalized at location Q. IMPRESSION: 1. Thyroid gland is markedly heterogeneous. Consider a thyroid scan to assess f or a cold nodule to determine the need for a fine-needle aspiration. 2. The study is suboptimal due to the patient's imaging characteristics. 3. There is a 0.4 x 0.4 x 0.5 cm hyperechoic solid nodule in the right thyroid lobe. TR3
--- OUTSIDE RECORDS SUMMARY | 2025-02-22 13:21 | XMS_ITS | Clinical Summary ---
Author Organization [facility] Address [address] [address] Phone Care Team Providers Care Gyro Compass Tester Name Role Phone Carroll Almazan MD Primary Care Provider [phone] Allergies Active Allergy Reactions Criticality Noted Date [...] Lovastatin 10 MG Tablet 03/27/2021 Active nystatin 385112 UNIT/GM Powder 04/08/2021 Acti ve Active Problems Problem Noted Date Diagnosed Date CHEN (obstructive sleep apnea) 01/08/2021 Gastroesophageal reflux disease without esophagi tis 01/08/2021 Non morbid obesity 01/08/2021 Social History Tobacco Use Types Packs/Day Years Used Date Smoking Tobacco: Former Cigarettes 0 Q uit: 04/27/2016 Smokeless Tobacco: Never Alcohol [...] Comments Blood Pressure 134/80 04/12/2021 2:34 PM PRODUCTIVITY ENGINEER Pulse 56 04/12/2021 2:34 PM PRODUCTIVITY ENGINEER Temperature 35.8 C (96.4 F) 04/12/2021 2:34 PM PRODUCTIVITY ENGINEER Respiratory Rate 18 04/12/2021 2:34 PM PRODUCTIVITY ENGINEER Oxygen Saturation 97% 04/12/2021 2:34 PM PRODUCTIVITY ENGINEER Inhaled Oxygen Concentration - - Weight 72.6 kg (160 lb) 04/12/2021 2:34 PM PRODUCTIVITY ENGINEER Height 152.4 cm (5') 04/12/2021 2:34 PM PRODUCTIVITY ENGINEER Body Mass Index 31.25 04/12/2021 2:34 PM PRODUCTIVITY ENGINEER Plan of Treatment Health Maintenance Due Date [...] Insurance MEDICAID [employer] Care Teams Gyro Compass Tester Relationship Specialty Start Date End Date Carroll Almazan MD [address] [place] [address] PCP - General Internal Medicine 09/16/18
--- OUTSIDE RECORDS SUMMARY | 2025-02-22 13:22 | XMS_ITS | Patient Health Record ---
Author Organization [facility] [employer] Address [address] [place] [address] Care Team Providers Care Fixed Interest Dealer Name Role Phone Kayley Downey Unavailable [phone] Reason For Referral No Information Medications Medication [...] Tablet Oral 07/18/2022 Active Ergocalciferol 1.25 MG (90609 UT) Capsule Oral 07/18/2022 Active Lactulose 10 GM/15ML Solution Oral 07/18/2022 Active amLODIPine Besylate 10 MG Tablet Oral 07/18/2022 Active Potassium Chloride Delmis ER 20 MEQ Tablet Extended Release Oral 07/18/2022 Active Furosemide 20 MG Tablet Oral 07/18/2022 Active Clotrimazole 1% Cream External 07/18/2022 Active ARIPiprazole 5 MG Tablet Oral 07/18/2022 Active Acetaminophen Extra Strength 500 MG Tablet Oral 07/18/2022 Activ e Nystatin 271432 UNIT/GM Cream External 07/18/2022 Active Docusate Sodium [...] Aerosol Powder Breath Activated Inhalation *Reorder from [employer] for eRx and Interaction Alerts* 07/18/2022 Active carBAMazepine 200 MG Tablet Oral 07/18/2022 Active Nystop 836473 UNIT/GM Powder External 07/18/2022 Active Acetaminophen 325 [...] Insured Coverage Start Date Coverage End Date [facility] Plan Of [place] - Dos On Or After 20 [address] [place] [address] [id number] TALI GOMEZ Self - patient is the insured
== END 2025-02-22 11:47 | disposition home or self-care (01) ==
LOC: CHSIMG 11:47
PROVIDERS: PCP Internal Medicine; Visit Provider Internal Medicine
DX: M81.0 Age-related osteoporosis without current pathological fracture (principal); E21.3 Hyperparathyroidism, unspecified; M85.89 Other specified disorders of bone density and structure, multiple sites; E04.1 Nontoxic single thyroid nodule
CPT/HCPCS: 76536; 77063; 77067; 77080

== ENCOUNTER 2025-03-29 15:09 | Outpatient (CLI) | payer OTHER, SELFPAY ==
[2025-03-29 15:30] LABS: Hematocrit 36.5 % (35.0-42.0); Hemoglobin 11.7 g/dL (11.7-13.8); Mean Corpuscular HGB Conc 32.1 g/dL (32-36); Mean Corpuscular Hemoglobin 29.4 pg (27.0-31.0); Mean Corpuscular Volume 91.7 fL (78.0-102.0); Platelet Count Result 255 K/mm3 (150-420); Red Blood Count 3.98 M/mm3 (4.20-5.40); White Blood Count 5.9 K/mm3 (4.8-10.8)
[2025-03-29 15:56] LABS: Alanine Aminotransferase 32 U/L (6-35); Albumin Level 4.5 g/dL (3.5-5.1); Alkaline Phosphatase 78 U/L (38-126); Anion Gap 11 mmol/L (4-12); Aspartate Amino Transferase 30 U/L (14-36); Bilirubin,Total 0.2 mg/dL (0.2-1.3); Blood Urea Nitrogen 8 mg/dL (7-17); Calcium 10.4 mg/dL (8.4-10.2); Carbon Dioxide 24 mmol/L (22-30); Chloride 98 mmol/L (98-107); Estimated Glomerular Filt Rate > 60; Glucose 84 mg/dL (65-110); Osmolality Calculated 273 mOsm/kg (285-295); Potassium 4.7 mmol/L (3.4-5.0); Sodium 133 mmol/L (137-145); Total Protein 7.1 g/dL (6.3-8.2)
[2025-03-29 16:11] LABS: Free T3 3.49 pg/mL (2.18-3.98)
[2025-03-29 16:12] LABS: Free T4 Free Thyroxine 1.04 ng/dL (0.78-2.19)
[2025-03-29 16:26] LABS: Thyroid Stimulating Hormone 5.930 uIU/mL (0.465-4.680)
--- OUTSIDE RECORDS SUMMARY | 2025-03-29 16:29 | XMS_ITS | Clinical Summary ---
Author Organization [facility] Address [address] [address] Phone Care Team Providers Care Branch Coordinator Name Role Phone Carroll Almazan MD Primary Care Provider [phone] Allergies Active Allergy Reactions Criticality Noted Date [...] Lovastatin 10 MG Tablet 03/27/2021 Active nystatin 226052 UNIT/GM Powder 04/08/2021 Acti ve Active Problems [...] Comments Blood Pressure 134/80 04/12/2021 2:34 PM STRAND FORMING MACHINE OPERATOR Pulse 56 04/12/2021 2:34 PM STRAND FORMING MACHINE OPERATOR Temperature 35.8 C (96.4 F) 04/12/2021 2:34 PM STRAND FORMING MACHINE OPERATOR Respiratory Rate 18 04/12/2021 2:34 PM STRAND FORMING MACHINE OPERATOR Oxygen Saturation 97% 04/12/2021 2:34 PM STRAND FORMING MACHINE OPERATOR Inhaled Oxygen Concentration - - Weight 72.6 kg (160 lb) 04/12/2021 2:34 PM STRAND FORMING MACHINE OPERATOR Height 152.4 cm (5') 04/12/2021 2:34 PM STRAND FORMING MACHINE OPERATOR Body Mass Index 31.25 04/12/2021 2:34 PM STRAND FORMING MACHINE OPERATOR Plan of Treatment Health Maintenance Due Date [...] Insurance MED[employer]ID [employer] Care Teams Branch Coordinator Relationship Specialty Start Date End Date Carroll Almazan MD [address] [place] [address] PCP - General Internal Medicine 09/16/18
--- OUTSIDE RECORDS SUMMARY | 2025-03-29 16:30 | XMS_ITS | Patient Health Record ---
Author Organization [facility] [employer] Address [address] [place] [address] Care Team Providers Care Dental Claims Processor Name Role Phone Kayley Downey Unavailable [phone] Reason For Referral No Information Medications Medication [...] Tablet Oral 07/18/2022 Active Ergocalciferol 1.25 MG (61606 UT) Capsule Oral 07/18/2022 Active Lactulose 10 GM/15ML Solution Oral 07/18/2022 Active amLODIPine Besylate 10 MG Tablet Oral 07/18/2022 Active Potassium Chloride Delmis ER 20 MEQ Tablet Extended Release Oral 07/18/2022 Active Furosemide 20 MG Tablet Oral 07/18/2022 Active Clotrimazole 1% Cream External 07/18/2022 Active ARIPiprazole 5 MG Tablet Oral 07/18/2022 Active Acetaminophen Extra Strength 500 MG Tablet Oral 07/18/2022 Activ e Nystatin 760970 UNIT/GM Cream External 07/18/2022 Active Docusate Sodium [...] Aerosol Powder Breath Activated Inhalation *Reorder from [employer] for eRx and Interaction Alerts* 07/18/2022 Active carBAMazepine 200 MG Tablet Oral 07/18/2022 Active Nystop 156756 UNIT/GM Powder External 07/18/2022 Active Acetaminophen 325 [...] Insured Coverage Start Date Coverage End Date [facility] Plan Of [place] - Dos On Or After 20 [address] [place] [address] [id number] TALI GOMEZ Self - patient is the insured
== END 2025-03-29 15:10 | disposition home or self-care (01) ==
PROVIDERS: PCP Internal Medicine; Visit Provider Internal Medicine
DX: R21 Rash and other nonspecific skin eruption (principal); E87.1 Hypo-osmolality and hyponatremia; E04.1 Nontoxic single thyroid nodule
CPT/HCPCS: 36415; 80053; 84439; 84443; 84481; 85027